=== PATIENT | female | born 1935 | race Caucasian/White ===

== ENCOUNTER → 2016-09-06 | Outpatient (CLI) | payer MEDICARE, BC ==
[2016-09-06 07:17] LABS: INR 1.2 (<1.1); Partial Thromboplastin Time 25.9 sec (22.0-30.0); Prothrombin Time 11.5 sec (9.0-12.0)
== END | disposition home or self-care (01) ==
LOC: LABWHC1 06:39
PROVIDERS: ATTEND Physical Medicine & Rehabilitation
DX: M54.5 Low back pain (principal); M54.17 Radiculopathy, lumbosacral region; M47.817 Spondylosis without myelopathy or radiculopathy, lumbosacral region; M25.551 Pain in right hip; M43.16 Spondylolisthesis, lumbar region; M41.26 Other idiopathic scoliosis, lumbar region; R20.2 Paresthesia of skin
CPT/HCPCS: 36415; 85610; 85730

== ENCOUNTER → 2016-10-04 | Outpatient (CLI) | payer MEDICARE, BC ==
[2016-10-04 07:53] LABS: INR 1.2 (<1.1); Partial Thromboplastin Time 25.3 sec (22.0-30.0); Prothrombin Time 11.7 sec (9.0-12.0)
== END | disposition home or self-care (01) ==
LOC: LABWHC1 06:38
PROVIDERS: ATTEND Family Medicine
DX: M54.17 Radiculopathy, lumbosacral region (principal); M47.817 Spondylosis without myelopathy or radiculopathy, lumbosacral region; M54.5 Low back pain; M25.551 Pain in right hip; M25.552 Pain in left hip; M43.16 Spondylolisthesis, lumbar region; M41.26 Other idiopathic scoliosis, lumbar region; Z79.01 Long term (current) use of anticoagulants
CPT/HCPCS: 36415; 85610; 85730

== ENCOUNTER → 2016-11-01 | Outpatient (CLI) | payer MEDICARE, BC ==
[2016-11-01 08:54] LABS: INR 1.1 (<1.1); Partial Thromboplastin Time 25.4 sec (22.0-30.0); Prothrombin Time 10.8 sec (9.0-12.0)
== END | disposition home or self-care (01) ==
LOC: LABWHC1 06:39
PROVIDERS: ATTEND Physical Medicine & Rehabilitation
DX: M54.5 Low back pain (principal); M47.817 Spondylosis without myelopathy or radiculopathy, lumbosacral region; M25.551 Pain in right hip; M25.552 Pain in left hip; M43.16 Spondylolisthesis, lumbar region; M41.26 Other idiopathic scoliosis, lumbar region; M51.17 Intervertebral disc disorders with radiculopathy, lumbosacral region; Z79.01 Long term (current) use of anticoagulants
CPT/HCPCS: 36415; 85610; 85730

== ENCOUNTER → 2016-11-20 | Outpatient (CLI) | payer MEDICARE, BC ==
[2016-11-20 07:27] LABS: INR 1.1 (<1.1); Partial Thromboplastin Time 24.8 sec (22.0-30.0); Prothrombin Time 10.6 sec (9.0-12.0)
== END | disposition home or self-care (01) ==
LOC: LABWHC1 06:36
PROVIDERS: ATTEND Physical Medicine & Rehabilitation
DX: M54.17 Radiculopathy, lumbosacral region (principal); M47.817 Spondylosis without myelopathy or radiculopathy, lumbosacral region; M25.551 Pain in right hip; M25.552 Pain in left hip; M54.5 Low back pain; M41.26 Other idiopathic scoliosis, lumbar region; Z79.01 Long term (current) use of anticoagulants
CPT/HCPCS: 36415; 85610; 85730

== ENCOUNTER → 2016-12-31 | Outpatient (CLI) | payer MEDICARE, BC ==
[2016-12-31 08:26] LABS: INR 1.1 (<1.1); Partial Thromboplastin Time 24.7 sec (22.0-30.0); Prothrombin Time 10.7 sec (9.0-12.0)
== END | disposition home or self-care (01) ==
LOC: LABMAIN 06:31
PROVIDERS: ATTEND Physical Medicine & Rehabilitation
DX: Z79.01 Long term (current) use of anticoagulants (principal)
CPT/HCPCS: 36415; 85610; 85730

== ENCOUNTER → 2017-07-13 | Outpatient (CLI) | payer MEDICARE, BC | END | disposition home or self-care (01) | LOC: LABWHC1 14:08 | PROVIDERS: ATTEND Family Medicine | DX: R19.7 Diarrhea, unspecified (principal) | CPT/HCPCS: 87045; 87046; 87324; 87328; 87329 ==

== ENCOUNTER 2021-11-08 07:44 | Inpatient (IN) | payer MEDICARE ==
[2021-11-08] MEDS ORDERED: ONDANSETRON 4 MG/2 ML VIAL IVP STA (08:17)
[2021-11-08] MEDS ORDERED: KETOROLAC 15 MG/ML 1 ML VIAL IVP STA (08:17)
--- NOTE | 2021-11-08 08:43 | ED ---
Fall HPI - General Chief Complaint: Fall Stated Complaint: fall Time Seen by Provider: 11/08/21 07:52 Source: patient, EMS, RN notes reviewed Mode of arrival: EMS Limitations: physical limitation - History of Present Illness Initial Comments: This an 86-year-old female presents emergency Department via EMS chief complaint of fall. Patient states she is trip and fall complains of left hip left knee pain. Patient states she's had prior knee issues. Patient denies any head injury no loss conscious. Patient is refusing pain meds seen it's going to make her sick. Patient denies any chest discomfort, shortness breath, fevers or chills no abdominal complaints no other associated symptoms. - Related Data Home Medications Medication Instructions Recorded Confirmed Budesonide-Formot 160-4.5 Mcg 2 puff INHALATION RT-BID 03/06/14 06/19/16 [Symbicort 160-4.5 Mcg Inhaler] Levothyroxine Sodium [Synthroid] 50 mcg PO DAILY 03/06/14 06/19/16 Montelukast [Singulair] 10 mg PO HS 06/20/15 06/19/16 Metoprolol Tartrate [Lopressor] 50 mg PO BID 06/17/16 06/19/16 Losartan/Hydrochlorothiazide 1 tab PO DAILY 06/19/16 06/19/16 [Losartan-Hctz 100-25 mg Tab] Multivitamins, Thera [Multivitamin 1 tab PO DAILY 06/19/16 06/19/16 (formulary)] Warfarin [Coumadin] 7.5 mg PO SUTHFRSA 06/19/16 06/19/16 Previous Rx's Medication Instructions Recorded Docusate [Colace] 100 mg PO BID cap 06/27/16 Famotidine [Pepcid] 20 mg PO DAILY tab 06/27/16 Gabapentin [Neurontin] 300 mg PO TID cap 06/27/16 Lidocaine 5% Patch [Lidoderm 5% 1 patch TOPICAL Q24H patch 06/27/16 Patch] Mag Hydrox/Al Hydrox/Simeth 30 ml PO QID PRN #0 cup 06/27/16 [Maalox] Meloxicam [Mobic] 7.5 mg PO DAILY tab 06/27/16 Metoprolol Tartrate [Lopressor] 25 mg PO DAILY@1200 tab 06/27/16 Warfarin [Coumadin] 2.5 mg PO ONCE@1800 tab 06/27/16 amLODIPine [Norvasc] 5 mg PO DAILY tab 06/27/16 cloNIDine HCL [Catapres] 0.1 mg PO Q4HR PRN #0 tab 06/27/16 oxyCODONE-APAP 10-325MG [Percocet 1 each PO Q6H PRN #120 tab 06/27/16 10-325 mg] Allergies Allergy/AdvReac Type Severity Reaction Status Date / Time No Known Allergies Allergy Verified 11/08/21 08:07 Review of Systems ROS Statement: Those systems with pertinent positive or pertinent negative responses have been documented in the HPI. ROS Other: All systems not noted in ROS Statement are negative. Past Medical History Past Medical History: Atrial Fibrillation, Asthma, Hypertension, Osteoarthritis (OA), Thyroid Disorder Additional Past Medical History / Comment(s): Aortic regurgitation, hypothyroid, DJD History of Any Multi-Drug Resistant Organisms: C-DIFF Date of last positivie culture/infection: 11/16/2014 MDRO Source:: stool Past Surgical History: Hysterectomy, Joint Replacement, Orthopedic Surgery Additional Past Surgical History / Comment(s): BILATERAL CATARACTS (2013) TOTAL LEFT KNEE REPLACEMENT, R hip IT nailing, colonoscopy, bronchoscopy Past Anesthesia/Blood Transfusion Reactions: No Reported Reaction Past Psychological History: No Psychological Hx Reported Smoking Status: Never smoker Past Alcohol Use History: Rare Past Drug Use History: None Reported - Past Family History Father Family Medical History: Cancer Additional Family Medical History / Comment(s): unsure. "Possibly bone cancer," per patient. Sister(s) Family Medical History: Cancer Additional Family Medical History / Comment(s): Lymphoma Brother(s) Family Medical History: Cancer Additional Family Medical History / Comment(s): Melanoma General Exam Limitations: no limitations General appearance: alert, in no apparent distress Head exam: Present: atraumatic, normocephalic, normal inspection Eye exam: Present: normal appearance, PERRL, EOMI. Absent: scleral icterus, conjunctival injection, periorbital swelling ENT exam: Present: normal exam, normal oropharynx, mucous membranes moist Neck exam: Present: normal inspection, full ROM. Absent: tenderness, meningismus, lymphadenopathy Respiratory exam: Present: normal lung sounds bilaterally. Absent: respiratory distress, wheezes, rales, rhonchi, stridor Cardiovascular Exam: Present: regular rate, normal rhythm, normal heart sounds. Absent: systolic murmur, diastolic murmur, rubs, gallop, clicks Extremities exam: Present: other (Left hip, left knee moderate tenderness, patient is flexed position, leg is neurovascularly intact there is no other obvious deformity, no ecchymosis noted) Back exam: Present: full ROM. Absent: tenderness Neurological exam: Present: alert Skin exam: Present: warm, dry, intact, normal color. Absent: rash Course Vital Signs 11/08/21 07:50 Temperature 98.0 F Pulse Rate 70 Respiratory 20 Rate Blood Pressure 142/79 O2 Sat by Pulse 93 L Oximetry Medical Decision Making - Medical Decision Making I discuss case with orthopedics associate who accepts admission for surgery recommends patient be admitted to medicine given multiple morbidities and patient need to be cleared for surgery. Disposition Clinical Impression: Fall, Hip fracture, left Disposition: ADMITTED IP TO THIS [facility] Condition: Fair Referrals: Ander Wolff MD [Primary Care Provider] - 1-2 days
--- NOTE | 2021-11-08 09:17 | XR ---
EXAMINATION TYPE: XR chest 1V DATE OF EXAM: 11/08/2021 COMPARISON: Chest x-ray June 20, 2015. Chest CT June 09, 2016. HISTORY: Presurgical study. Recent hip fracture. TECHNIQUE: Single frontal supine view of the chest is obtained. FINDINGS: There is chronic parenchymal change without suspicious focal air space opacity, pleural ef fusion, or pneumothorax seen. Suggestion of new nodularity along the left superior heart border towar ds further workup. Cardiomegaly remains present with atherosclerotic thoracic aorta. The osseous st ructures are intact. IMPRESSION: Chronic parenchymal changes and cardiomegaly without acute pulmonary process. New nodula rity along the left superior heart border, advise CT to further evaluate.
[2021-11-08] MEDS ORDERED: NALOXONE 0.4 MG/ML 1 ML VIAL IV PRN ×2 (09:48→09:49)
[2021-11-08] MEDS ORDERED: HYDROmorphone 0.5 MG/0.5 ML SYRINGE IVP PRN (09:48)
--- NOTE | 2021-11-08 09:49 | XR ---
EXAMINATION TYPE: AP view pelvis and 2 views left hip DATE OF EXAM: 11/08/2021 Comparison: 06/19/2016 Clinical History: 86-year-old female with fall pain Findings: There is previous antegrade intramedullary nail and screw fixation of the right hip. Chronic healed f racture deformities right superior and inferior pubic rami. There is a annual transcervical femoral n rigoberto fracture at the left with angulation and proximal migration as well as external rotation. Osteope michael. Impression: Displaced, angulated, and proximally migrated transcervical left femoral neck fracture. Chronic heale d fracture deformities right superior and inferior pubic rami.
--- NOTE | 2021-11-08 09:51 | XR ---
EXAMINATION TYPE: XR knee limited LT DATE OF EXAM: 11/08/2021 COMPARISON: 03/16/2014 HISTORY: 86-year-old female with fall and pain TECHNIQUE: 2 views FINDINGS: 2 views demonstrating left knee total arthroplasty. Both distal femoral and proximal tibial component s of the prosthesis appear well seated without periprosthetic fracture. There is a small knee joint e ffusion noted without richard lipohemarthrosis. Mild anterior soft tissue swelling. Vascular calcificat ion. IMPRESSION: Mild anterior soft tissue swelling and small knee joint effusion, probably reactive. Otherwise, uncom plicated appearance to the left total knee arthroplasty on these 2 views.
[2021-11-08] MEDS ORDERED: ACETAMINOPHEN TAB 325 MG TAB PO PRN (10:31)
[2021-11-08] MEDS ORDERED: METOPROLOL TARTRATE 50 MG TAB PO SCH (10:45)
[2021-11-08 10:48] LABS: Appearance,Urine Clear (Clear); Bilirubin,Urine Negative (Negative); Blood,Urine Negative (Negative); Color,Urine Light Yellow; Glucose,Urine (UA) Negative (Negative); Hyaline Casts,Urine 1 /lpf (0-2); Ketones,Urine Negative (Negative); Leukocyte Esterase,Urine Negative (Negative); Mucus,Urine Rare /hpf; Nitrite,Urine Negative (Negative); PH, Urine 7.5 (5.0-8.0); Protein,Urine 1+ (Negative); RBC,Urine 1 /hpf (0-5); Specific Gravity,Urine 1.009 (1.001-1.035); Urobilinogen,Urine <2.0 mg/dL (<2.0); WBC,Urine <1 /hpf (0-5)
[2021-11-08 10:53] LABS: Basophils % (A) 0 %; Eosinophils % (A) 0 %; HGB 12.4 gm/dL (11.4-16.0); Lymphocytes # (A) 0.5 k/uL (1.0-4.8); Lymphocytes % (A) 5 %; MCH 33.9 pg (25.0-35.0); MCHC 33.6 g/dL (31.0-37.0); Macrocytosis Slight; Mean Platelet Volume 7.7; Monocytes # (A) 0.6 k/uL (0-1.0); Monocytes % (A) 6 %; Neutrophils % (A) 88 %; Platelet Count 149 k/uL (150-450); RBC 3.66 m/uL (3.80-5.40); RDW 13.8 % (11.5-15.5); WBC 10.2 k/uL (3.8-10.6)
[2021-11-08 11:08] LABS: ALT 22 U/L (4-34); AST 49 U/L (14-36); African American GFR (CKD) >90 (>60 ml/min/1.73 sqM); Albumin 4.3 g/dL (3.5-5.0); Alkaline Phosphatase 79 U/L (38-126); Anion Gap 9 mmol/L; Blood Urea Nitrogen 22 mg/dL (7-17); Calcium 9.3 mg/dL (8.4-10.2); Carbon Dioxide 23 mmol/L (22-30); Chloride 97 mmol/L (98-107); Glucose 116 mg/dL (74-99); Magnesium 1.6 mg/dL (1.6-2.3); Non-African American GFR(CKD) 79 (>60 ml/min/1.73 sqM); Potassium 3.8 mmol/L (3.5-5.1); Sodium 129 mmol/L (137-145); Total Bilirubin 0.9 mg/dL (0.2-1.3); Total Protein 8.2 g/dL (6.3-8.2)
[2021-11-08 11:11] LABS: INR 2.5 (<1.2); Partial Thromboplastin Time 28.6 sec (22.0-30.0); Prothrombin Time 24.9 sec (9.0-12.0)
[2021-11-08] MEDS: LOSARTAN-HCTZ 50-12.5 MG 1 EACH TAB PO SCH (11:40)
[2021-11-08] MEDS: CALCIUM CARBONATE 500 MG CHEWABLE PO SCH (11:40)
[2021-11-08] MEDS: LEVOTHYROXINE 50 MCG TAB PO SCH (11:40)
[2021-11-08] MEDS: LIDOCAINE 5% PATCH TOPICAL SCH (11:41)
[2021-11-08] MEDS: KETOROLAC 15 MG/ML 1 ML VIAL IVP SCH ×3 (11:42→23:35)
--- NOTE | 2021-11-08 12:39 | P.HPIM ---
History of Present Illness H&P Date: 11/08/21 Chief Complaint: Fall Patient is a pleasant 86-year-old female, who presented to the emergency room after a fall. Patient states she is tripped and fell onto left knee and left hip while getting out of bed in the morning. Patient denies syncope, loss of consciousness, or head injury. Patient has a pertinent medical history of A. fib on Coumadin, asthma, hypertension, osteoarthritis, hypothyroidism, and aortic regurgitation. Patient has a surgical history of total left knee replacement and right hip IT nailing. Hip x-ray found displaced, angulated and proximally migrated transcervical left femoral neck fracture. Left knee x-ray found mild anterior soft tissue swelling and small knee joint effusion. Chest x-ray found chronic parenchymal changes and cardiomegaly without acute pulmonary process. EKG showed A. fib with a rate of 100. INR was 2.5. Patient will be admitted for pain control and to obtain clearance for surgical intervention. Cardiology was consulted for cardio clearance and management of anticoagulant. Review of Systems Constitutional: Denies chills, Denies fever Ears, nose, mouth and throat: Denies dysphagia, Denies sore throat Cardiovascular: Reports irregular heart beat, Denies edema, Denies shortness of breath Respiratory: Denies cough, Denies wheezing Gastrointestinal: Denies abdominal pain, Denies nausea, Denies vomiting Genitourinary: Denies dysuria Musculoskeletal: Reports fractures, Reports low back pain, Reports myalgias Musculoskeletal: left: hip pain, knee pain Integumentary: Denies rash, Denies wounds Neurological: Reports hearing difficulties, Denies change in speech, Denies double vision, Denies syncope, Denies vertigo, Denies visual changes Psychiatric: Denies anxiety, Denies confusion Endocrine: Denies fatigue, Denies high blood sugars Hematologic/Lymphatic: Reports easy bruising Allergic/Immunologic: Denies wheezing Past Medical History Past Medical History: Atrial Fibrillation, Asthma, Hypertension, Osteoarthritis (OA), Thyroid Disorder Additional Past Medical History / Comment(s): Aortic regurgitation, hypothyroid, DJD History of Any Multi-Drug Resistant Organisms: C-DIFF Date of last positivie culture/infection: 11/16/2014 MDRO Source:: stool Past Surgical History: Hysterectomy, Joint Replacement, Orthopedic Surgery Additional Past Surgical History / Comment(s): BILATERAL CATARACTS (2013) TOTAL LEFT KNEE REPLACEMENT, R hip IT nailing, colonoscopy, bronchoscopy Past Anesthesia/Blood Transfusion Reactions: No Reported Reaction Past Psychological History: No Psychological Hx Reported Smoking Status: Never smoker Past Alcohol Use History: Rare Past Drug Use History: None Reported - Past Family History Father Family Medical History: Cancer Additional Family Medical History / Comment(s): unsure. "Possibly bone cancer," per patient. Sister(s) Family Medical History: Cancer Additional Family Medical History / Comment(s): Lymphoma Brother(s) Family Medical History: Cancer Additional Family Medical History / Comment(s): Melanoma Medications and Allergies Home Medications Medication Instructions Recorded Confirmed Type Levothyroxine Sodium [Synthroid] 50 mcg PO DAILY 03/06/14 11/08/21 History Metoprolol Tartrate [Lopressor] 50 mg PO BID 06/17/16 11/08/21 History Losartan/Hydrochlorothiazide 1 tab PO DAILY 06/19/16 11/08/21 History [Losartan-Hctz 100-25 mg Tab] Multivitamins, Thera [Multivitamin 1 tab PO DAILY 06/19/16 11/08/21 History (formulary)] Warfarin [Coumadin] 5 mg PO HS 06/19/16 11/08/21 History Lidocaine 5% Patch [Lidoderm 5% 1 patch TOPICAL Q24H patch 06/27/16 11/08/21 Rx Patch] Calcium Carbonate [Calcium] 600 mg PO DAILY 11/08/21 11/08/21 History Metoprolol Tartrate 25 mg PO DAILY@1200 11/08/21 11/08/21 History Allergies Allergy/AdvReac Type Severity Reaction Status Date / Time No Known Allergies Allergy Verified 11/08/21 10:11 Physical Exam Vitals: Vital Signs Temp Pulse Resp BP Pulse Ox 11/08/21 11:56 102 H 18 138/76 94 L 11/08/21 07:50 98.0 F 70 20 142/79 93 L Intake and Output 11/07/21 11/08/21 11/08/21 22:59 06:59 14:59 Output Total 250 Balance -250 Output: Urine 250 Uretheral (Garza) 250 Other: Weight 50.802 kg - Constitutional General appearance: average body habitus, cooperative, no acute distress - EENT Eyes: EOMI, PERRLA ENT: hard of hearing, normal oropharynx Ears: bilateral: normal - Neck Neck: normal ROM - Respiratory Respiratory: bilateral: diminished - Cardiovascular Heart rate: 100 Rhythm: irregularly irregular radial pulse Peripheral Pulses: bilateral: Normal dorsalis pedis Peripheral Pulses: bilateral: Normal - Gastrointestinal General gastrointestinal: normal bowel sounds, soft - Integumentary Integumentary: normal turgor - Neurologic Neurologic: focal deficits - Musculoskeletal non weightbearing at this time, upper extrem normal strength decreased range of motion in left lower extrem - Psychiatric confused at times Psychiatric: A&O x's 3, appropriate affect Results CBC & Chem 7: 11/08/21 10:23 11/08/21 10:23 Labs: Abnormal Lab Results - Last 24 Hours (Table) 11/08/21 11/08/21 11/08/21 Range/Units 10:23 10:23 10:23 RBC 3.66 L (3.80-5.40) m/uL MCV 101.0 H (80.0-100.0) fL Plt Count 149 L (150-450) k/uL Neutrophils # 9.0 H (1.3-7.7) k/uL Lymphocytes # 0.5 L (1.0-4.8) k/uL PT 24.9 H (9.0-12.0) sec INR 2.5 H (<1.2) Sodium 129 L (137-145) mmol/L Chloride 97 L (98-107) mmol/L BUN 22 H (7-17) mg/dL Glucose 116 H (74-99) mg/dL AST 49 H (14-36) U/L Urine Protein (Negative) Urine Mucus (None) /hpf 11/08/21 Range/Units 10:33 RBC (3.80-5.40) m/uL MCV (80.0-100.0) fL Plt Count (150-450) k/uL Neutrophils # (1.3-7.7) k/uL Lymphocytes # (1.0-4.8) k/uL PT (9.0-12.0) sec INR (<1.2) Sodium (137-145) mmol/L Chloride (98-107) mmol/L BUN (7-17) mg/dL Glucose (74-99) mg/dL AST (14-36) U/L Urine Protein 1+ H (Negative) Urine Mucus Rare H (None) /hpf Chest x-ray: report reviewed Thrombosis Risk Factor Assmnt - DVT/VTE Prophylaxis DVT/VTE Prophylaxis: Mechanical Prophylaxis ordered, Contraindicated - See note (on coumadin, held for hip surgery) - Choose All That Apply Any of the Below Risk Factors Present?: Yes Each Risk Factor Represents 2 Points: Major surgery, Patient confined to bed Each Risk Factor Represents 3 Points: Age 75 years or older Thrombosis Risk Factor Assessment Total Risk Factor Score: 7 Thrombosis Risk Factor Assessment Level: High Risk Assessment and Plan Assessment: Left femoral neck fracture Left knee soft tissue swelling and pain Atrial fib with controlled ventricular response, on Coumadin Hypertension Osteoarthritis Hypothyroidism History of aortic regurgitation Plan: Orthopedic consult for left hip fracture Cardio consult for surgical clearance, echo ordered continue toradol and tylenol for pain Coumadin on hold for possible surgery ekg monitor tech to assess afib rate PT and OT consult for rehab further recommendations to come based on patients clinical course Time with Patient: Greater than 30
[2021-11-08] MEDS: SODIUM CHLORIDE 0.9% 1,000 ML IV SCH (13:11)
--- NOTE | 2021-11-08 13:12 | P.CRDCN ---
History of Present Illness Consult date: 11/08/21 History of present illness: HISTORY OF PRESENT ILLNESS: This is a 86-year-old female with a past medical history significant for persistent atrial fibrillation on warfarin, hypertension, hyperlipidemia, valvular heart disease. Patient follows in the office with Dr. Preciado. We have been asked to see the patient in consultation for cardiac clearance. Patient examined at the bedside. Patient presented to the hospital secondary to fall. Hip x-ray revealed displaced, angulated, and proximally migrated trans-cervical left femoral neck fracture. Patient currently denies chest pain or pressure. She denies shortness of breath. Vital signs are stable. * EKG reveals atrial fibrillation with a heart rate of 102. * Chest xray chronic parenchymal changes and cardiomegaly without acute pulmonary process. New nodularity along the left superior heart border. * Laboratory data: WBC 10.2. Hemoglobin 12.4. Platelet count 149. INR 2.5. Sodium 129. BUN 22. Creatinine 0.67. Magnesium 1.6. * Current home cardiac medications include metoprolol tartrate 50 mg twice a day, losartanhydrochlorothiazide 23956 milligrams daily, metoprolol titrate 25 mg daily, warfarin 5 mg at night * Most recent echocardiogram obtained in October 2020 revealed ejection fraction 55%, moderate aortic regurgitation, moderate mitral regurgitation, moderate tricuspid regurgitation, and moderate pulmonary artery hypertension * Patient underwent Lexiscan stress test in December 2015 which was negative for ischemia REVIEW OF SYSTEMS: At the time of my exam: CONSTITUTIONAL: Denies fever or chills. HEENT: Denies blurred vision, vision changes, or eye pain. Denies hemoptysis CARDIOVASCULAR: Denies chest pain. Denies orthopnea. Denies PND. Denies palpitations RESPIRATORY: Denies shortness of breath. GASTROINTESTINAL: Denies abdominal pain. Denies nausea or vomiting. HEMATOLOGIC: Denies bleeding disorders. GENITOURINARY: Denies any blood in urine. SKIN: Denies pruitis. Denies rash. PHYSICAL EXAM: VITAL SIGNS: Reviewed. GENERAL: Well-developed in no acute distress. HEENT: Head is normocephalic. Pupils are equal, round. Sclerae anicteric. Mucous membranes of the mouth are moist. Neck supple. No JVD or thyromegaly LUNGS: Respirations even and unlabored. Lungs essentially clear to auscultation bilaterally. HEART: Irregular rate and rhythm. S1 and S2 heard. Systolic murmur noted ABDOMEN: Soft. Nondistended. Nontender. EXTREMITIES: Normal range of motion. No clubbing or cyanosis. Peripheral pulses intact. No lower extremity edema NEUROLOGIC: Awake and alert. Oriented x 3. ASSESSMENT: Left hip fracture, status post fall Persistent atrial fibrillation Hypertension Hyperlipidemia Valvular heart disease PLAN: Obtain 2-D echo to assess cardiac structure and function Hold Coumadin Increase metoprolol to 50mg TID Patient has no complaints of angina and is clinically not in heart failure Recommend cautious fluid administration Recommend optimal blood pressure control There are no absolute contraindications from a cardiac standpoint to undergo surgical intervention with orthopedics Further recommendations for inpatient course Nurse practitioner note has been reviewed by physician. Signing provider agrees with the documented findings, assessment, and plan of care. Past Medical History Past Medical History: Atrial Fibrillation, Asthma, Hypertension, Osteoarthritis (OA), Thyroid Disorder Additional Past Medical History / Comment(s): Aortic regurgitation, hypothyroid, DJD History of Any Multi-Drug Resistant Organisms: C-DIFF Date of last positivie culture/infection: 11/16/2014 MDRO Source:: stool Past Surgical History: Hysterectomy, Joint Replacement, Orthopedic Surgery Additional Past Surgical History / Comment(s): BILATERAL CATARACTS (2013) TOTAL LEFT KNEE REPLACEMENT, R hip IT nailing, colonoscopy, bronchoscopy Past Anesthesia/Blood Transfusion Reactions: No Reported Reaction Past Psychological History: No Psychological Hx Reported Smoking Status: Never smoker Past Alcohol Use History: Rare Past Drug Use History: None Reported - Past Family History Father Family Medical History: Cancer Additional Family Medical History / Comment(s): unsure. "Possibly bone cancer," per patient. Sister(s) Family Medical History: Cancer Additional Family Medical History / Comment(s): Lymphoma Brother(s) Family Medical History: Cancer Additional Family Medical History / Comment(s): Melanoma Medications and Allergies Home Medications Medication Instructions Recorded Confirmed Type Levothyroxine Sodium [Synthroid] 50 mcg PO DAILY 03/06/14 11/08/21 History Metoprolol Tartrate [Lopressor] 50 mg PO BID 06/17/16 11/08/21 History Losartan/Hydrochlorothiazide 1 tab PO DAILY 06/19/16 11/08/21 History [Losartan-Hctz 100-25 mg Tab] Multivitamins, Thera [Multivitamin 1 tab PO DAILY 06/19/16 11/08/21 History (formulary)] Warfarin [Coumadin] 5 mg PO HS 06/19/16 11/08/21 History Lidocaine 5% Patch [Lidoderm 5% 1 patch TOPICAL Q24H patch 06/27/16 11/08/21 Rx Patch] Calcium Carbonate [Calcium] 600 mg PO DAILY 11/08/21 11/08/21 History Metoprolol Tartrate 25 mg PO DAILY@1200 11/08/21 11/08/21 History Allergies Allergy/AdvReac Type Severity Reaction Status Date / Time No Known Allergies Allergy Verified 11/08/21 10:11 Physical Exam Vitals: Vital Signs Temp Pulse Resp BP Pulse Ox 11/08/21 07:50 98.0 F 70 20 142/79 93 L Intake and Output 11/07/21 11/08/21 11/08/21 22:59 06:59 14:59 Output Total 250 Balance -250 Output: Urine 250 Uretheral (Garza) 250 Other: Weight 50.802 kg Results 11/08/21 10:23 11/08/21 10:23 Cardiac Enzymes 11/08/21 Range/Units 10:23 AST 49 H (14-36) U/L Coagulation 11/08/21 Range/Units 10:23 PT 24.9 H (9.0-12.0) sec APTT 28.6 (22.0-30.0) sec CBC 11/08/21 Range/Units 10:23 WBC 10.2 (3.8-10.6) k/uL RBC 3.66 L (3.80-5.40) m/uL Hgb 12.4 (11.4-16.0) gm/dL Hct 37.0 (34.0-46.0) % Plt Count 149 L (150-450) k/uL Comprehensive Metabolic Panel 11/08/21 Range/Units 10:23 Sodium 129 L (137-145) mmol/L Potassium 3.8 (3.5-5.1) mmol/L Chloride 97 L (98-107) mmol/L Carbon Dioxide 23 (22-30) mmol/L BUN 22 H (7-17) mg/dL Creatinine 0.67 (0.52-1.04) mg/dL Glucose 116 H (74-99) mg/dL Calcium 9.3 (8.4-10.2) mg/dL AST 49 H (14-36) U/L ALT 22 (4-34) U/L Alkaline Phosphatase 79 (38-126) U/L Total Protein 8.2 (6.3-8.2) g/dL Albumin 4.3 (3.5-5.0) g/dL Current Medications Generic Name Dose Route Start Last Admin Trade Name Freq PRN Reason Stop Dose Admin Acetaminophen 650 mg 11/08/21 10:31 Acetaminophen Tab 325 Mg Tab PO Q4HR PRN Fever and/ or Pain Hydrocodone Bitart/Acetaminophen 1 each 11/08/21 09:48 Hydrocodone/Apap 5-325mg 1 Each Tab PO Q4HR PRN Moderate Pain Calcium Carbonate/Glycine 500 mg 11/08/21 10:30 11/08/21 11:40 Calcium Carbonate 500 Mg Chewable PO 500 mg DAILY REED Administration HCTZ/Losartan Potassium 2 each 11/08/21 10:45 11/08/21 11:40 Losartan-Hctz 50-12.5 Mg 1 Each Tab PO 2 each DAILY REED Administration Ketorolac Tromethamine 15 mg 11/08/21 12:00 11/08/21 11:42 Ketorolac 15 Mg/Ml 1 Ml Vial IVP 11/11/21 10:42 15 mg Q6HR REED Administration Levothyroxine Sodium 50 mcg 11/08/21 10:45 11/08/21 11:40 Levothyroxine 50 Mcg Tab PO 50 mcg 0630 REED Administration Lidocaine 1 patch 11/08/21 10:45 11/08/21 11:41 Lidocaine 5% Patch TOPICAL 1 patch Q24HR REED Administration Protocol Metoprolol Tartrate 50 mg 11/08/21 10:45 11/08/21 11:41 Metoprolol Tartrate 50 Mg Tab PO 50 mg BID REED Administration Metoprolol Tartrate 25 mg 11/09/21 12:00 Metoprolol Tartrate 25 Mg Tab PO DAILY@1200 [facility] Multivitamins 1 each 11/09/21 09:00 Multivitamins, Thera 1 Each Tab PO DAILY [facility] Naloxone HCl 0.2 mg 11/08/21 09:49 Naloxone 0.4 Mg/Ml 1 Ml Vial IV Q2M PRN Opioid Reversal Ondansetron HCl 4 mg 11/08/21 09:48 Ondansetron 4 Mg/2 Ml Vial IVP Q8HR PRN Nausea And Vomiting Intake and Output 11/07/21 11/08/21 11/08/21 22:59 06:59 14:59 Output Total 250 Balance -250 Output: Urine 250 Uretheral (Garza) 250 Other: Weight 50.802 kg Patient Weight 11/09/21 06:59 Weight 50.802 kg 11/08/21 10:23 11/08/21 10:23
[2021-11-08] MEDS ORDERED: RX INFO: IV CONTRAST WAS GIVEN 1 EACH MISC MISCELLANE PRN (14:53)
--- NOTE | 2021-11-08 15:56 | CT ---
EXAMINATION TYPE: CT chest w con DATE OF EXAM: 11/08/2021 COMPARISON: Chest CT June 09, 2016. Chest x-ray earlier today HISTORY: Xray follow up. CT DLP: 295.5 mGycm. Automated Exposure Control for Dose Reduction was Utilized. TECHNIQUE: CT scan of the thorax is performed following with IV Contrast, patient injected with 100 mL of Isovue 300. FINDINGS: LUNGS: Increasing peripheral reticulation and intralobular septal thickening in the right lung. No hodge spicious greater than 5 mm pulmonary nodules or masses with particular attention to the left superior heart border at area of concern on x-ray. There is no pleural effusion or pneumothorax seen. The tr acheobronchial tree is patent. MEDIASTINUM: There are no greater than 1 cm hilar or mediastinal lymph nodes. No pericardial effusi on is seen. Cardiomegaly with severe right atrial dilatation. Enlarged pulmonary arteries suggesting underlying pulmonary artery hypertension. Moderate calcified plaque of the aorta. OTHER: No additional significant abnormality is seen. IMPRESSION: No suspicious new pulmonary nodules or masses. Cardiomegaly with mild right-sided interst itial edema.
[2021-11-08] MEDS: METOPROLOL TARTRATE 50 MG TAB PO SCH ×2 (17:15→21:42)
[2021-11-08] MEDS: MORPHINE SULFATE 2 MG/ML SYRINGE IVP PRN (17:16)
[2021-11-08] MEDS: HYDROcodone/APAP 5-325MG 1 EACH TAB PO PRN (21:41)
[2021-11-09] MEDS: HYDROcodone/APAP 5-325MG 1 EACH TAB PO PRN (03:20)
[2021-11-09] MEDS: KETOROLAC 15 MG/ML 1 ML VIAL IVP SCH ×4 (05:41→23:43)
[2021-11-09] MEDS: LEVOTHYROXINE 50 MCG TAB PO SCH (05:42)
[2021-11-09] MEDS: MORPHINE SULFATE 2 MG/ML SYRINGE IVP PRN (05:45)
[2021-11-09] MEDS ORDERED: ONDANSETRON 4 MG/2 ML VIAL IVP ONE ×2 (06:42→15:51)
[2021-11-09] MEDS ORDERED: DEXAMETHASONE SOD PHOSPHATE 4 MG/ML 1 ML VIAL IV ONE (06:42)
[2021-11-09] MEDS ORDERED: LIDOCAINE 1% (10MG/ML) FOR IV START INTRADERMA PRN (06:42)
[2021-11-09] MEDS ORDERED: HYDROmorphone 0.5 MG/0.5 ML SYRINGE IVP PRN ×3 (07:00→08:09)
[2021-11-09] MEDS: LOSARTAN-HCTZ 50-12.5 MG 1 EACH TAB PO SCH (08:20)
[2021-11-09] MEDS: LACTATED RINGERS 1,000 ML IV SCH ×3 (08:20→16:11)
[2021-11-09] MEDS: CALCIUM CARBONATE 500 MG CHEWABLE PO SCH (08:20)
[2021-11-09] MEDS: HYDROmorphone 0.5 MG/0.5 ML SYRINGE IVP PRN ×3 (08:21→21:41)
[2021-11-09] MEDS: METOPROLOL TARTRATE 50 MG TAB PO SCH ×3 (08:21→22:36)
[2021-11-09] MEDS: LIDOCAINE 5% PATCH TOPICAL SCH (08:25)
[2021-11-09] MEDS: MULTIVITAMINS, THERA 1 EACH TAB PO SCH (08:25)
--- NOTE | 2021-11-09 08:43 | P.CNOR ---
History of Present Illness - [facility] Consult date: 11/09/21 Consult reason: fracture History of present illness: Patient is an 86-year-old female seen at bedside this morning in consultation for left hip fracture. She presented to the emergency Department yesterday via EMS chief complaint of fall. Patient states she tripped and fell at home. Patient states she's had prior knee issues. Patient denies any head injury no loss conscious. She had prior surgery on right hip and knee per Dr. Brand. Patient denies any chest discomfort, shortness breath, fevers or chills no abdominal complaints no other associated symptoms. Review of Systems All systems: negative Constitutional: Denies chills, Denies fever Eyes: denies blurred vision, denies pain Ears, nose, mouth and throat: Denies headache, Denies sore throat Cardiovascular: Denies chest pain, Denies shortness of breath Respiratory: Denies cough Gastrointestinal: Denies abdominal pain, Denies diarrhea, Denies nausea, Denies vomiting Genitourinary: Denies dysuria, Denies hematuria Musculoskeletal: Denies myalgias Integumentary: Denies pruritus, Denies rash Neurological: Denies numbness, Denies weakness Psychiatric: Denies anxiety, Denies depression Endocrine: Denies fatigue, Denies weight change Past Medical History Past Medical History: Atrial Fibrillation, Asthma, Hypertension, Osteoarthritis (OA), Thyroid Disorder Additional Past Medical History / Comment(s): Aortic regurgitation, hypothyroid, DJD History of Any Multi-Drug Resistant Organisms: C-DIFF Year Discovered:: 11/16/2014 MDRO Source:: stool Past Surgical History: Hysterectomy, Joint Replacement, Orthopedic Surgery Additional Past Surgical History / Comment(s): BILATERAL CATARACTS (2013) TOTAL LEFT KNEE REPLACEMENT, R hip IT nailing, colonoscopy, bronchoscopy Past Anesthesia/Blood Transfusion Reactions: No Reported Reaction Past Psychological History: No Psychological Hx Reported Additional Psychological History / Comment(s): Pt resides alone. She has cane and rolling push walker. She is independent. She drives. Smoking Status: Never smoker Past Alcohol Use History: Rare Past Drug Use History: None Reported - Past Family History Father Family Medical History: Cancer Additional Family Medical History / Comment(s): unsure. "Possibly bone cancer," per patient. Sister(s) Family Medical History: Cancer Additional Family Medical History / Comment(s): Lymphoma Brother(s) Family Medical History: Cancer Additional Family Medical History / Comment(s): Melanoma Medications and Allergies Home Medications Medication Instructions Recorded Confirmed Type Levothyroxine Sodium [Synthroid] 50 mcg PO DAILY 03/06/14 11/08/21 History Metoprolol Tartrate [Lopressor] 50 mg PO BID 06/17/16 11/08/21 History Losartan/Hydrochlorothiazide 1 tab PO DAILY 06/19/16 11/08/21 History [Losartan-Hctz 100-25 mg Tab] Multivitamins, Thera [Multivitamin 1 tab PO DAILY 06/19/16 11/08/21 History (formulary)] Warfarin [Coumadin] 5 mg PO HS 06/19/16 11/08/21 History Lidocaine 5% Patch [Lidoderm 5% 1 patch TOPICAL Q24H patch 06/27/16 11/08/21 Rx Patch] Calcium Carbonate [Calcium] 600 mg PO DAILY 11/08/21 11/08/21 History Metoprolol Tartrate 25 mg PO DAILY@1200 11/08/21 11/08/21 History Allergies Allergy/AdvReac Type Severity Reaction Status Date / Time No Known Allergies Allergy Verified 11/08/21 10:11 Physical Examination Inspection of left lower extremity shows a shortened externally rotated left leg. There are no wounds. ROM of hip is not tested due to fracture. Neurovascular status is grossly intact with motor and sensation throughout left lower extremity. Calf is SNT. 2+ DP pulse and less than 2 sec cap refill is pres ent. Results Xrays of left hip shows a displaced femoral neck fracture - Labs Labs: Abnormal Lab Results - Last 24 Hours (Table) 11/08/21 11/08/21 11/08/21 Range/Units 10:23 10:23 10:23 RBC 3.66 L (3.80-5.40) m/uL MCV 101.0 H (80.0-100.0) fL Plt Count 149 L (150-450) k/uL Neutrophils # 9.0 H (1.3-7.7) k/uL Lymphocytes # 0.5 L (1.0-4.8) k/uL PT 24.9 H (9.0-12.0) sec INR 2.5 H (<1.2) Sodium 129 L (137-145) mmol/L Chloride 97 L (98-107) mmol/L BUN 22 H (7-17) mg/dL Glucose 116 H (74-99) mg/dL AST 49 H (14-36) U/L Urine Protein (Negative) Urine Mucus (None) /hpf 11/08/21 Range/Units 10:33 RBC (3.80-5.40) m/uL MCV (80.0-100.0) fL Plt Count (150-450) k/uL Neutrophils # (1.3-7.7) k/uL Lymphocytes # (1.0-4.8) k/uL PT (9.0-12.0) sec INR (<1.2) Sodium (137-145) mmol/L Chloride (98-107) mmol/L BUN (7-17) mg/dL Glucose (74-99) mg/dL AST (14-36) U/L Urine Protein 1+ H (Negative) Urine Mucus Rare H (None) /hpf H & H 11/08/21 Range/Units 10:23 Hgb 12.4 (11.4-16.0) gm/dL Hct 37.0 (34.0-46.0) % Coagulation 11/08/21 Range/Units 10:23 INR 2.5 H (<1.2) Result Diagrams: 11/08/21 10:23 11/08/21 10:23 - Diagnostic results Hip x-ray: report reviewed, image reviewed Assessment and Plan (1) Hip fracture, left Narrative/Plan: Patient has been reviewed with Dr. Celestin. Plan will be to proceed with surgical intervention including a left hip hemiarthroplasty. She has been NPO. Procedure and consent have been ordered. IM and cardiology also on board. She will likely need placement post op. Continue pain management, DVT prophylaxis and medical management. Current Visit: Yes Status: Acute Priority: Medium Code(s): S72.002A - FRACTURE OF UNSP PART OF NECK OF LEFT FEMUR, INIT SNOMED Code(s): 706401932 Time with Patient: Less than 30
--- NOTE | 2021-11-09 08:44 | ECHOF ---
Referral Reason:cardiomegaly MEASUREMENTS -------- HEIGHT: 154.9 cm WEIGHT: 50.8 kg BP: 142/79 IVSd: 1.1 cm (0.6 - 1.1) LVIDd: 3.4 cm (3.9 - 5.3) LVPWd: 1.0 cm (0.6 - 1.1) EDV(Teich): 48 ml IVSs: 1.5 cm LVIDs: 2.3 cm LVPWs: 1.5 cm %IVS Thck: 38 % ESV(Teich): 18 ml EF(Teich): 63 % %FS: 33 % SV(Teich): 31 ml LA Diam: 2.9 cm (2.7 - 3.8) RVIDd: 2.0 cm (< 3.3) Ao Diam: 3.0 cm (2.0 - 3.7) AV Cusp: 1.6 cm (1.5 - 2.6) EPSS: 0.4 cm MV DecT: 185 ms MV PHT: 43 ms MVA By PHT: 5.1 cm AV Vmax: 0.91 m/s AV maxP.34 mmHg TR Vmax: 4.10 m/s TR maxP.30 mmHg RAP: 5.00 mmHg RVSP: 72.30 mmHg MV EF SLOPE: 138.42 mm/s (70 - 150) MV EXCURSION: 21.71 mm (> 18.000) FINDINGS -------- Atrial fibrillation. This was a technically adequate study. The left ventricular size is normal. There is borderline concentric left ventricular hypertrophy. Overall left ventricular systolic function is low-normal with, an EF between 50 - 55 %. The right ventricle is normal in size and function. The left atrium is normal in size. The right atrium is normal in size. Interatrial and interventricular septum intact. There is mild aortic valve sclerosis. There is mild aortic regurgitation. Mild mitral annular calcification present. Mild mitral regurgitation is present. Moderate tricuspid regurgitation present. There is severe pulmonary hypertension. The right ventr icular systolic pressure, as measured by Doppler, is 72.30mmHg. Trace/mild (physiologic) pulmonic regurgitation. The aortic root size is normal. Normal inferior vena cava with normal inspiratory collapse consistent with estimated right atrial pre ssure of 5 mmHg. There is no pericardial effusion. CONCLUSIONS -------- 1. The left ventricular size is normal. 2. There is borderline concentric left ventricular hypertrophy. 3. Overall left ventricular systolic function is low-normal with, an EF between 50 - 55 %. 4. There is mild aortic valve sclerosis. 5. There is mild aortic regurgitation. 6. Mild mitral annular calcification present. 7. Mild mitral regurgitation is present. 8. Moderate tricuspid regurgitation present. 9. There is severe pulmonary hypertension. 10. The right ventricular systolic pressure, as measured by Doppler, is 72.30mmHg. 11. Trace/mild (physiologic) pulmonic regurgitation. 12. There is no pericardial effusion. [employer]: Nini Bhandari RDCS
[2021-11-09 10:56] LABS: INR 1.66 (0.90-1.11); Prothrombin Time 18.3 sec (9.9-11.9)
--- NOTE | 2021-11-09 11:37 | P.PN ---
Subjective Progress Note Date: 11/09/21 Principal diagnosis: left hip fracture Patient is a pleasant 86-year-old female, who presented to the emergency room after a fall. Patient states she is tripped and fell onto left knee and left hip while getting out of bed in the morning. Patient denies syncope, loss of consciousness, or head injury. Patient has a pertinent medical history of A. fib on Coumadin, asthma, hypertension, osteoarthritis, hypothyroidism, and aortic regurgitation. Patient has a surgical history of total left knee replacement and right hip IT nailing. Hip x-ray found displaced, angulated and proximally migrated transcervical left femoral neck fracture. Left knee x-ray found mild anterior soft tissue swelling and small knee joint effusion. Chest x-ray found chronic parenchymal changes and cardiomegaly without acute pulmonary process. EKG showed A. fib with a rate of 100. INR was 2.5. Patient will be admitted for pain control and to obtain clearance for surgical intervention. Cardiology was consulted for cardio clearance and management of anticoagulant. 11/09/2021 Patient was seen and evaluated at bedside. Patient reports feeling well, had just received pain medication. Patient denies chest pain, shortness of breath, dizziness, chills. Patient had bandage on left elbow from EMS, was removed. Patient has 2 skin tears to the left elbow, dressing and wound care was ordered. Patient is scheduled for left hip surgery today with Dr. Celestin. Patient is medically cleared from our standpoint for surgery. Objective - Vital Signs Vital signs: Vital Signs Temp 98.0 F 11/09/21 02:10 Pulse 78 11/09/21 02:10 Resp 17 11/09/21 02:10 BP 117/69 11/09/21 02:10 Pulse Ox 94 L 11/09/21 02:10 Intake & Output 11/08/21 11/09/21 11/09/21 18:59 06:59 18:59 Intake Total 100 Output Total 250 500 Balance -250 -400 Weight 50.802 kg 50.802 kg Intake: Oral 100 Output: Urine 250 500 Uretheral (Garza) 250 300 Other: Voiding Method Indwelling Catheter Indwelling Catheter # Bowel Movements 0 - Constitutional General appearance: Present: average body habitus, cooperative, no acute distress - EENT Eyes: Present: EOMI, PERRLA ENT: Present: hard of hearing, normal oropharynx - Neck Neck: Present: normal ROM - Respiratory Respiratory: bilateral: CTA - Cardiovascular Heart rate: 70 Rhythm: irregularly irregular Heart sounds: normal: S1, S2 - Peripheral pulses radial pulse Peripheral Pulses: bilateral: Normal dorsalis pedis Peripheral Pulses: bilateral: Normal - Gastrointestinal General gastrointestinal: Present: normal bowel sounds, soft - Integumentary Integumentary: Present: normal - Musculoskeletal Musculoskeletal Comment(s): on bed rest, upper extrem wnl Musculoskeletal: Present: generalized weakness - Psychiatric Psychiatric: Present: A&O x's 3, appropriate affect - Allied health notes Allied health notes reviewed: nursing - Labs CBC & Chem 7: 11/08/21 10:23 11/08/21 10:23 Labs: Abnormal Lab Results - Last 24 Hours (Table) 11/09/21 Range/Units 05:04 PT 18.3 H (9.9-11.9) sec INR 1.66 H (0.90-1.11) - Imaging and Cardiology CT scan - chest: report reviewed Assessment and Plan Assessment: Left femoral neck fracture Left knee soft tissue swelling and pain Atrial fib with controlled ventricular response, anticoagulant on hold for surgery Hypertension Osteoarthritis Hypothyroidism History of aortic regurgitation Plan: Orthopedic consult for left hip fracture, planned surgery today with Dr. Celestin Cardio consult for surgical clearance continue to control pain with ordered medications Coumadin on hold for surgery underwriting technician to assess afib rate PT and OT consult for rehab further recommendations to come based on patients clinical course Time with Patient: Greater than 30
[2021-11-09] MEDS ORDERED: METOPROLOL TARTRATE 25 MG TAB PO SCH (12:00)
[2021-11-09 15:34] LABS: African American GFR (CKD) 51 (>60 ml/min/1.73 sqM); Anion Gap 10 mmol/L; Blood Urea Nitrogen 38 mg/dL (7-17); Calcium 8.8 mg/dL (8.4-10.2); Carbon Dioxide 23 mmol/L (22-30); Chloride 98 mmol/L (98-107); Glucose 98 mg/dL (74-99); Non-African American GFR(CKD) 45 (>60 ml/min/1.73 sqM); Sodium 131 mmol/L (137-145)
[2021-11-09] MEDS ORDERED: HYDROcodone/APAP 10-325MG 1 EACH TAB PO PRN (15:39)
[2021-11-09] MEDS ORDERED: HYDROcodone/APAP 5-325MG 1 EACH TAB PO PRN (15:39)
[2021-11-09] MEDS ORDERED: MAGNESIUM HYDROXIDE 2,400 MG/10 ML CUP PO PRN (15:39)
[2021-11-09] MEDS ORDERED: DEXAMETHASONE SOD PHOSPHATE 4 MG/ML 1 ML VIAL IVP ONE (15:52)
[2021-11-09] MEDS ORDERED: TRANEXAMIC ACID IN NACL,ISO-OS 1,000 MG in SALINE 1 100ML.BAG IVPB PRN (15:56)
[2021-11-09] MEDS ORDERED: PROPOFOL 10 MG/ML 20 ML VIAL IV ONE (16:06)
[2021-11-09] MEDS ORDERED: NEOSTIGMINE 1 MG/ML 10 ML VIAL ONE (16:06)
[2021-11-09] MEDS ORDERED: PHENYLEPHRINE-0.9% NACL SYG 1,000 MCG/10 ML SYRINGE ONE (16:06)
[2021-11-09] MEDS ORDERED: GLYCOPYRROLATE 0.2 MG/ML 2 ML VIAL ONE (16:06)
[2021-11-09] MEDS ORDERED: ROCURONIUM 10 MG/ML (5 ML VIAL) IV ONE (16:06)
[2021-11-09] MEDS ORDERED: TRANEXAMIC ACID IN NACL,ISO-OS 1,000 MG/100 ML BAG ONE (16:06)
[2021-11-09] MEDS ORDERED: ESMOLOL 100 MG/10 ML VIAL ONE (16:06)
[2021-11-09] MEDS ORDERED: fentaNYL (PF) 50 MCG/ML 2 ML AMP ONE (16:06)
[2021-11-09] MEDS ORDERED: ceFAZolin 3,000 MG in SODIUM CHLORIDE 0.9% IRRIGATIO 3,000 ML IRRIGATION ONE (16:48)
[2021-11-09] MEDS: LABETALOL SYRINGE 5 MG/ML IVP ONE ×2 (18:06→18:22)
[2021-11-09] MEDS: ONDANSETRON 4 MG/2 ML VIAL IVP PRN (18:11)
--- NOTE | 2021-11-09 18:17 | OP ---
OPERATIVE REPORT DATE OF SURGERY: 11/09/2021 SURGEON: Caden Celestin MD. PUMPER BREWERY: Hema Cordon PA-C PREOPERATIVE DIAGNOSIS: Left hip displaced femoral neck fracture. POSTOPERATIVE DIAGNOSIS: Left hip displaced femoral neck fracture. PROCEDURE PERFORMED: Left hip hemiarthroplasty. ANESTHESIA: General endotracheal. ESTIMATED BLOOD LOSS: 100 mL. TOURNIQUET: None. DRAINS: None. COMPLICATIONS: None apparent. DISPOSITION: Post-Anesthesia Care Unit. INDICATIONS: Fadumo is a very pleasant 86-year-old female who fell onto her left hip yesterday. She presented to the [facility] Emergency Department. Workup including x-rays revealed a displaced femoral neck fracture. Due to her multiple medical comorbidities, she was admitted to the medical service and we were consulted for management of her displaced femoral neck fracture. Given that she is an independent ambulator, recommendation was for left hip hemiarthroplasty. I discussed with Fadumo and her daughter with regard to this. The risks of the procedure were discussed with them in detail. These risks include but are not limited to risk of infection, nerve damage, bleeding, pain, and a small risk of deep vein thrombosis which could lead to fatal pulmonary embolism. Further risks include periprosthetic fracture and instability in the hip. All of their questions were answered to their satisfaction. Appropriate informed consent was obtained. DESCRIPTION OF THE PROCEDURE: The patient was identified in the preoperative holding area. The surgical site was marked by both the patient and myself. She was given 2 grams of Ancef IV prophylactic purposes. She was then transported to the operative suite. She was placed supine on the operating room table. A general anesthetic was then administered and dosed per the anesthesia department without apparent complication. The patient was then placed into the right lateral decubitus position, well padded in preparation for surgery. Great care was taken to ensure that her legs were appropriately padded. A well-padded axillary roll was placed as well. The patient's left lower extremity was then prepped and draped in the usual sterile fashion. A standard surgical pause was undertaken to ensure that we were operating on the correct site and that appropriate preoperative antibiotics had been given. All staff in room were in agreement and we proceeded. The tip of the greater trochanter was identified. An approximate 10 to 12 cm incision centered over the tip of the greater trochanter and extending in line with the shaft of the femur was then marked with a surgical pen. The incision was then made with a 10 blade scalpel. Dissection was carried down sharply to the tensor fascia. Hemostasis was achieved with electrocautery. The tensor fascia was then incised in line with the incision. This gave me good exposure to the underlying trochanteric bursa. The trochanteric bursa was excised. I then found the raphae between the anterior one third and posterior two thirds of the gluteus medius. I then performed an anterolateral Hardinge type approach. The anterior one third of the gluteus medius, minimus and anterior capsule were then taken off in a sleeve and retracted anteriorly. I then proceeded to freshen up the femoral neck cut. The guide was then utilized and the femoral neck cut was then made with a reciprocating saw. I then removed the sioux femoral head utilizing a corkscrew extractor. The sioux femoral head was then extracted. It was then measured. It measured 45 mm. A 45 mm trial head was then placed onto the lollipop. It had a good suction type fit in the acetabulum. The acetabulum was also inspected. There were no loose bodies. The cartilage was in good condition. The leg was then flexed and externally rotated. This delivered the proximal femur out of the wound. The box sealing machine operator was then utilized to gain access to the proximal femur. The starting reamer was then utilized. I then reamed the proximal femur, starting with a size 7 reamer and incrementally increasing up to a size 9 reamer. Good chatter was encountered at this size. I then proceeded to broach. I started with a size 7 broach. I then broached the proximal femur approximately 15 degrees of anteversion incrementally up to a size 9 broach. The size 9 broach had a very good press-fit. I then placed a minus 3 neck and a 45 trial head. The hip was then reduced very carefully. The leg lengths were approximately equal. The hip was stable throughout a full range of motion. There was very minimal shuck. Utilizing the bone hook, the hip was then redislocated very carefully. I decided to go forward with a size 9 stem and a minus 3 neck with a 45 monopolar head. The wound was then thoroughly irrigated with sterile saline solution with antibiotic added. The field marketing representative open a collared size 9 Isis fracture stem. This was then impacted into the canal in approximately 15 degrees of anteversion. I had a very good press-fit. The orthopedic technician then assembled the minus 3 neck and the 45 monopolar head on the back table. The trunnion was then dried and the head and neck was then impacted onto a dry Antonio taper of the stem. The hip was then reduced. Again it was taken through a full range of motion. It was very stable throughout a full range of motion. The leg lengths were approximately equal. It was very stable and had very minimal shuck. At this point we proceeded with closure. The gluteus medius, minimus and anterior capsule were then repaired back to the greater trochanter utilizing a transosseous #5 Ethibond suture. The raphae between the anterior one third and posterior two thirds of the gluteus medius were then closed with #1 Vicryl interrupted suture. Again the wound was thoroughly irrigated with sterile saline with antibiotic added. The tensor fascia was then closed with a running #3 Quill suture. The subcutaneous tissue was closed with 2-0 Vicryl interrupted suture. The skin was closed with a running 3-0 Monocryl suture. Dermabond was then applied to the incision. A padded hip abduction pillow was then placed between her legs. General anesthetic was then reversed without complication. All sponge and needle counts were deemed correct prior to closure. The patient tolerated the procedure without apparent complication. She was transferred to the recovery room in stable condition. MMODL / IJN: [id number] /
[2021-11-09] MEDS: SODIUM CHLORIDE 0.9% 1,000 ML IV SCH (18:26)
--- NOTE | 2021-11-09 18:41 | XR ---
EXAMINATION TYPE: XR Hip Limited LT DATE OF EXAM: 11/09/2021 COMPARISON: Yesterday HISTORY: Hip pain TECHNIQUE: Single view FINDINGS: There is left hip prosthesis. Components are in anatomic position. IMPRESSION: No complicating process seen.
[2021-11-09] MEDS: SENNOSIDES-DOCUSATE SODIUM 1 EACH TAB PO SCH (22:36)
--- NOTE | 2021-11-09 22:51 | XR ---
EXAMINATION TYPE: XR ribs bilateral DATE OF EXAM: 11/09/2021 COMPARISON: 06/20/2015 HISTORY: Chest pain TECHNIQUE: 8 views FINDINGS: Heart is enlarged. There are multiple old right-sided healed rib fractures. No pleural effu danish or pneumothorax. No evidence of left-sided rib fracture. No acute fracture seen. IMPRESSION: Multiple old right-sided rib fractures. No acute fracture seen. No change compared to the old exam.
[2021-11-10] MEDS ORDERED: CALCIUM CARBONATE 500 MG CHEWABLE PO PRN (01:09)
[2021-11-10] MEDS: hydrALAZINE HCL 20 MG/ML 1 ML VIAL IVP PRN ×2 (01:31→18:20)
[2021-11-10] MEDS: HYDROmorphone 0.5 MG/0.5 ML SYRINGE IVP PRN ×2 (02:38→23:01)
[2021-11-10] MEDS: LEVOTHYROXINE 50 MCG TAB PO SCH (05:14)
[2021-11-10] MEDS: KETOROLAC 15 MG/ML 1 ML VIAL IVP SCH ×4 (05:14→21:35)
[2021-11-10] MEDS: HYDROcodone/APAP 5-325MG 1 EACH TAB PO PRN (05:18)
--- NOTE | 2021-11-10 08:46 | P.PN ---
Subjective Progress Note Date: 11/10/21 Principal diagnosis: Left hip fracture Patient is seen at bedside this morning. She is postop day #1 from left hip ramona-arthroplasty for hip fracture. She has pain at the surgical site as expected but denies any new complaints. She denies numbness, tingling or calf pain. Review of systems is negative for fever, chills, chest pain, shortness of breath or other Objective - Vital Signs Vital signs: Vital Signs Temp 97.9 F 11/10/21 07:28 Pulse 91 11/10/21 07:28 Resp 16 11/10/21 07:28 BP 156/86 11/10/21 07:28 Pulse Ox 92 L 11/10/21 07:28 Intake & Output 11/09/21 11/10/21 11/10/21 18:59 06:59 18:59 Intake Total 1201 Output Total 350 500 Balance 851 -500 Intake: IV 1201 Output: Urine 250 500 Estimated Blood Loss 100 Other: Voiding Method Indwelling Catheter Indwelling Catheter # Voids 1 - Exam Inspection reveals a benign surgical wound. There is no active bleeding or drainage. Neurovascular status is intact throughout the lower extremity with motor and sensation fully intact. Calf is soft and nontender. 2+ dorsalis pedis pulse and less than 2 second cap refill is present. - Constitutional General appearance: Present: no acute distress - Labs CBC & Chem 7: 11/08/21 10:23 11/09/21 14:52 Labs: Abnormal Lab Results - Last 24 Hours (Table) 11/09/21 11/09/21 Range/Units 05:04 14:52 PT 18.3 H (9.9-11.9) sec INR 1.66 H (0.90-1.11) Sodium 131 L (137-145) mmol/L BUN 38 H (7-17) mg/dL Creatinine 1.11 H (0.52-1.04) mg/dL Assessment and Plan (1) Hip fracture, left Narrative/Plan: She will continue with routine postop orthopedic protocol including pain management, wound care, PT, DVT prophylaxis and medical management. Expect that she will transfer to [facility] in next few days. Current Visit: Yes Status: Acute Priority: Medium Code(s): S72.002A - FRACTURE OF UNSP PART OF NECK OF LEFT FEMUR, INIT SNOMED Code(s): 866263686 Time with Patient: Less than 30
[2021-11-10 08:53] LABS: HCT 34.9 % (37.2-46.3); MCH 33.1 pg (27.0-32.0); MCHC 31.5 g/dL (32.0-37.0); MCV 105.1 fL (80.0-97.0); Mean Platelet Volume 10.8 fL (9.5-12.2); NRBC Per 100 WBC 0 /100 WBCS (0.0-0.0); Platelet Count 137 X 10*3/uL (140-440); RBC 3.32 X 10*6/uL (4.10-5.20); RDW 14.6 % (11.5-14.5); WBC 7.78 X 10*3/uL (4.50-10.00)
[2021-11-10] MEDS: CALCIUM CARBONATE 500 MG CHEWABLE PO SCH ×2 (09:25→09:53)
[2021-11-10] MEDS: MULTIVITAMINS, THERA 1 EACH TAB PO SCH (09:26)
[2021-11-10] MEDS: LOSARTAN-HCTZ 50-12.5 MG 1 EACH TAB PO SCH (09:26)
[2021-11-10] MEDS: LIDOCAINE 5% PATCH TOPICAL SCH (09:26)
[2021-11-10] MEDS: METOPROLOL TARTRATE 50 MG TAB PO SCH ×4 (09:26→21:35)
[2021-11-10] MEDS: SODIUM CHLORIDE 0.9% 1,000 ML IV SCH (09:27)
[2021-11-10] MEDS: ONDANSETRON 4 MG/2 ML VIAL IVP PRN ×2 (10:34→17:11)
--- NOTE | 2021-11-10 11:37 | P.PN ---
Subjective Progress Note Date: 11/10/21 Principal diagnosis: left hip fracture Patient is a pleasant 86-year-old female, who presented to the emergency room after a fall. Patient states she is tripped and fell onto left knee and left hip while getting out of bed in the morning. Patient denies syncope, loss of consciousness, or head injury. Patient has a pertinent medical history of A. fib on Coumadin, asthma, hypertension, osteoarthritis, hypothyroidism, and aortic regurgitation. Patient has a surgical history of total left knee replacement and right hip IT nailing. Hip x-ray found displaced, angulated and proximally migrated transcervical left femoral neck fracture. Left knee x-ray found mild anterior soft tissue swelling and small knee joint effusion. Chest x-ray found chronic parenchymal changes and cardiomegaly without acute pulmonary process. EKG showed A. fib with a rate of 100. INR was 2.5. Patient will be admitted for pain control and to obtain clearance for surgical intervention. Cardiology was consulted for cardio clearance and management of anticoagulant. 11/09/2021 Patient was seen and evaluated at bedside. Patient reports feeling well, had just received pain medication. Patient denies chest pain, shortness of breath, dizziness, chills. Patient had bandage on left elbow from EMS, was removed. Patient has 2 skin tears to the left elbow, dressing and wound care was ordered. Patient is scheduled for left hip surgery today with Dr. Celestin. Patient is medically cleared from our standpoint for surgery. 11/10/2021 Patient was seen and evaluated at bedside. Patient was sitting up in the chair in no acute distress. Patient reports moderate pain in her left hip, requesting pain medication, nurse was notified. Patient is postop day 1 from left hip ramona-arthroplasty with Dr. Celestin. Patient denies shortness of breath, chest pain, fever. Patient will go to ECF at discharge, will need to be restarted on anticoagulant for A. fib, will await cardio and surgical recommendations for that. Objective - Vital Signs Vital signs: Vital Signs Temp 97.9 F 11/10/21 07:28 Pulse 91 11/10/21 07:28 Resp 16 11/10/21 07:28 BP 156/86 11/10/21 07:28 Pulse Ox 92 L 11/10/21 07:28 Intake & Output 11/09/21 11/10/21 11/10/21 18:59 06:59 18:59 Intake Total 1201 Output Total 350 500 Balance 851 -500 Intake: IV 1201 Output: Urine 250 500 Estimated Blood Loss 100 Other: Voiding Method Indwelling Catheter Indwelling Catheter Indwelling Catheter # Voids 1 - Constitutional General appearance: Present: cooperative, mild distress - EENT Eyes: Present: EOMI, PERRLA ENT: Present: hard of hearing, normal oropharynx Ears: bilateral: normal - Neck Neck: Present: normal ROM - Respiratory Respiratory: bilateral: CTA - Cardiovascular Heart rate: 90 Rhythm: irregularly irregular Heart sounds: normal: S1, S2 - Gastrointestinal General gastrointestinal: Present: normal bowel sounds, soft - Integumentary Integumentary: Present: normal - Musculoskeletal Musculoskeletal: Present: generalized weakness - Psychiatric Psychiatric Comment(s): A&Ox2 Psychiatric: Present: appropriate affect - Allied health notes Allied health notes reviewed: nursing - Labs CBC & Chem 7: 11/10/21 06:03 11/09/21 14:52 Labs: Abnormal Lab Results - Last 24 Hours (Table) 11/09/21 11/10/21 Range/Units 14:52 06:03 RBC 3.32 L (4.10-5.20) X 10*6/uL Hgb 11.0 L (12.0-15.0) g/dL Hct 34.9 L (37.2-46.3) % MCV 105.1 H (80.0-97.0) fL MCH 33.1 H (27.0-32.0) pg MCHC 31.5 L (32.0-37.0) g/dL RDW 14.6 H (11.5-14.5) % Plt Count 137 L (140-440) X 10*3/uL Sodium 131 L (137-145) mmol/L BUN 38 H (7-17) mg/dL Creatinine 1.11 H (0.52-1.04) mg/dL Assessment and Plan Assessment: Left femoral neck fracture, status post left hemiarthroplasty Left knee soft tissue swelling and pain Atrial fib with controlled ventricular response, anticoagulant on hold for surgery Hypertension Osteoarthritis Hypothyroidism History of aortic regurgitation Plan: Postop day 1 from left hip ramona-arthroplasty for hip fracture Anticoagulant on hold, awaiting recommendations continue to control pain with ordered medications Coumadin on hold for surgery monitor tech to assess afib rate PT and OT consult for rehab Plan for inpatient rehab on discharge further recommendations to come based on patients clinical course Time with Patient: Greater than 30
[2021-11-10] MEDS ORDERED: bisacodyL 10 MG SUPP RECTAL STA (13:03)
[2021-11-10 13:08] LABS: Basophils # (A) 0.01 X 10*3/uL (0.00-0.10); Basophils % (A) 0.1 %; Eosinophils # (A) 0 X 10*3/uL (0.04-0.35); Eosinophils % (A) 0 %; Immature Grans, Automated 0.6 %; Lymphocytes # (A) 0.57 X 10*3/uL (0.90-5.00); Lymphocytes % (A) 7.3 %; Monocytes # (A) 0.61 X 10*3/uL (0.20-1.00); Monocytes % (A) 7.8 %; Neutrophils # (A) 6.54 X 10*3/uL (1.80-7.70); Neutrophils % (A) 84.2 %
[2021-11-10 13:09] LABS: Acanthocytes 2+
[2021-11-10 16:37] LABS: ALT 20 U/L (4-34); AST 65 U/L (14-36); African American GFR (CKD) 65 (>60 ml/min/1.73 sqM); Albumin 4.1 g/dL (3.5-5.0); Albumin/Globulin Ratio 1.2; Alkaline Phosphatase 69 U/L (38-126); Anion Gap 13 mmol/L; Blood Urea Nitrogen 37 mg/dL (7-17); Carbon Dioxide 20 mmol/L (22-30); Chloride 97 mmol/L (98-107); Globulin 3.5 g/dL; Glucose 150 mg/dL (74-99); Non-African American GFR(CKD) 56 (>60 ml/min/1.73 sqM); Potassium 3.4 mmol/L (3.5-5.1); Sodium 130 mmol/L (137-145); Total Bilirubin 0.7 mg/dL (0.2-1.3); Total Protein 7.6 g/dL (6.3-8.2)
[2021-11-10] MEDS ORDERED: Potassium Replacement Protocol 1 EACH MISC MISCELLANE PRN ×2 (16:47→17:32)
[2021-11-10] MEDS ORDERED: POTASSIUM CHLORIDE ER 20 MEQ TAB.ER PO SCH (18:00)
[2021-11-10] MEDS: METOCLOPRAMIDE 5 MG/ML 2 ML VIAL IVP PRN (18:01)
[2021-11-10] MEDS: POTASSIUM CHLORIDE 10 MEQ in WATER FOR INJECTION 1 100ML.BAG IVPB SCH ×4 (18:20→23:50)
[2021-11-10] MEDS: SENNOSIDES-DOCUSATE SODIUM 1 EACH TAB PO SCH (21:35)
[2021-11-11] MEDS: hydrALAZINE HCL 20 MG/ML 1 ML VIAL IVP PRN (01:23)
[2021-11-11] MEDS: SODIUM CHLORIDE 0.9% 1,000 ML IV SCH ×2 (01:26→23:16)
[2021-11-11] MEDS: LEVOTHYROXINE 50 MCG TAB PO SCH (05:28)
[2021-11-11] MEDS: KETOROLAC 15 MG/ML 1 ML VIAL IVP SCH (05:28)
[2021-11-11] MEDS: ONDANSETRON 4 MG/2 ML VIAL IVP PRN ×2 (05:34→15:25)
[2021-11-11] MEDS: LIDOCAINE 5% PATCH TOPICAL SCH (07:57)
[2021-11-11] MEDS: LOSARTAN-HCTZ 50-12.5 MG 1 EACH TAB PO SCH (07:58)
[2021-11-11] MEDS: MULTIVITAMINS, THERA 1 EACH TAB PO SCH (07:58)
[2021-11-11] MEDS: METOPROLOL TARTRATE 50 MG TAB PO SCH ×3 (07:58→19:58)
[2021-11-11] MEDS: CALCIUM CARBONATE 500 MG CHEWABLE PO SCH (07:58)
--- NOTE | 2021-11-11 08:59 | P.PN ---
Subjective Progress Note Date: 11/11/21 Principal diagnosis: Left hip fracture Patient is seen at bedside this morning. She is postop day #2 from left hip raomna-arthroplasty for hip fracture. She has pain at the surgical site as expected but denies any new complaints. She denies numbness, tingling or calf pain. Review of systems is negative for fever, chills, chest pain, shortness of breath or other Objective - Vital Signs Vital signs: Vital Signs Temp 98.5 F 11/11/21 08:00 Pulse 51 L 11/11/21 08:00 Resp 16 11/11/21 08:00 BP 151/92 11/11/21 08:00 Pulse Ox 91 L 11/11/21 08:00 Intake & Output 11/10/21 11/11/21 11/11/21 18:59 06:59 18:59 Output Total 750 Balance -750 Output: Urine 750 Other: Voiding Method Indwelling Catheter - Exam Inspection reveals a benign surgical wound. There is no active bleeding or drainage. Neurovascular status is intact throughout the lower extremity with motor and sensation fully intact. Calf is soft and nontender. 2+ dorsalis pedis pulse and less than 2 second cap refill is present. - Constitutional General appearance: Present: no acute distress - Labs CBC & Chem 7: 11/10/21 06:03 11/10/21 15:40 Labs: Abnormal Lab Results - Last 24 Hours (Table) 11/10/21 11/10/21 Range/Units 06:03 15:40 Plt Count Comment DECREASED A Immature Gran # 0.05 H (0.00-0.04) X 10*3/uL Lymphocytes # 0.57 L (0.90-5.00) X 10*3/uL Eosinophils # 0 L (0.04-0.35) X 10*3/uL Sodium 130 L (137-145) mmol/L Potassium 3.4 L (3.5-5.1) mmol/L Chloride 97 L (98-107) mmol/L Carbon Dioxide 20 L (22-30) mmol/L BUN 37 H (7-17) mg/dL Glucose 150 H (74-99) mg/dL AST 65 H (14-36) U/L Assessment and Plan (1) Hip fracture, left Narrative/Plan: She will continue with routine postop orthopedic protocol including pain management, wound care, PT, DVT prophylaxis and medical management. She may transfer to [facility] from orthopedic standpoint when okay with IM Current Visit: Yes Status: Acute Priority: Medium Code(s): S72.002A - FRACTURE OF UNSP PART OF NECK OF LEFT FEMUR, INIT SNOMED Code(s): 518853739 Time with Patient: Less than 30
[2021-11-11 09:25] LABS: African American GFR (CKD) 66.2 (60.0-200.0); Albumin 4.1 g/dL (3.8-4.9); Albumin/Globulin Ratio 1.37 (1.60-3.17); BUN/Creat Ratio 36.33 Ratio (12.00-20.00); Blood Urea Nitrogen 32.7 mg/dL (9.0-27.0); Calcium 9.4 mg/dL (8.7-10.3); Magnesium 2.2 mg/dL (1.5-2.4); Non-African American GFR(CKD) 57.1 (60.0-200.0); Potassium 4.3 mmol/L (3.5-5.5); Total Bilirubin 0.5 mg/dL (0.30-1.20); Total Protein 7.1 g/dL (6.2-8.2)
[2021-11-11 10:06] LABS: INR 1.85 (0.90-1.11); Prothrombin Time 20.3 sec (9.9-11.9)
--- NOTE | 2021-11-11 11:00 | P.DS ---
Providers Date of admission: 11/08/21 09:49 Expected date of discharge: 11/11/21 Attending physician: Ander Wolff Consults: 11/08/21 09:49 Consult Physician Urgent Consulting Provider: Wale Brand Consult Reason/Comments: hip fracture Do you want consulting provider notified?: Yes 11/08/21 10:43 Consult Physician Routine Consulting Provider: Evaristo Hsieh Consult Reason/Comments: cardio clearance for sugery Do you want consulting provider notified?: Yes Primary care physician: Ander Wolff [facility] Hospital Course: Patient is a pleasant 86-year-old female, who presented to the emergency room after a fall. Patient states she is tripped and fell onto left knee and left hip while getting out of bed in the morning. Patient denies syncope, loss of consciousness, or head injury. Patient has a pertinent medical history of A. fib on Coumadin, asthma, hypertension, osteoarthritis, hypothyroidism, and aortic regurgitation. Patient has a surgical history of total left knee replacement and right hip IT nailing. Hip x-ray found displaced, angulated and proximally migrated transcervical left femoral neck fracture. Left knee x-ray found mild anterior soft tissue swelling and small knee joint effusion. Chest x-ray found chronic parenchymal changes and cardiomegaly without acute pulmonary process. EKG showed A. fib with a rate of 100. INR was 2.5. Patient will be admitted for pain control and to obtain clearance for surgical intervention. Cardiology was consulted for cardio clearance and management of anticoagulant. 11/09/2021 Patient was seen and evaluated at bedside. Patient reports feeling well, had just received pain medication. Patient denies chest pain, shortness of breath, dizziness, chills. Patient had bandage on left elbow from EMS, was removed. Patient has 2 skin tears to the left elbow, dressing and wound care was ordered. Patient is scheduled for left hip surgery today with Dr. Celestin. Patient is medically cleared from our standpoint for surgery. 11/10/2021 Patient was seen and evaluated at bedside. Patient was sitting up in the chair in no acute distress. Patient reports moderate pain in her left hip, requesting pain medication, nurse was notified. Patient is postop day 1 from left hip ramona-arthroplasty with Dr. Celestin. Patient denies shortness of breath, chest pain, fever. Patient will go to ECF at discharge, will need to be restarted on anticoagulant for A. fib, will await cardio and surgical recommendations for that. 11/11/2021 Patient was seen and assessed at bedside. Patient sitting up in the chair in no acute distress. Patient reports improvement of pain in left hip and improvement of nausea. Patient was able to eat today. Patient is postop day 2, will restart Coumadin per surgical team. Patient denies shortness of breath, chest pain, fever. Patient is stable for discharge to [facility] today for rehab. Assessment: Left femoral neck fracture, status post left hemiarthroplasty Left knee soft tissue swelling and pain Atrial fib with controlled ventricular response, anticoagulant on hold for surgery Hypertension Osteoarthritis Hypothyroidism History of aortic regurgitation Health Concerns: Multiple comorbidities Pertinent Studies: Hip x-rayDisplaced, angulated and proximally migrated transcervical left femoral neck fracture Knee x-raymild anterior soft tissue swelling and small knee joint effusion Chest x-raychronic parenchymal changes and cardiomegaly without pulmonary process Echocardiogram - borderline concentric left ventricular hypertrophy, EF between 50-55% Chest CTno suspicious new pulmonary nodules or masses, cardiomegaly with mild right-sided interstitial edema Rib x-raymultiple old right-sided rib fractures, no acute fracture Procedures: 11/09/2021 hemiarthroplasty left hip Patient Condition at Discharge: Fair Plan - Discharge Summary Discharge Rx Participant: No New Discharge Prescriptions: New Docusate [Colace] 100 mg PO BID #60 capsule traMADol HCL [Ultram] 50 mg PO Q4HR PRN #42 tab PRN Reason: Pain Acetaminophen Tab [Tylenol] 650 mg PO Q4HR PRN tab PRN Reason: Fever and/ or mild Pain Continue Levothyroxine Sodium [Synthroid] 50 mcg PO DAILY Metoprolol Tartrate [Lopressor] 50 mg PO BID Warfarin [Coumadin] 5 mg PO HS Multivitamins, Thera [Multivitamin (formulary)] 1 tab PO DAILY Losartan/Hydrochlorothiazide [Losartan-Hctz 100-25 mg Tab] 1 tab PO DAILY Lidocaine 5% Patch [Lidoderm 5% Patch] 1 patch TOPICAL Q24H patch Metoprolol Tartrate 25 mg PO DAILY@1200 Calcium Carbonate [Calcium] 600 mg PO DAILY Discharge Medication List Levothyroxine Sodium [Synthroid] 50 mcg PO DAILY 03/06/14 [History] Metoprolol Tartrate [Lopressor] 50 mg PO BID 06/17/16 [History] Losartan/Hydrochlorothiazide [Losartan-Hctz 100-25 mg Tab] 1 tab PO DAILY 06/19/16 [History] Multivitamins, Thera [Multivitamin (formulary)] 1 tab PO DAILY 06/19/16 [History] Warfarin [Coumadin] 5 mg PO HS 06/19/16 [History] Lidocaine 5% Patch [Lidoderm 5% Patch] 1 patch TOPICAL Q24H patch 06/27/16 [Rx] Calcium Carbonate [Calcium] 600 mg PO DAILY 11/08/21 [History] Metoprolol Tartrate 25 mg PO DAILY@1200 11/08/21 [History] Acetaminophen Tab [Tylenol] 650 mg PO Q4HR PRN tab 11/11/21 [Rx] Docusate [Colace] 100 mg PO BID #60 capsule 11/11/21 [Rx] traMADol HCL [Ultram] 50 mg PO Q4HR PRN #42 tab 11/11/21 [Rx] Follow up Appointment(s)/Referral(s): Ander Wolff MD [Primary Care Provider] - 1-2 days Caden Celestin MD [STAFF PHYSICIAN] - 10 Days Activity/Diet/Wound Care/Special Instructions: Weight bear as tolerated with walker at all times May shower after 3 days if no bleeding Keep wound clean and dry Take meds as directed F/U with Dr. Celestin in office Discharge Disposition: TRANSFER TO SNF/ECF
[2021-11-11] MEDS: METOCLOPRAMIDE 5 MG/ML 2 ML VIAL IVP PRN (11:09)
--- NOTE | 2021-11-11 12:45 | P.PN ---
Subjective Patient was seen preoperatively prior to orthopedic surgery She underwent left hip hemiarthroplasty successfully She is resting comfortably in a chair No chest discomfort no undue shortness of breath Her lungs are clear no rhonchi no crackles Heart sounds are systems to normal Blood pressure 138/81 mmHg 140 30 102 mmHg Afebrile Pulse rate in the 50s From a car extent and the patient may go home today Home blood pressure monitoring and as an outpatient consideration for switching to valsartan hydrochlorothiazide if her blood pressure remains elevated Objective - Vital Signs Vital signs: Vital Signs Temp 98.5 F 11/11/21 08:00 Pulse 51 L 11/11/21 08:00 Resp 16 11/11/21 08:00 BP 151/92 11/11/21 08:00 Pulse Ox 91 L 11/11/21 08:00 Intake & Output 11/10/21 11/11/21 11/11/21 18:59 06:59 18:59 Output Total 750 Balance -750 Output: Urine 750 Other: Voiding Method Indwelling Catheter - Labs CBC & Chem 7: 11/10/21 06:03 11/11/21 05:27 Labs: Abnormal Lab Results - Last 24 Hours (Table) 11/10/21 11/10/21 11/11/21 Range/Units 06:03 15:40 05:27 Plt Count Comment DECREASED A Immature Gran # 0.05 H (0.00-0.04) X 10*3/uL Lymphocytes # 0.57 L (0.90-5.00) X 10*3/uL Eosinophils # 0 L (0.04-0.35) X 10*3/uL PT 20.3 H (9.9-11.9) sec INR 1.85 H (0.90-1.11) Sodium 130 L (137-145) mmol/L Potassium 3.4 L (3.5-5.1) mmol/L Chloride 97 L (98-107) mmol/L Carbon Dioxide 20 L (22-30) mmol/L BUN 37 H (7-17) mg/dL Est GFR (CKD-EPI)NonAf (60.0-200.0) BUN/Creatinine Ratio (12.00-20.00) Ratio Glucose 150 H (74-99) mg/dL AST 65 H (14-36) U/L Albumin/Globulin Ratio (1.60-3.17) g/dL 11/11/21 Range/Units 05:27 Plt Count Comment Immature Gran # (0.00-0.04) X 10*3/uL Lymphocytes # (0.90-5.00) X 10*3/uL Eosinophils # (0.04-0.35) X 10*3/uL PT (9.9-11.9) sec INR (0.90-1.11) Sodium 131 L (137-145) mmol/L Potassium (3.5-5.1) mmol/L Chloride (98-107) mmol/L Carbon Dioxide (22-30) mmol/L BUN 32.7 H (7-17) mg/dL Est GFR (CKD-EPI)NonAf 57.1 L (60.0-200.0) BUN/Creatinine Ratio 36.33 H (12.00-20.00) Ratio Glucose (74-99) mg/dL AST 52 H (14-36) U/L Albumin/Globulin Ratio 1.37 L (1.60-3.17) g/dL
[2021-11-11] MEDS: traMADol 50 MG TAB PO PRN (15:32)
[2021-11-11] MEDS ORDERED: WARFARIN 5 MG TAB PO ONE (18:00)
[2021-11-11] MEDS: SENNOSIDES-DOCUSATE SODIUM 1 EACH TAB PO SCH (19:57)
[2021-11-12] MEDS: hydrALAZINE HCL 20 MG/ML 1 ML VIAL IVP PRN (04:28)
[2021-11-12] MEDS: traMADol 50 MG TAB PO PRN ×2 (04:29→12:38)
[2021-11-12] MEDS: LEVOTHYROXINE 50 MCG TAB PO SCH (04:29)
[2021-11-12] MEDS: ONDANSETRON 4 MG/2 ML VIAL IVP PRN (04:29)
[2021-11-12] MEDS: LOSARTAN-HCTZ 50-12.5 MG 1 EACH TAB PO SCH (08:30)
[2021-11-12] MEDS: METOPROLOL TARTRATE 50 MG TAB PO SCH (08:31)
[2021-11-12] MEDS: LIDOCAINE 5% PATCH TOPICAL SCH (08:32)
[2021-11-12] MEDS: MULTIVITAMINS, THERA 1 EACH TAB PO SCH (08:32)
[2021-11-12] MEDS: CALCIUM CARBONATE 500 MG CHEWABLE PO SCH (08:32)
--- NOTE | 2021-11-12 10:18 | P.PN ---
Subjective Progress Note Date: 11/12/21 This is a 86-year-old female who is status post left hip hemiarthroplasty. Patient is seen and evaluated at bedside today. Patient states that she is able to walk to the bathroom and back and her pain is under control. Patient denies any new complaints today. Objective - Vital Signs Vital signs: Vital Signs Temp 98.3 F 11/12/21 08:00 Pulse 101 H 11/12/21 08:00 Resp 18 11/12/21 08:00 BP 93/57 11/12/21 08:00 Pulse Ox 96 11/12/21 08:00 Intake & Output 11/11/21 11/12/21 11/12/21 18:59 06:59 18:59 Intake Total 720 360 360 Output Total 800 Balance 720 -440 360 Intake: Oral 720 360 360 Output: Urine 800 Other: Voiding Method Diaper Incontinent # Voids 2 - Exam Vital signs are stable. Patient is in no acute distress and is alert and oriented 3. Calf is soft and nontender to palpation. Dressing is clean, dry, and intact. Patient has full foot and ankle motion without pain or difficulty. Sensation intact. Neurovascular status and circulatory status are intact. - Labs CBC & Chem 7: 11/10/21 06:03 11/11/21 05:27 Assessment and Plan Assessment: Status post left hip hemiarthroplasty. (1) Fall Current Visit: Yes Status: Acute Code(s): W19.XXXA - UNSPECIFIED FALL, INITIAL ENCOUNTER SNOMED Code(s): 7735601 (2) Hip fracture, left Current Visit: Yes Status: Acute Priority: Medium Code(s): S72.002A - FRACTURE OF UNSP PART OF NECK OF LEFT FEMUR, INIT SNOMED Code(s): 704893125 Plan: Continue routine postop care and pain control. Continue anticoagulation. Weightbearing as tolerated with a walker. Anticipate discharge to rehab when cleared medically.
[2021-11-12 12:46] LABS: INR 1.7 (<1.2)
[2021-11-12 15:10] VITALS: BP 91/58; PULSE 97; RESP 16; TEMP 97.4
[2021-11-12] MEDS ORDERED: WARFARIN 5 MG TAB PO ONE (18:00)
--- NOTE | 2021-11-13 14:44 | P.DS ---
Providers Date of admission: 11/08/21 09:49 Expected date of discharge: 11/12/21 Attending physician: Ander Wolff Consults: 11/08/21 09:49 Consult Physician Urgent Consulting Provider: Wale Brand Consult Reason/Comments: hip fracture Do you want consulting provider notified?: Yes 11/08/21 10:43 Consult Physician Routine Consulting Provider: Evaristo Hsieh Consult Reason/Comments: cardio clearance for sugery Do you want consulting provider notified?: Yes Primary care physician: Ander Wolff Hospital Course: 86-year-old female, who presented to the emergency room after a fall. Patient states she is tripped and fell onto left knee and left hip while getting out of bed in the morning. Patient denies syncope, loss of consciousness, or head injury. Patient has a pertinent medical history of A. fib on Coumadin, asthma, hypertension, osteoarthritis, hypothyroidism, and aortic regurgitation. Patient has a surgical history of total left knee replacement and right hip IT nailing. Hip x-ray found displaced, angulated and proximally migrated transcervical left femoral neck fracture. Left knee x-ray found mild anterior soft tissue swelling and small knee joint effusion. Chest x-ray found chronic parenchymal changes and cardiomegaly without acute pulmonary process. EKG showed A. fib with a rate of 100. INR was 2.5. Patient will be admitted for pain control and to obtain clearance for surgical intervention. Cardiology was consulted for cardio clearance and management of anticoagulant. 11/09/2021 Patient was seen and evaluated at bedside. Patient reports feeling well, had just received pain medication. Patient denies chest pain, shortness of breath, dizziness, chills. Patient had bandage on left elbow from EMS, was removed. Patient has 2 skin tears to the left elbow, dressing and wound care was ordered. Patient is scheduled for left hip surgery today with Dr. Celestin. Patient is medically cleared from our standpoint for surgery. 11/10/2021 Patient was seen and evaluated at bedside. Patient was sitting up in the chair in no acute distress. Patient reports moderate pain in her left hip, requesting pain medication, nurse was notified. Patient is postop day 1 from left hip ramona-arthroplasty with Dr. Celestin. Patient denies shortness of breath, chest pain, fever. Patient will go to ECF at discharge, will need to be restarted on anticoagulant for A. fib, will await cardio and surgical recommendations for that. 11/11/2021 Patient was seen and assessed at bedside. Patient sitting up in the chair in no acute distress. Patient reports improvement of pain in left hip and improvement of nausea. Patient was able to eat today. Patient is postop day 2, will restart Coumadin per surgical team. Patient denies shortness of breath, chest pain, fever. Patient is stable for discharge to [facility] today for rehab. 11/12/2021; authorization for skilled rehab received from patient's insurance; case management on board; patient will be transferred to skilled rehab Assessment: Left femoral neck fracture, status post left hemiarthroplasty Left knee soft tissue swelling and pain Atrial fib with controlled ventricular response, anticoagulant on hold for surgery Hypertension Osteoarthritis Hypothyroidism History of aortic regurgitation Health Concerns: Multiple comorbidities Patient Condition at Discharge: Fair Plan - Discharge Summary Discharge Rx Participant: No New Discharge Prescriptions: New Docusate [Colace] 100 mg PO BID #60 capsule traMADol HCL [Ultram] 50 mg PO Q4HR PRN #42 tab PRN Reason: Pain Acetaminophen Tab [Tylenol] 650 mg PO Q4HR PRN tab PRN Reason: Fever and/ or mild Pain Continue Levothyroxine Sodium [Synthroid] 50 mcg PO DAILY Metoprolol Tartrate [Lopressor] 50 mg PO BID Warfarin [Coumadin] 5 mg PO HS Multivitamins, Thera [Multivitamin (formulary)] 1 tab PO DAILY Losartan/Hydrochlorothiazide [Losartan-Hctz 100-25 mg Tab] 1 tab PO DAILY Lidocaine 5% Patch [Lidoderm 5% Patch] 1 patch TOPICAL Q24H patch Metoprolol Tartrate 25 mg PO DAILY@1200 Calcium Carbonate [Calcium] 600 mg PO DAILY Discharge Medication List Levothyroxine Sodium [Synthroid] 50 mcg PO DAILY 03/06/14 [History] Metoprolol Tartrate [Lopressor] 50 mg PO BID 06/17/16 [History] Losartan/Hydrochlorothiazide [Losartan-Hctz 100-25 mg Tab] 1 tab PO DAILY 06/19/16 [History] Multivitamins, Thera [Multivitamin (formulary)] 1 tab PO DAILY 06/19/16 [History] Warfarin [Coumadin] 5 mg PO HS 06/19/16 [History] Lidocaine 5% Patch [Lidoderm 5% Patch] 1 patch TOPICAL Q24H patch 06/27/16 [Rx] Calcium Carbonate [Calcium] 600 mg PO DAILY 11/08/21 [History] Metoprolol Tartrate 25 mg PO DAILY@1200 11/08/21 [History] Acetaminophen Tab [Tylenol] 650 mg PO Q4HR PRN tab 11/11/21 [Rx] Docusate [Colace] 100 mg PO BID #60 capsule 11/11/21 [Rx] traMADol HCL [Ultram] 50 mg PO Q4HR PRN #42 tab 11/11/21 [Rx] Follow up Appointment(s)/Referral(s): Ander Wolff MD [Primary Care Provider] - 11/15/21 12:40 pm Caden Celestin MD [STAFF PHYSICIAN] - 11/21/21 2:45 pm (Patient MUST bring Photo ID and Insurance Arrive at 2:45pm to fill paperwork out ) Activity/Diet/Wound Care/Special Instructions: Weight bear as tolerated with walker at all times May shower after 3 days if no bleeding Keep wound clean and dry Take meds as directed F/U with Dr. Celestin in office Discharge Disposition: TRANSFER TO SNF/ECF
== END 2021-11-12 16:16 | DRG 522 ==
LOC: EC 07:44 → 4SSUR 09:49 → UNDODISIN 11-11 15:22
PROVIDERS: ADMIT Family Medicine; ATTEND Family Medicine
PROC: 0SRS0JZ Replacement of Left Hip Joint, Femoral Surface with Synthetic Substitute, Open Approach (ICD-10-PCS; principal; 2021-11-09 08:30)
DX: S72.032A Displaced midcervical fracture of left femur, initial encounter for closed fracture (principal); I48.19 Other persistent atrial fibrillation; W01.0XXA Fall on same level from slipping, tripping and stumbling without subsequent striking against object, initial encounter; Y92.009 Unspecified place in unspecified non-institutional (private) residence as the place of occurrence of the external cause; E03.9 Hypothyroidism, unspecified; E78.5 Hyperlipidemia, unspecified; I10 Essential (primary) hypertension; I35.1 Nonrheumatic aortic (valve) insufficiency; J45.909 Unspecified asthma, uncomplicated; M19.90 Unspecified osteoarthritis, unspecified site; Z79.01 Long term (current) use of anticoagulants; Z79.1 Long term (current) use of non-steroidal anti-inflammatories (NSAID); Z79.51 Long term (current) use of inhaled steroids; Z79.890 Hormone replacement therapy; Z79.899 Other long term (current) drug therapy; Z80.7 Family history of other malignant neoplasms of lymphoid, hematopoietic and related tissues; Z80.8 Family history of malignant neoplasm of other organs or systems; Z90.710 Acquired absence of both cervix and uterus; Z96.652 Presence of left artificial knee joint
CPT/HCPCS: 71045; 71110; 71260; 73501; 73502; 80048; 80053; 81001; 83735; 84484; 85025; 85610; 85730; 86850; 86900; 86901; 88305; 88311; 93005; 93306; 96361; 96374; 96375; 96376; 99285

== ENCOUNTER 2022-06-03 09:52 | Emergency (ER) | payer MEDICARE ==
[2022-06-03] MEDS ORDERED: DIPHENOX-ATROP 2.5-0.025 MG 1 EACH TAB PO STA (11:03)
[2022-06-03 11:15] LABS: Basophils % (A) 0 %; Eosinophils % (A) 0 %; HCT 36.5 % (34.0-46.0); HGB 12.1 gm/dL (11.4-16.0); Lymphocytes # (A) 0.8 k/uL (1.0-4.8); Lymphocytes % (A) 7 %; MCH 32.1 pg (25.0-35.0); MCHC 33.1 g/dL (31.0-37.0); MCV 96.8 fL (80.0-100.0); Mean Platelet Volume 7.9; Monocytes # (A) 0.7 k/uL (0-1.0); Monocytes % (A) 6 %; Neutrophils # (A) 9.5 k/uL (1.3-7.7); Neutrophils % (A) 85 %; Platelet Count 217 k/uL (150-450); RBC 3.77 m/uL (3.80-5.40); RDW 15.2 % (11.5-15.5); WBC 11.1 k/uL (3.8-10.6)
--- NOTE | 2022-06-03 11:25 | ED ---
General Adult HPI - General Chief complaint: Weakness Stated complaint: weakness, abd pain Time Seen by Provider: 06/03/22 10:05 Source: patient, RN notes reviewed, old records reviewed Mode of arrival: wheelchair Limitations: no limitations - History of Present Illness Initial comments: This is a 87-year-old female presents emergency Department complaining that she's had diarrhea a little bit for one week since she started her antibiotics. Patient states as of this morning she states that her diarrhea is been constant and she can't seem to get it to stop. Patient states she has a history of C. diff twice before. Patient denies any fever chills. Patient states she has some abdominal cramping but no abdominal pain. Patient denies any back pain. Patient denies any dysuria hematuria urinary frequency. - Related Data Home Medications Medication Instructions Recorded Confirmed Levothyroxine Sodium [Synthroid] 50 mcg PO DAILY 03/06/14 11/08/21 Metoprolol Tartrate [Lopressor] 50 mg PO BID 06/17/16 11/08/21 Losartan/Hydrochlorothiazide 1 tab PO DAILY 06/19/16 11/08/21 [Losartan-Hctz 100-25 mg Tab] Multivitamins, Thera [Multivitamin 1 tab PO DAILY 06/19/16 11/08/21 (formulary)] Warfarin [Coumadin] 5 mg PO HS 06/19/16 11/08/21 Calcium Carbonate [Calcium] 600 mg PO DAILY 11/08/21 11/08/21 Metoprolol Tartrate 25 mg PO DAILY@1200 11/08/21 11/08/21 Previous Rx's Medication Instructions Recorded Lidocaine 5% Patch [Lidoderm 5% 1 patch TOPICAL Q24H patch 06/27/16 Patch] Acetaminophen Tab [Tylenol] 650 mg PO Q4HR PRN tab 11/11/21 Docusate [Colace] 100 mg PO BID #60 capsule 11/11/21 traMADol HCL [Ultram] 50 mg PO Q4HR PRN #42 tab 11/11/21 Allergies Allergy/AdvReac Type Severity Reaction Status Date / Time No Known Allergies Allergy Verified 06/03/22 10:03 Review of Systems ROS Statement: Those systems with pertinent positive or pertinent negative responses have been documented in the HPI. ROS Other: All systems not noted in ROS Statement are negative. Past Medical History Past Medical History: Atrial Fibrillation, Asthma, Hypertension, Osteoarthritis (OA), Thyroid Disorder Additional Past Medical History / Comment(s): Aortic regurgitation, hypothyroid, DJD History of Any Multi-Drug Resistant Organisms: C-DIFF Date of last positivie culture/infection: 11/16/2014 MDRO Source:: stool Past Surgical History: Hysterectomy, Joint Replacement, Orthopedic Surgery Additional Past Surgical History / Comment(s): BILATERAL CATARACTS (2013) TOTAL LEFT KNEE REPLACEMENT, R hip IT nailing, colonoscopy, bronchoscopy Past Anesthesia/Blood Transfusion Reactions: No Reported Reaction Past Psychological History: No Psychological Hx Reported Smoking Status: Never smoker Past Alcohol Use History: Rare Past Drug Use History: None Reported - Past Family History Father Family Medical History: Cancer Additional Family Medical History / Comment(s): unsure. "Possibly bone cancer," per patient. Sister(s) Family Medical History: Cancer Additional Family Medical History / Comment(s): Lymphoma Brother(s) Family Medical History: Cancer Additional Family Medical History / Comment(s): Melanoma General Exam - General Exam Comments Initial Comments: GENERAL: Patient is well-developed and well-nourished. Patient is nontoxic and well- hydrated and is in mild distress. ENT: Neck is soft and supple. No significant lymphadenopathy is noted. Oropharynx is clear. Moist mucous membranes. Neck has full range of motion without eliciting any pain. EYES: The sclera were anicteric and conjunctiva were pink and moist. Extraocular movements were intact and pupils were equal round and reactive to light. Eyelids were unremarkable. PULMONARY: Unlabored respirations. Good breath sounds bilaterally. No audible rales rhonchi or wheezing was noted. CARDIOVASCULAR: There is a regular rate and rhythm without any murmurs gallops or rubs. ABDOMEN: Soft and nontender with normal bowel sounds. SKIN: Skin is clear with no lesions or rashes and otherwise unremarkable. NEUROLOGIC: Patient is alert and oriented x3. Cranial nerves II through XII are grossly intact. Motor and sensory are also intact. Normal speech, volume and content. Symmetrical smile. MUSCULOSKELETAL: Normal extremities with adequate strength and full range of motion. No lower extremity swelling or edema. No calf tenderness. LYMPHATICS: No significant lymphadenopathy is noted PSYCHIATRIC: Normal psychiatric evaluation. Limitations: no limitations Course Vital Signs 06/03/22 10:03 Temperature 97.7 F Pulse Rate 102 H Respiratory 16 Rate Blood Pressure 138/87 O2 Sat by Pulse 96 Oximetry Medical Decision Making - Medical Decision Making C. diff was negative. Patient had no further diarrhea in the emergency department. - Lab Data Result diagrams: 06/03/22 11:05 06/03/22 11:05 Lab Results 06/03/22 06/03/22 06/03/22 Range/Units 10:38 11:05 11:05 WBC 11.1 H (3.8-10.6) k/uL RBC 3.77 L (3.80-5.40) m/uL Hgb 12.1 (11.4-16.0) gm/dL Hct 36.5 (34.0-46.0) % MCV 96.8 (80.0-100.0) fL MCH 32.1 (25.0-35.0) pg MCHC 33.1 (31.0-37.0) g/dL RDW 15.2 (11.5-15.5) % Plt Count 217 (150-450) k/uL MPV 7.9 Neutrophils % 85 % Lymphocytes % 7 % Monocytes % 6 % Eosinophils % 0 % Basophils % 0 % Neutrophils # 9.5 H (1.3-7.7) k/uL Lymphocytes # 0.8 L (1.0-4.8) k/uL Monocytes # 0.7 (0-1.0) k/uL Eosinophils # 0.0 (0-0.7) k/uL Basophils # 0.0 (0-0.2) k/uL Sodium 133 L (137-145) mmol/L Potassium 4.0 (3.5-5.1) mmol/L Chloride 95 L (98-107) mmol/L Carbon Dioxide 25 (22-30) mmol/L Anion Gap 13 mmol/L BUN 27 H (7-17) mg/dL Creatinine 0.93 (0.52-1.04) mg/dL Est GFR (CKD-EPI)AfAm 64 (>60 ml/min/1.73 sqM) Est GFR (CKD-EPI)NonAf 55 (>60 ml/min/1.73 sqM) Glucose 105 H (74-99) mg/dL Calcium 9.7 (8.4-10.2) mg/dL Magnesium 1.9 (1.6-2.3) mg/dL Total Bilirubin 0.7 (0.2-1.3) mg/dL AST 41 H (14-36) U/L ALT 19 (4-34) U/L Alkaline Phosphatase 81 (38-126) U/L Total Protein 8.1 (6.3-8.2) g/dL Albumin 4.5 (3.5-5.0) g/dL Urine Color Urine Appearance (Clear) Urine pH (5.0-8.0) Ur Specific Harris (1.001-1.035) Urine Protein (Negative) Urine Glucose (UA) (Negative) Urine Ketones (Negative) Urine Blood (Negative) Urine Nitrite (Negative) Urine Bilirubin (Negative) Urine Urobilinogen (<2.0) mg/dL Ur Leukocyte Esterase (Negative) C. difficile (EIA) Intrp Negative (Negative) 06/03/22 Range/Units 12:00 WBC (3.8-10.6) k/uL RBC (3.80-5.40) m/uL Hgb (11.4-16.0) gm/dL Hct (34.0-46.0) % MCV (80.0-100.0) fL MCH (25.0-35.0) pg MCHC (31.0-37.0) g/dL RDW (11.5-15.5) % Plt Count (150-450) k/uL MPV Neutrophils % % Lymphocytes % % Monocytes % % Eosinophils % % Basophils % % Neutrophils # (1.3-7.7) k/uL Lymphocytes # (1.0-4.8) k/uL Monocytes # (0-1.0) k/uL Eosinophils # (0-0.7) k/uL Basophils # (0-0.2) k/uL Sodium (137-145) mmol/L Potassium (3.5-5.1) mmol/L Chloride (98-107) mmol/L Carbon Dioxide (22-30) mmol/L Anion Gap mmol/L BUN (7-17) mg/dL Creatinine (0.52-1.04) mg/dL Est GFR (CKD-EPI)AfAm (>60 ml/min/1.73 sqM) Est GFR (CKD-EPI)NonAf (>60 ml/min/1.73 sqM) Glucose (74-99) mg/dL Calcium (8.4-10.2) mg/dL Magnesium (1.6-2.3) mg/dL Total Bilirubin (0.2-1.3) mg/dL AST (14-36) U/L ALT (4-34) U/L Alkaline Phosphatase (38-126) U/L Total Protein (6.3-8.2) g/dL Albumin (3.5-5.0) g/dL Urine Color Light Yellow Urine Appearance Clear (Clear) Urine pH 7.0 (5.0-8.0) Ur Specific Harris 1.012 (1.001-1.035) Urine Protein Trace H (Negative) Urine Glucose (UA) Negative (Negative) Urine Ketones Negative (Negative) Urine Blood Negative (Negative) Urine Nitrite Negative (Negative) Urine Bilirubin Negative (Negative) Urine Urobilinogen <2.0 (<2.0) mg/dL Ur Leukocyte Esterase Negative (Negative) C. difficile (EIA) Intrp (Negative) Disposition Clinical Impression: Acute diarrhea Disposition: HOME SELF-CARE Condition: Good Instructions (If sedation given, give patient instructions): Acute Diarrhea (ED) Is patient prescribed a controlled substance at d/c from ED?: No Referrals: Ander Wolff MD [Primary Care Provider] - 1-2 days Time of Disposition: 12:56
[2022-06-03 11:27] LABS: Albumin 4.5 g/dL (3.5-5.0); Calcium 9.7 mg/dL (8.4-10.2); Magnesium 1.9 mg/dL (1.6-2.3); Total Bilirubin 0.7 mg/dL (0.2-1.3); Total Protein 8.1 g/dL (6.3-8.2)
[2022-06-03 12:24] LABS: Appearance,Urine Clear (Clear); Bilirubin,Urine Negative (Negative); Blood,Urine Negative (Negative); Color,Urine Light Yellow; Glucose,Urine (UA) Negative (Negative); Ketones,Urine Negative (Negative); Leukocyte Esterase,Urine Negative (Negative); Nitrite,Urine Negative (Negative); Protein,Urine Trace (Negative); Specific Gravity,Urine 1.012 (1.001-1.035); Urobilinogen,Urine <2.0 mg/dL (<2.0)
[2022-06-03] MEDS ORDERED: SODIUM CHLORIDE 0.9% 500 ML 500 ML IV ONE (12:31)
[2022-06-03] MEDS ORDERED: DIPHENOX-ATROP STARTER PACK 8 TAB BTL PO STA (12:57)
[2022-06-03 13:36] VITALS: BP 136/77; PULSE 98; RESP 18; TEMP 97.8
== END 2022-06-03 13:35 | disposition home or self-care (01) ==
LOC: EC 09:52
DX: R19.7 Diarrhea, unspecified (principal); J45.909 Unspecified asthma, uncomplicated; E07.89 Other specified disorders of thyroid; Z79.899 Other long term (current) drug therapy
CPT/HCPCS: 36415; 80053; 81003; 83735; 85025; 87045; 87046; 87324; 99284

== ENCOUNTER 2022-06-03 17:13 | Inpatient (IN) | payer MEDICARE ==
[2022-06-03] MEDS ORDERED: SODIUM CHLORIDE 0.9% 500 ML 500 ML IV STA (17:36)
--- NOTE | 2022-06-03 17:48 | ED ---
Weakness HPI - General Chief complaint: Weakness Stated complaint: Weakness Time Seen by Provider: 06/03/22 17:19 Source: EMS Mode of arrival: EMS - History of Present Illness Initial comments: This patient is an 87-year-old woman who presents to be evaluated for continuing diarrhea and generalized weakness. Patient states that she has been having a few days of diarrhea and was in fact seen earlier today in the emergency department. Patient had lab tests and IV and then went home. She states that she had eaten some toast and took Gatorade, then she had watery bowel movements. Patient denies richard abdominal pain though she has had some intermittent cramping. No chest pain or dyspnea. Patient was concerned because she had finished a course of antibiotics a week ago and she has previously had clostridium. Patient not having known fever. Not passing bloody or tarry bowel movements. -: days(s) Location: generalized Severity scale (1-10): 0 Consistency: constant Improves with: none Worsens with: none Associated Symptoms: denies other symptoms - Related Data Home Medications Medication Instructions Recorded Confirmed Levothyroxine Sodium [Synthroid] 50 mcg PO DAILY 03/06/14 06/03/22 Metoprolol Tartrate [Lopressor] 50 mg PO BID 06/17/16 06/03/22 Losartan/Hydrochlorothiazide 1 tab PO DAILY 06/19/16 06/03/22 [Losartan-Hctz 100-25 mg Tab] Warfarin [Coumadin] 5 mg PO SUMOTUTHFRSA@2100 06/19/16 06/03/22 Metoprolol Tartrate 25 mg PO DAILY@1200 11/08/21 06/03/22 Warfarin [Coumadin] 7.5 mg PO WE@2100 06/03/22 06/03/22 Allergies Allergy/AdvReac Type Severity Reaction Status Date / Time No Known Allergies Allergy Verified 06/03/22 20:04 Review of Systems ROS Statement: Those systems with pertinent positive or pertinent negative responses have been documented in the HPI. ROS Other: All systems not noted in ROS Statement are negative. Constitutional: Reports: weakness. Denies: fever, chills Respiratory: Denies: cough, dyspnea Cardiovascular: Denies: chest pain, palpitations Gastrointestinal: Reports: diarrhea. Denies: abdominal pain, nausea, vomiting, melena, hematochezia Genitourinary: Denies: dysuria, hematuria Musculoskeletal: Denies: back pain Skin: Denies: rash Neurological: Denies: headache, weakness Past Medical History Past Medical History: Atrial Fibrillation, Asthma, Hypertension, Osteoarthritis (OA), Thyroid Disorder Additional Past Medical History / Comment(s): Aortic regurgitation, hypothyroid, DJD History of Any Multi-Drug Resistant Organisms: C-DIFF Date of last positivie culture/infection: 11/16/2014 MDRO Source:: stool Past Surgical History: Hysterectomy, Joint Replacement, Orthopedic Surgery Additional Past Surgical History / Comment(s): BILATERAL CATARACTS (2013) TOTAL LEFT KNEE REPLACEMENT, R hip IT nailing, colonoscopy, bronchoscopy Past Anesthesia/Blood Transfusion Reactions: No Reported Reaction Past Psychological History: No Psychological Hx Reported Smoking Status: Never smoker Past Alcohol Use History: Rare Past Drug Use History: None Reported - Past Family History Father Family Medical History: Cancer Additional Family Medical History / Comment(s): unsure. "Possibly bone cancer," per patient. Sister(s) Family Medical History: Cancer Additional Family Medical History / Comment(s): Lymphoma Brother(s) Family Medical History: Cancer Additional Family Medical History / Comment(s): Melanoma General Exam General appearance: alert, in no apparent distress Head exam: Present: atraumatic Eye exam: Present: normal appearance ENT exam: Present: normal oropharynx, mucous membranes moist Neck exam: Present: normal inspection Respiratory exam: Present: normal lung sounds bilaterally. Absent: respiratory distress, wheezes, rales, rhonchi, stridor Cardiovascular Exam: Present: regular rate, normal rhythm, normal heart sounds. Absent: systolic murmur, diastolic murmur, rubs, gallop GI/Abdominal exam: Present: soft. Absent: distended, tenderness, guarding, rebound, rigid, mass Extremities exam: Present: normal inspection, normal capillary refill. Absent: pedal edema, calf tenderness Back exam: Present: normal inspection. Absent: CVA tenderness (R), CVA tenderness (L) Neurological exam: Present: alert Skin exam: Present: warm, dry, intact, normal color. Absent: rash Course Vital Signs 06/03/22 06/03/22 06/03/22 17:15 17:21 18:29 Temperature 98.2 F 98.6 F Pulse Rate 93 84 78 Respiratory 16 16 16 Rate Blood Pressure 128/81 128/81 105/70 O2 Sat by Pulse 96 100 100 Oximetry 06/03/22 20:18 Temperature Pulse Rate 114 H Respiratory 18 Rate Blood Pressure 136/89 O2 Sat by Pulse 95 Oximetry Medical Decision Making - Lab Data Result diagrams: 06/03/22 17:58 06/03/22 23:00 Lab Results 06/03/22 06/03/22 Range/Units 17:58 17:58 WBC 9.6 (3.8-10.6) k/uL RBC 3.07 L (3.80-5.40) m/uL Hgb 10.1 L (11.4-16.0) gm/dL Hct 29.9 L (34.0-46.0) % MCV 97.5 (80.0-100.0) fL MCH 32.9 (25.0-35.0) pg MCHC 33.8 (31.0-37.0) g/dL RDW 15.2 (11.5-15.5) % Plt Count 179 (150-450) k/uL MPV 8.3 Neutrophils % 81 % Lymphocytes % 9 % Monocytes % 7 % Eosinophils % 1 % Basophils % 0 % Neutrophils # 7.8 H (1.3-7.7) k/uL Lymphocytes # 0.9 L (1.0-4.8) k/uL Monocytes # 0.7 (0-1.0) k/uL Eosinophils # 0.1 (0-0.7) k/uL Basophils # 0.0 (0-0.2) k/uL Sodium 136 L (137-145) mmol/L Potassium 2.1 L* (3.5-5.1) mmol/L Chloride 108 H (98-107) mmol/L Carbon Dioxide 18 L (22-30) mmol/L Anion Gap 10 mmol/L BUN 20 H (7-17) mg/dL Creatinine 0.70 (0.52-1.04) mg/dL Est GFR (CKD-EPI)AfAm 89 (>60 ml/min/1.73 sqM) Est GFR (CKD-EPI)NonAf 77 (>60 ml/min/1.73 sqM) Glucose 115 H (74-99) mg/dL Calcium 6.7 L (8.4-10.2) mg/dL - EKG Data EKG shows normal: axis (Right axis deviation), intervals (Normal), QRS complexes (Incomplete right bundle branch block.) Rate: tachycardia Interpretation: other (Underlying rhythm appears to be atrial fibrillation) Disposition Clinical Impression: Hypokalemia, Dehydration Disposition: ADMITTED IP TO THIS HOSP Condition: Fair
[2022-06-03 18:07] LABS: Basophils % (A) 0 %; Eosinophils # (A) 0.1 k/uL (0-0.7); Eosinophils % (A) 1 %; HCT 29.9 % (34.0-46.0); HGB 10.1 gm/dL (11.4-16.0); Lymphocytes # (A) 0.9 k/uL (1.0-4.8); Lymphocytes % (A) 9 %; MCH 32.9 pg (25.0-35.0); MCHC 33.8 g/dL (31.0-37.0); MCV 97.5 fL (80.0-100.0); Mean Platelet Volume 8.3; Monocytes # (A) 0.7 k/uL (0-1.0); Monocytes % (A) 7 %; Neutrophils # (A) 7.8 k/uL (1.3-7.7); Neutrophils % (A) 81 %; Platelet Count 179 k/uL (150-450); RBC 3.07 m/uL (3.80-5.40); RDW 15.2 % (11.5-15.5); WBC 9.6 k/uL (3.8-10.6)
[2022-06-03 18:17] LABS: Calcium 6.7 mg/dL (8.4-10.2)
[2022-06-03 18:35] LABS: Potassium 2.1 mmol/L (3.5-5.1)
[2022-06-03] MEDS ORDERED: NALOXONE 0.4 MG/ML 1 ML VIAL IV PRN (19:24)
[2022-06-03] MEDS ORDERED: ACETAMINOPHEN TAB 325 MG TAB PO PRN (19:24)
[2022-06-03] MEDS ORDERED: MAG HYDROX/AL HYDROX/SIMETH 30 ML CUP PO PRN (19:24)
[2022-06-03] MEDS ORDERED: POTASSIUM CHLORIDE ER 20 MEQ TAB.ER PO STA (19:27)
[2022-06-03] MEDS: SODIUM CHLORIDE 0.9% 1,000 ML IV SCH (20:14)
[2022-06-03] MEDS ORDERED: METOPROLOL TARTRATE 50 MG TAB PO STA (20:39)
[2022-06-03] MEDS ORDERED: Magnesium Replacement Protocol 1 EACH MISC MISCELLANE PRN (22:06)
[2022-06-03] MEDS ORDERED: Potassium Replacement Protocol 1 EACH MISC MISCELLANE PRN (22:06)
[2022-06-03 23:27] LABS: Magnesium 1.8 mg/dL (1.6-2.3); Potassium 3.5 mmol/L (3.5-5.1)
[2022-06-04] MEDS: LEVOTHYROXINE 50 MCG TAB PO SCH (06:46)
--- NOTE | 2022-06-04 07:32 | XR ---
EXAMINATION TYPE: XR chest 1V portable DATE OF EXAM: 06/04/2022 COMPARISON: NONE HISTORY: Shortness of breath TECHNIQUE: Single frontal view of the chest is obtained. FINDINGS: The heart is moderately enlarged but the pulmonary vasculature is not congested. The lungs are clear consolidative, interstitial or masslike opacity. There is no pleural effusion or pneumothorax. The osseous structures and soft tissues are unremarkable. IMPRESSION: Moderate cardiomegaly without evidence for acute cardiopulmonary disease.
--- NOTE | 2022-06-04 08:14 | P.HPIM ---
History of Present Illness This is a pleasant 87 years old female with past medical history of atrial fibrillation on warfarin and hypertension, hypothyroidism, asthma and osteoarthritis Patient presents because of diarrhea for about one week, getting progressive gradually. Was once a week currently every 2-3 hours. She is complaining of from also abdominal cramps, mild to moderate, and the left side of the abdomen, going across the abdomen. With no nausea vomiting. No chest pain or dyspnea or headache or weakness or numbness. No urgency or dysuria or fever. She feels generally weak No smoking or alcohol. Vitas looks stable and patient is afebrile. CBC is unremarkable with no leukocytosis. Hemoglobin 10.1. 136, potassium 2.1 Creatinine 0.7. Coronavirus not detected EKG showing atrial fibrillation with RVR at 107 In the emergency room received metoprolol, potassium replacement and normal saline Review of Systems Review of systems CONSTITUTIONAL: No fever, no malaise, no fatigue. HEENT: No recent visual problems or hearing problems. Denied any sore throat. CARDIOVASCULAR: No orthopnea, PND, no palpitations, no syncope. PULMONARY: No shortness of breath, no cough, no hemoptysis. GASTROINTESTINAL: no nausea, no vomiting, Normoactive bowel sounds. NEUROLOGICAL: No headaches, no weakness, no numbness. HEMATOLOGICAL: Denies any bleeding or petechiae. GENITOURINARY: Denies any burning micturition, frequency, or urgency. MUSCULOSKELETAL/RHEUMATOLOGICAL: Denies any joint pain, swelling, or any muscle pain. ENDOCRINE: Denies any polyuria or polydipsia. Past Medical History Past Medical History: Atrial Fibrillation, Asthma, Hypertension, Osteoarthritis (OA), Thyroid Disorder Additional Past Medical History / Comment(s): Aortic regurgitation, hypothyroid, DJD History of Any Multi-Drug Resistant Organisms: C-DIFF Date of last positivie culture/infection: 11/16/2014 MDRO Source:: stool Past Surgical History: Hysterectomy, Joint Replacement, Orthopedic Surgery Additional Past Surgical History / Comment(s): BILATERAL CATARACTS (2013) TOTAL LEFT KNEE REPLACEMENT, R hip IT nailing, colonoscopy, bronchoscopy Past Anesthesia/Blood Transfusion Reactions: No Reported Reaction Past Psychological History: No Psychological Hx Reported Smoking Status: Never smoker Past Alcohol Use History: Rare Past Drug Use History: None Reported - Past Family History Father Family Medical History: Cancer Additional Family Medical History / Comment(s): unsure. "Possibly bone cancer," per patient. Sister(s) Family Medical History: Cancer Additional Family Medical History / Comment(s): Lymphoma Brother(s) Family Medical History: Cancer Additional Family Medical History / Comment(s): Melanoma Medications and Allergies Home Medications Medication Instructions Recorded Confirmed Type Levothyroxine Sodium [Synthroid] 50 mcg PO DAILY 03/06/14 06/03/22 History Metoprolol Tartrate [Lopressor] 50 mg PO BID 06/17/16 06/03/22 History Losartan/Hydrochlorothiazide 1 tab PO DAILY 06/19/16 06/03/22 History [Losartan-Hctz 100-25 mg Tab] Warfarin [Coumadin] 5 mg PO SUMOTUTHFRSA@209906/19/16 06/03/22 History Metoprolol Tartrate 25 mg PO DAILY@1200 11/08/21 06/03/22 History Warfarin [Coumadin] 7.5 mg PO WE@2100 06/03/22 06/03/22 History Allergies Allergy/AdvReac Type Severity Reaction Status Date / Time No Known Allergies Allergy Verified 06/03/22 20:04 Physical Exam Vitals: Vital Signs Temp Pulse Pulse Resp BP BP Pulse Ox 06/04/22 04:00 98 F 88 18 120/58 94 L 06/04/22 00:00 80 17 106/64 94 L 06/03/22 21:24 98.2 F 100 18 138/78 98 06/03/22 20:18 114 H 18 136/89 95 06/03/22 18:29 78 16 105/70 100 06/03/22 17:21 98.6 F 84 16 128/81 100 06/03/22 17:15 98.2 F 93 16 128/81 96 Intake and Output 06/03/22 06/04/22 06/04/22 22:59 06:59 14:59 Output Total 1 3 Balance -1 -3 Output: Urine/Stool Mix 1 3 Other: Weight 52.163 kg GENERAL: The patient is alert and oriented x3, not in any acute distress. Well developed, well nourished. HEENT: Pupils are round and equally reacting to light. EOMI. No scleral icterus. No conjunctival pallor. Normocephalic, atraumatic. No pharyngeal erythema. No thyromegaly. CARDIOVASCULAR: S1 and S2 present. No murmurs, rubs, or gallops. PULMONARY: Chest is clear to auscultation, no wheezing or crackles. ABDOMEN: Soft, nontender, nondistended, normoactive bowel sounds. No palpable organomegaly. MUSCULOSKELETAL: No joint swelling or deformity. EXTREMITIES: No cyanosis, clubbing, or pedal edema. NEUROLOGICAL: Gross neurological examination did not reveal any focal deficits. SKIN: No rashes. no petechiae. Results CBC & Chem 7: 06/03/22 17:58 06/03/22 23:00 Labs: Abnormal Lab Results - Last 24 Hours (Table) 06/03/22 06/03/22 Range/Units 17:58 17:58 RBC 3.07 L (3.80-5.40) m/uL Hgb 10.1 L (11.4-16.0) gm/dL Hct 29.9 L (34.0-46.0) % Neutrophils # 7.8 H (1.3-7.7) k/uL Lymphocytes # 0.9 L (1.0-4.8) k/uL Sodium 136 L (137-145) mmol/L Potassium 2.1 L* (3.5-5.1) mmol/L Chloride 108 H (98-107) mmol/L Carbon Dioxide 18 L (22-30) mmol/L BUN 20 H (7-17) mg/dL Glucose 115 H (74-99) mg/dL Calcium 6.7 L (8.4-10.2) mg/dL Thrombosis Risk Factor Assmnt - Choose All That Apply Any of the Below Risk Factors Present?: No Each Risk Factor Represents 3 Points: Age 75 years or older Other congenital or acquired thrombophilia - If yes, enter type in comment: No Thrombosis Risk Factor Assessment Total Risk Factor Score: 3 Thrombosis Risk Factor Assessment Level: Moderate Risk Assessment and Plan Assessment: Acute gastroenteritis Chronic atrial fibrillation on warfarin Hypertension Hypothyroidism History of asthma, not an active issue History of osteoarthritis Plan: This is a pleasant 87 years old female with acute gastroenteritis Continue with IV fluids Check C. diff Monitor electrolytes and replace per protocol especially potassium and magnesium Check a pro-calcitonin The stool studies Labs and medication were reviewed.. Continue same treatment. Continue with symptomatic treatment. Resume home medication. Monitor lytes and vitals. DVT and GI prophylaxis. Further recommendations as per clinical course of the patient DVT prophylaxis: Subcutaneous heparin GI Prophylaxis: Pepcid PT/OT: Pending Prognosis is guarded
[2022-06-04] MEDS: SODIUM CHLORIDE 0.9% 1,000 ML IV SCH ×2 (08:32→23:47)
[2022-06-04] MEDS: METOPROLOL TARTRATE 50 MG TAB PO SCH ×2 (08:32→18:10)
[2022-06-04] MEDS ORDERED: HEPARIN SODIUM,PORCINE/PF 5,000 UNIT/0.5 ML SYRINGE SQ SCH (09:00)
[2022-06-04] MEDS ORDERED: FAMOTIDINE 20 MG/2 ML VIAL IV SCH (09:00)
[2022-06-04 09:28] LABS: Basophils % (A) 0 %; Eosinophils # (A) 0.1 k/uL (0-0.7); Eosinophils % (A) 1 %; HCT 36.1 % (34.0-46.0); Lymphocytes # (A) 0.7 k/uL (1.0-4.8); Lymphocytes % (A) 9 %; MCH 32.3 pg (25.0-35.0); MCHC 33.2 g/dL (31.0-37.0); MCV 97.3 fL (80.0-100.0); Mean Platelet Volume 8.2; Monocytes # (A) 0.6 k/uL (0-1.0); Monocytes % (A) 8 %; Neutrophils # (A) 6.3 k/uL (1.3-7.7); Neutrophils % (A) 80 %; Platelet Count 213 k/uL (150-450); RBC 3.71 m/uL (3.80-5.40); RDW 15.5 % (11.5-15.5); WBC 7.9 k/uL (3.8-10.6)
[2022-06-04 09:32] LABS: INR 2.8 (<1.2); Prothrombin Time 27.4 sec (9.0-12.0)
[2022-06-04 09:53] LABS: Albumin 4.2 g/dL (3.5-5.0); Bilirubin, Delta 0.1 mg/dL (0.0-0.2); Bilirubin,Unconjugated 0.4 mg/dL (0.0-1.1); Magnesium 1.8 mg/dL (1.6-2.3); Potassium 3.1 mmol/L (3.5-5.1); Total Bilirubin 0.5 mg/dL (0.2-1.3); Total Protein 7.6 g/dL (6.3-8.2)
[2022-06-04] MEDS: VANCOMYCIN 125 MG CAPSULE PO SCH ×4 (09:53→20:14)
[2022-06-04] MEDS: POTASSIUM CHLORIDE ER 20 MEQ TAB.ER PO SCH ×2 (10:05→11:11)
--- NOTE | 2022-06-04 12:41 | P.GSCN ---
History of Present Illness Consult date: 06/04/22 Reason for Consult: Diarrhea, C. diff colitis History of present illness: This is an 87-year-old female who had acute issue diarrhea. Patient's stool was tested for C. diff.. She is positive. Patient denies a significant abdominal pain. There is no leukocytosis. Past Medical History Past Medical History: Atrial Fibrillation, Asthma, Hypertension, Osteoarthritis (OA), Thyroid Disorder Additional Past Medical History / Comment(s): Aortic regurgitation, hypothyroid, DJD History of Any Multi-Drug Resistant Organisms: C-DIFF Year Discovered:: 11/16/2014 MDRO Source:: stool Past Surgical History: Hysterectomy, Joint Replacement, Orthopedic Surgery Additional Past Surgical History / Comment(s): BILATERAL CATARACTS (2013) TOTAL LEFT KNEE REPLACEMENT, R hip IT nailing, colonoscopy, bronchoscopy Past Anesthesia/Blood Transfusion Reactions: No Reported Reaction Past Psychological History: No Psychological Hx Reported Smoking Status: Never smoker Past Alcohol Use History: Rare Past Drug Use History: None Reported - Past Family History Father Family Medical History: Cancer Additional Family Medical History / Comment(s): unsure. "Possibly bone cancer," per patient. Sister(s) Family Medical History: Cancer Additional Family Medical History / Comment(s): Lymphoma Brother(s) Family Medical History: Cancer Additional Family Medical History / Comment(s): Melanoma Medications and Allergies Home Medications Medication Instructions Recorded Confirmed Type Levothyroxine Sodium [Synthroid] 50 mcg PO DAILY 03/06/14 06/03/22 History Metoprolol Tartrate [Lopressor] 50 mg PO BID 06/17/16 06/03/22 History Losartan/Hydrochlorothiazide 1 tab PO DAILY 06/19/16 06/03/22 History [Losartan-Hctz 100-25 mg Tab] Warfarin [Coumadin] 5 mg PO [id number]@209906/19/16 06/03/22 History Metoprolol Tartrate 25 mg PO DAILY@1200 11/08/21 06/03/22 History Warfarin [Coumadin] 7.5 mg PO WE@209906/03/22 06/03/22 History Allergies Allergy/AdvReac Type Severity Reaction Status Date / Time No Known Allergies Allergy Verified 06/03/22 20:04 Surgical - Exam Vital Signs Temp Pulse Resp BP Pulse Ox 98.2 F 93 16 128/81 96 06/03/22 17:15 06/03/22 17:15 06/03/22 17:15 06/03/22 17:15 06/03/22 17:15 - General well developed, well nourished, no distress - Eyes PERRL - ENT normal pinna - Neck no masses - Respiratory normal expansion - Cardiovascular Rhythm: regular - Abdomen Abdomen: soft, non tender Results - Labs 06/04/22 09:15 06/04/22 09:15 Abnormal Lab Results - Last 24 Hours (Table) 06/03/22 06/03/22 06/04/22 Range/Units 17:58 17:58 01:15 RBC 3.07 L (3.80-5.40) m/uL Hgb 10.1 L (11.4-16.0) gm/dL Hct 29.9 L (34.0-46.0) % Neutrophils # 7.8 H (1.3-7.7) k/uL Lymphocytes # 0.9 L (1.0-4.8) k/uL PT (9.0-12.0) sec INR (<1.2) Sodium 136 L (137-145) mmol/L Potassium 2.1 L* (3.5-5.1) mmol/L Chloride 108 H (98-107) mmol/L Carbon Dioxide 18 L (22-30) mmol/L BUN 20 H (7-17) mg/dL Glucose 115 H (74-99) mg/dL Calcium 6.7 L (8.4-10.2) mg/dL C. difficile (EIA) Intrp Positive A (Negative) 06/04/22 06/04/22 06/04/22 Range/Units 09:15 09:15 09:15 RBC 3.71 L (3.80-5.40) m/uL Hgb (11.4-16.0) gm/dL Hct (34.0-46.0) % Neutrophils # (1.3-7.7) k/uL Lymphocytes # 0.7 L (1.0-4.8) k/uL PT 27.4 H (9.0-12.0) sec INR 2.8 H (<1.2) Sodium (137-145) mmol/L Potassium 3.1 L (3.5-5.1) mmol/L Chloride (98-107) mmol/L Carbon Dioxide 21 L (22-30) mmol/L BUN 20 H (7-17) mg/dL Glucose 136 H (74-99) mg/dL Calcium (8.4-10.2) mg/dL C. difficile (EIA) Intrp (Negative) Diabetes panel 06/03/22 06/03/22 06/04/22 Range/Units 17:58 23:00 09:15 Sodium 136 L 137 (137-145) mmol/L Potassium 2.1 L* 3.5 3.1 L (3.5-5.1) mmol/L Chloride 108 H 100 (98-107) mmol/L Carbon Dioxide 18 L 21 L (22-30) mmol/L BUN 20 H 20 H (7-17) mg/dL Creatinine 0.70 0.82 (0.52-1.04) mg/dL Glucose 115 H 136 H (74-99) mg/dL Calcium 6.7 L 9.0 (8.4-10.2) mg/dL AST 35 (14-36) U/L ALT 18 (4-34) U/L Alkaline Phosphatase 71 (38-126) U/L Total Protein 7.6 (6.3-8.2) g/dL Albumin 4.2 (3.5-5.0) g/dL Calcium panel 06/03/22 06/04/22 Range/Units 17:58 09:15 Calcium 6.7 L 9.0 (8.4-10.2) mg/dL Albumin 4.2 (3.5-5.0) g/dL Pituitary panel 06/03/22 06/03/22 06/04/22 Range/Units 17:58 23:00 09:15 Sodium 136 L 137 (137-145) mmol/L Potassium 2.1 L* 3.5 3.1 L (3.5-5.1) mmol/L Chloride 108 H 100 (98-107) mmol/L Carbon Dioxide 18 L 21 L (22-30) mmol/L BUN 20 H 20 H (7-17) mg/dL Creatinine 0.70 0.82 (0.52-1.04) mg/dL Glucose 115 H 136 H (74-99) mg/dL Calcium 6.7 L 9.0 (8.4-10.2) mg/dL Adrenal panel 06/03/22 06/03/22 06/04/22 Range/Units 17:58 23:00 09:15 Sodium 136 L 137 (137-145) mmol/L Potassium 2.1 L* 3.5 3.1 L (3.5-5.1) mmol/L Chloride 108 H 100 (98-107) mmol/L Carbon Dioxide 18 L 21 L (22-30) mmol/L BUN 20 H 20 H (7-17) mg/dL Creatinine 0.70 0.82 (0.52-1.04) mg/dL Glucose 115 H 136 H (74-99) mg/dL Calcium 6.7 L 9.0 (8.4-10.2) mg/dL Total Bilirubin 0.5 (0.2-1.3) mg/dL AST 35 (14-36) U/L ALT 18 (4-34) U/L Alkaline Phosphatase 71 (38-126) U/L Total Protein 7.6 (6.3-8.2) g/dL Albumin 4.2 (3.5-5.0) g/dL Assessment and Plan Assessment: C. diff colitis. Patient will K receive IV antibiotic therapy. Her abdomen soft nontender. No surgicalis planned.
[2022-06-04 13:55] LABS: Appearance,Urine Cloudy (Clear); Bacteria,Urine Occasional /hpf; Bilirubin,Urine Negative (Negative); Blood,Urine Moderate (Negative); Color,Urine Yellow; Glucose,Urine (UA) Negative (Negative); Ketones,Urine Negative (Negative); Leukocyte Esterase,Urine Large (Negative); Mucus,Urine Rare /hpf; Nitrite,Urine Negative (Negative); PH, Urine 5.5 (5.0-8.0); Protein,Urine 1+ (Negative); RBC,Urine 23 /hpf (0-5); Specific Gravity,Urine 1.017 (1.001-1.035); Squamous Epithelial Cell,Urine 8 /hpf (0-4); Urobilinogen,Urine <2.0 mg/dL (<2.0); WBC,Urine >182 /hpf (0-5)
[2022-06-04] MEDS ORDERED: WARFARIN 5 MG TAB PO ONE (21:00)
[2022-06-05] MEDS: LEVOTHYROXINE 50 MCG TAB PO SCH (06:20)
[2022-06-05 09:08] LABS: INR 2.8 (<1.2); Prothrombin Time 27.5 sec (9.0-12.0)
[2022-06-05] MEDS: METOPROLOL TARTRATE 50 MG TAB PO SCH ×2 (10:12→20:11)
[2022-06-05] MEDS: VANCOMYCIN 125 MG CAPSULE PO SCH ×4 (10:12→20:11)
[2022-06-05] MEDS: FAMOTIDINE 20 MG/2 ML VIAL IV SCH (10:12)
[2022-06-05] MEDS ORDERED: POTASSIUM CHLORIDE ER 20 MEQ TAB.ER PO STA ×2 (11:54→14:11)
[2022-06-05] MEDS: SODIUM CHLORIDE 0.9% 1,000 ML IV SCH ×2 (12:06→20:12)
[2022-06-05] MEDS ORDERED: POTASSIUM CHLORIDE 20 MEQ in WATER FOR INJECTION 1 100ML.BAG IVPB ONE (13:00)
[2022-06-05] MEDS: POTASSIUM CHLORIDE 10 MEQ in WATER FOR INJECTION 1 100ML.BAG IVPB SCH ×2 (13:26→14:25)
--- NOTE | 2022-06-05 14:20 | P.PN ---
Subjective Progress Note Date: 06/05/22 CHIEF COMPLAINT: C. diff colitis HISTORY OF PRESENT ILLNESS: Patient reports that her diarrhea showing im provement. It is less frequent. She had only one episode of diarrhea last night and it is becoming more thicker. No stool this morning. Denies any nausea or vomiting. She is on oral vancomycin. She denies any abdominal pain. Tolerating regular diet. Afebrile. WBC from yesterday 7.9 potassium 2.6 and being replaced. Magnesium 1.8 PHYSICAL EXAM: VITAL SIGNS: Reviewed. GENERAL: Well-developed in no acute distress. HEENT: No sclera icterus. Extraocular movements grossly intact. Moist buccal mucosa. Head is atraumatic, normocephalic. ABDOMEN: Soft. Nondistended. Nontender. NEUROLOGIC: Alert and oriented. Cranial nerves II through XII grossly intact. ASSESSMENT: 1. C. diff colitis 2. Hypokalemia PLAN: -Continue oral vancomycin for C. diff colitis -Continue to replace potassium -Follow up on CBC and BMP tomorrow -Continue to replace potassium -Continue supportive care -No surgical intervention planned Physician Band Instrument Maker note has been reviewed by physician. Signing provider agrees with the documented findings, assessment, and plan of care. Objective - Vital Signs Vital signs: Vital Signs Temp 97.8 F 06/05/22 10:10 Pulse 74 06/05/22 14:05 Resp 18 06/05/22 14:05 BP 116/74 06/05/22 14:05 Pulse Ox 97 06/05/22 14:05 FiO2 Intake & Output 06/04/22 06/05/22 06/05/22 18:59 06:59 18:59 Intake Total 340 240 Output Total 1000 Balance -660 240 Intake: Oral 340 240 Output: Urine 300 Urine/Stool Mix 700 Other: Voiding Method Toilet # Voids 3 1 # Bowel Movements 3 2 1 - Labs CBC & Chem 7: 06/04/22 09:15 06/05/22 08:18 Labs: Abnormal Lab Results - Last 24 Hours (Table) 06/03/22 06/05/22 06/05/22 Range/Units 01:15 08:18 08:18 PT 27.5 H (9.0-12.0) sec INR 2.8 H (<1.2) Potassium 2.6 L* (3.5-5.1) mmol/L Stool Lactoferrin POSITIVE A (NEGATIVE) Microbiology - Last 24 Hours (Table) 06/04/22 13:00 Urine Culture - Preliminary Urine,Voided Gram Neg Bacilli 06/03/22 01:15 Stool Culture - Preliminary Stool
[2022-06-05] MEDS ORDERED: WARFARIN 5 MG TAB PO ONE (18:00)
[2022-06-06] MEDS: LEVOTHYROXINE 50 MCG TAB PO SCH (06:16)
[2022-06-06 08:40] LABS: HCT 33.6 % (34.0-46.0); HGB 11.1 gm/dL (11.4-16.0); Hypochromasia Slight; MCH 32.8 pg (25.0-35.0); MCV 99.4 fL (80.0-100.0); Macrocytosis Slight; Mean Platelet Volume 8.5; Platelet Count 189 k/uL (150-450); RBC 3.38 m/uL (3.80-5.40); RDW 15.1 % (11.5-15.5); WBC 6.8 k/uL (3.8-10.6)
[2022-06-06 08:58] LABS: INR 3.1 (<1.2)
[2022-06-06 09:11] LABS: Calcium 8.2 mg/dL (8.4-10.2); Potassium 3.1 mmol/L (3.5-5.1)
[2022-06-06] MEDS: FAMOTIDINE 20 MG/2 ML VIAL IV SCH (09:38)
[2022-06-06] MEDS: POTASSIUM CHLORIDE ER 20 MEQ TAB.ER PO SCH (09:38)
[2022-06-06] MEDS: METOPROLOL TARTRATE 50 MG TAB PO SCH ×2 (09:38→20:45)
[2022-06-06] MEDS: VANCOMYCIN 125 MG CAPSULE PO SCH ×4 (09:39→20:45)
[2022-06-06] MEDS ORDERED: POTASSIUM CHLORIDE ER 20 MEQ TAB.ER PO STA (10:28)
--- NOTE | 2022-06-06 10:29 | P.PN ---
Subjective Progress Note Date: 06/05/22 This is a pleasant 87 years old female with past medical history of atrial fibrillation on warfarin and hypertension, hypothyroidism, asthma and osteoarthritis Patient presents because of diarrhea for about one week, getting progressive gradually. Was once a week currently every 2-3 hours. She is complaining of from also abdominal cramps, mild to moderate, and the left side of the abdomen, going across the abdomen. With no nausea vomiting. No chest pain or dyspnea or headache or weakness or numbness. No urgency or dysuria or fever. She feels generally weak No smoking or alcohol. Vitas looks stable and patient is afebrile. CBC is unremarkable with no leukocytosis. Hemoglobin 10.1. 136, potassium 2.1 Creatinine 0.7. Coronavirus not detected EKG showing atrial fibrillation with RVR at 107 In the emergency room received metoprolol, potassium replacement and normal saline 06/05/2022 Patient is lying in the bed. Awake alert and oriented 3 feels weak. No compressive chest pain or shortness breath. No complaints of Abdominal pain. Patient is still having loose watery diarrhea. Tolerating minimal oral intake. Potassium is being very low. 2.6 as is being replaced. Otherwise patient is on vancomycin by mouth for C. diff colitis. Patient has been afebrile. No cough or sputum production. Current medications reviewed. Objective - Vital Signs Vital signs: Vital Signs Temp 97.8 F 06/05/22 10:10 Pulse 103 H 06/05/22 10:10 Resp 15 06/05/22 10:10 BP 148/85 06/05/22 10:10 Pulse Ox 96 06/05/22 10:10 FiO2 Intake & Output 06/04/22 06/05/22 06/05/22 18:59 06:59 18:59 Intake Total 340 240 Output Total 1000 Balance -660 240 Intake: Oral 340 240 Output: Urine 300 Urine/Stool Mix 700 Other: Voiding Method Toilet # Voids 3 # Bowel Movements 3 2 - Exam GENERAL: The patient is alert and oriented x3, not in any acute distress. Well developed, well nourished. HEENT: Pupils are round and equally reacting to light. EOMI. No scleral icterus. No conjunctival pallor. Normocephalic, atraumatic. No pharyngeal erythema. No thyromegaly. CARDIOVASCULAR: S1 and S2 present. No murmurs, rubs, or gallops. PULMONARY: Chest is clear to auscultation, no wheezing or crackles. ABDOMEN: Soft, nontender, nondistended, normoactive bowel sounds. No palpable organomegaly. MUSCULOSKELETAL: No joint swelling or deformity. EXTREMITIES: No cyanosis, clubbing, or pedal edema. NEUROLOGICAL: Gross neurological examination did not reveal any focal deficits. SKIN: No rashes. no petechiae. - Labs CBC & Chem 7: 06/07/22 08:31 06/07/22 08:31 Labs: Abnormal Lab Results - Last 24 Hours (Table) 06/04/22 06/05/22 Range/Units 13:00 08:18 PT 27.5 H (9.0-12.0) sec INR 2.8 H (<1.2) Urine Appearance Cloudy H (Clear) Urine Protein 1+ H (Negative) Urine Blood Moderate H (Negative) Ur Leukocyte Esterase Large H (Negative) Urine RBC 23 H (0-5) /hpf Urine WBC >182 H (0-5) /hpf Urine WBC Clumps Few H (None) /hpf Ur Squamous Epith Cells 8 H (0-4) /hpf Urine Bacteria Occasional H (None) /hpf Urine Mucus Rare H (None) /hpf Microbiology - Last 24 Hours (Table) 06/04/22 13:00 Urine Culture - Preliminary Urine,Voided 06/03/22 01:15 Stool Culture - Preliminary Stool Assessment and Plan Assessment: Diarrhea due to Acute Cdiff colitis Severe hypokalemia Chronic atrial fibrillation on warfarin Hypertension Hypothyroidism History of asthma, not an active issue History of osteoarthritis Plan: This is a pleasant 87 years old female with acute gastroenteritis Continue with IV fluids. Patient still having diarrhea. Monitor electrolytes and replace per protocol especially potassium and magnesium f/w stool studies Labs and medication were reviewed. DVT and GI prophylaxis. DVT prophylaxis: Subcutaneous heparin GI Prophylaxis: Pepcid PT/OT: Pending Prognosis is guarded Time with Patient: Greater than 30
--- NOTE | 2022-06-06 13:08 | P.PN ---
Subjective Progress Note Date: 06/06/22 CHIEF COMPLAINT: C. diff colitis HISTORY OF PRESENT ILLNESS: Patient reports that she had 3 episodes diarrhea last night and one episode this morning. She's had no further diarrhea since this morning. Denies any abdominal pain. Denies any nausea or vomiting. She is tolerant diet. Afebrile. WBC is 6.8 Hgb 11.1 platelets 189 INR is 3.1 sodium is 138 potassium 3.1 creatinine 0.69 Patient seen and examined with Dr. Fried PHYSICAL EXAM: VITAL SIGNS: Reviewed. GENERAL: Well-developed in no acute distress. HEENT: No sclera icterus. Extraocular movements grossly intact. Moist buccal mucosa. Head is atraumatic, normocephalic. ABDOMEN: Soft. Nondistended. Nontender. NEUROLOGIC: Alert and oriented. Cranial nerves II through XII grossly intact. ASSESSMENT: 1. C. diff colitis 2. Hypokalemia PLAN: -Continue oral vancomycin for C. diff colitis -Continue to replace potassium -Follow up on CBC and BMP tomorrow -Continue supportive care -No surgical intervention planned Physician Core Cutter note has been reviewed by physician. Signing provider agrees with the documented findings, assessment, and plan of care. Objective - Vital Signs Vital signs: Vital Signs Temp 97.5 F L 06/06/22 11:41 Pulse 102 H 06/06/22 11:41 Resp 16 06/06/22 11:41 BP 142/83 06/06/22 11:41 Pulse Ox 100 06/06/22 11:41 FiO2 Intake & Output 06/05/22 06/06/22 06/06/22 18:59 06:59 18:59 Intake Total 476 240 Balance 476 240 Intake: Oral 476 240 Other: Voiding Method Toilet Toilet # Voids 1 8 2 # Bowel Movements 1 8 2 - Labs CBC & Chem 7: 06/06/22 08:24 06/06/22 08:24 Labs: Abnormal Lab Results - Last 24 Hours (Table) 06/06/22 06/06/22 06/06/22 Range/Units 08:24 08:24 08:24 RBC 3.38 L (3.80-5.40) m/uL Hgb 11.1 L (11.4-16.0) gm/dL Hct 33.6 L (34.0-46.0) % PT 31.0 H (9.0-12.0) sec INR 3.1 H (<1.2) Potassium 3.1 L (3.5-5.1) mmol/L Glucose 114 H (74-99) mg/dL Calcium 8.2 L (8.4-10.2) mg/dL Microbiology - Last 24 Hours (Table) 06/04/22 13:00 Urine Culture - Final Urine,Voided Escherichia coli 06/03/22 01:15 Stool Culture - Preliminary Stool
[2022-06-06] MEDS: CHOLESTYRAMINE (WITH SUGAR) 4 GM PACKET PO SCH (17:52)
[2022-06-06] MEDS: SODIUM CHLORIDE 0.9% 1,000 ML IV SCH (17:54)
[2022-06-06] MEDS ORDERED: WARFARIN 0.5 MG TAB PO ONE (18:00)
[2022-06-07] MEDS: LEVOTHYROXINE 50 MCG TAB PO SCH (06:32)
[2022-06-07] MEDS: SODIUM CHLORIDE 0.9% 1,000 ML IV SCH ×2 (06:44→11:42)
[2022-06-07] MEDS: VANCOMYCIN 125 MG CAPSULE PO SCH ×4 (08:32→22:58)
[2022-06-07] MEDS: POTASSIUM CHLORIDE ER 20 MEQ TAB.ER PO SCH ×3 (08:32→12:36)
[2022-06-07] MEDS: METOPROLOL TARTRATE 50 MG TAB PO SCH ×2 (08:32→22:58)
[2022-06-07] MEDS: FAMOTIDINE 20 MG/2 ML VIAL IV SCH (08:32)
[2022-06-07] MEDS: CHOLESTYRAMINE (WITH SUGAR) 4 GM PACKET PO SCH ×2 (08:32→18:00)
[2022-06-07 09:55] LABS: INR 2.5 (<1.2); Prothrombin Time 24.9 sec (9.0-12.0)
[2022-06-07 10:06] LABS: HCT 35.4 % (34.0-46.0); HGB 11.5 gm/dL (11.4-16.0); Hypochromasia Slight; MCH 32.3 pg (25.0-35.0); MCHC 32.6 g/dL (31.0-37.0); MCV 99.1 fL (80.0-100.0); Macrocytosis Slight; Mean Platelet Volume 8.6; Platelet Count 208 k/uL (150-450); RBC 3.58 m/uL (3.80-5.40); RDW 15.4 % (11.5-15.5); WBC 7.5 k/uL (3.8-10.6)
[2022-06-07 10:30] LABS: Calcium 8.7 mg/dL (8.4-10.2); Potassium 3.3 mmol/L (3.5-5.1)
[2022-06-07] MEDS ORDERED: POTASSIUM CHLORIDE ER 20 MEQ TAB.ER PO STA (11:52)
--- NOTE | 2022-06-07 12:08 | P.PN ---
Subjective Progress Note Date: 06/07/22 CHIEF COMPLAINT: C. diff colitis HISTORY OF PRESENT ILLNESS: Patient reports having a formed stool this morning. She's had no further bowel movements since. Medicine service did add Questran yesterday. Denies any abdominal pain. She is tolerating diet. Afebrile. Mild tachycardia. WBC 7.5 hemoglobin 11.5 INR 2.5 sodium is 136 potassium 3.3 creatinine 0.71 Patient seen and examined with Dr. Fried PHYSICAL EXAM: VITAL SIGNS: Reviewed. GENERAL: Well-developed in no acute distress. HEENT: No sclera icterus. Extraocular movements grossly intact. Moist buccal mucosa. Head is atraumatic, normocephalic. ABDOMEN: Soft. Nondistended. Nontender. NEUROLOGIC: Alert and oriented. Cranial nerves II through XII grossly intact. ASSESSMENT: 1. C. diff colitis 2. Hypokalemia PLAN: -Continue oral vancomycin for C. diff colitis -Continue to replace potassium -Continue supportive care -No surgical intervention planned -Patient can be discharged from surgical standpoint when medically cleared Physician Copy Holder note has been reviewed by physician. Signing provider agrees with the documented findings, assessment, and plan of care. Objective - Vital Signs Vital signs: Vital Signs Temp 98.2 F 06/07/22 08:29 Pulse 103 H 06/07/22 11:15 Resp 16 06/07/22 11:15 BP 160/86 06/07/22 11:15 Pulse Ox 98 06/07/22 11:15 FiO2 Intake & Output 06/06/22 06/07/22 06/07/22 18:59 06:59 18:59 Intake Total 720 250 Balance 720 250 Intake: IV 10 Invasive Line 1 10 Oral 720 240 Other: Voiding Method Toilet Toilet Toilet # Voids 2 2 # Bowel Movements 2 1 - Labs CBC & Chem 7: 06/07/22 08:31 06/07/22 08:31 Labs: Abnormal Lab Results - Last 24 Hours (Table) 06/03/22 06/07/22 06/07/22 Range/Units 01:15 08:31 08:31 RBC 3.58 L (3.80-5.40) m/uL PT (9.0-12.0) sec INR (<1.2) Sodium 136 L (137-145) mmol/L Potassium 3.3 L (3.5-5.1) mmol/L Carbon Dioxide 18 L (22-30) mmol/L Glucose 166 H (74-99) mg/dL Stool Calprotectin 758.6 H (<50) mcg/g 06/07/22 Range/Units 08:31 RBC (3.80-5.40) m/uL PT 24.9 H (9.0-12.0) sec INR 2.5 H (<1.2) Sodium (137-145) mmol/L Potassium (3.5-5.1) mmol/L Carbon Dioxide (22-30) mmol/L Glucose (74-99) mg/dL Stool Calprotectin (<50) mcg/g Microbiology - Last 24 Hours (Table) 06/03/22 01:15 Stool Culture - Final Stool 06/04/22 13:00 Urine Culture - Final Urine,Voided Escherichia coli
[2022-06-07] MEDS ORDERED: WARFARIN 1.5 MG TAB PO ONE (18:00)
[2022-06-08] MEDS: LEVOTHYROXINE 50 MCG TAB PO SCH (06:32)
[2022-06-08] MEDS: CHOLESTYRAMINE (WITH SUGAR) 4 GM PACKET PO SCH ×2 (07:55→18:16)
[2022-06-08] MEDS: VANCOMYCIN 125 MG CAPSULE PO SCH ×4 (07:55→22:24)
[2022-06-08] MEDS: POTASSIUM CHLORIDE ER 20 MEQ TAB.ER PO SCH (07:56)
[2022-06-08] MEDS: METOPROLOL TARTRATE 50 MG TAB PO SCH ×2 (07:56→22:24)
[2022-06-08] MEDS: FAMOTIDINE 20 MG TAB PO SCH (07:56)
--- NOTE | 2022-06-08 10:05 | P.PN ---
Subjective Progress Note Date: 06/06/22 This is a pleasant 87 years old female with past medical history of atrial fibrillation on warfarin and hypertension, hypothyroidism, asthma and osteoarthritis Patient presents because of diarrhea for about one week, getting progressive gradually. Was once a week currently every 2-3 hours. She is complaining of from also abdominal cramps, mild to moderate, and the left side of the abdomen, going across the abdomen. With no nausea vomiting. No chest pain or dyspnea or headache or weakness or numbness. No urgency or dysuria or fever. She feels generally weak No smoking or alcohol. Vitas looks stable and patient is afebrile. CBC is unremarkable with no leukocytosis. Hemoglobin 10.1. 136, potassium 2.1 Creatinine 0.7. Coronavirus not detected EKG showing atrial fibrillation with RVR at 107 In the emergency room received metoprolol, potassium replacement and normal saline 06/05/2022 Patient is lying in the bed. Awake alert and oriented 3 feels weak. No compressive chest pain or shortness breath. No complaints of Abdominal pain. Patient is still having loose watery diarrhea. Tolerating minimal oral intake. Potassium is being very low. 2.6 as is being replaced. Otherwise patient is on vancomycin by mouth for C. diff colitis. Patient has been afebrile. No cough or sputum production. 06/06/2022 Patient is currently lying in bed. Awake alert oriented 3. Still having diarrhea. No nausea or vomiting. Tolerating oral diet. Potassium level improved to 3.1 today. Afebrile. No cough or sputum production. No headache or dizziness or lightheadedness. Laboratory data WBC 6.8 hemoglobin 11.1 and platelets 189 Sodium 138 potassium 3.1 chloride 104 BUN 17 creatinine 0.64 and calcium 8.2. General surgery is on board. Current medications reviewed. Objective - Vital Signs Vital signs: Vital Signs Temp 98.4 F 06/06/22 20:00 Pulse 98 06/06/22 20:00 Resp 12 06/06/22 20:00 BP 159/70 06/06/22 20:00 Pulse Ox 96 06/06/22 20:00 FiO2 Intake & Output 06/06/22 06/06/22 06/07/22 06:59 18:59 06:59 Intake Total 720 Balance 720 Intake: Oral 720 Other: Voiding Method Toilet Toilet # Voids 8 2 1 # Bowel Movements 8 2 - Exam GENERAL: The patient is alert and oriented x3, not in any acute distress. Well developed, well nourished. HEENT: Pupils are round and equally reacting to light. EOMI. No scleral icterus. No conjunctival pallor. Normocephalic, atraumatic. No pharyngeal erythema. No th yromegaly. CARDIOVASCULAR: S1 and S2 present. No murmurs, rubs, or gallops. PULMONARY: Chest is clear to auscultation, no wheezing or crackles. ABDOMEN: Soft, nontender, nondistended, normoactive bowel sounds. No palpable organomegaly. MUSCULOSKELETAL: No joint swelling or deformity. EXTREMITIES: No cyanosis, clubbing, or pedal edema. NEUROLOGICAL: Gross neurological examination did not reveal any focal deficits. SKIN: No rashes. no petechiae. - Labs CBC & Chem 7: 06/07/22 08:31 06/07/22 08:31 Labs: Abnormal Lab Results - Last 24 Hours (Table) 06/06/22 06/06/22 06/06/22 Range/Units 08:24 08:24 08:24 RBC 3.38 L (3.80-5.40) m/uL Hgb 11.1 L (11.4-16.0) gm/dL Hct 33.6 L (34.0-46.0) % PT 31.0 H (9.0-12.0) sec INR 3.1 H (<1.2) Potassium 3.1 L (3.5-5.1) mmol/L Glucose 114 H (74-99) mg/dL Calcium 8.2 L (8.4-10.2) mg/dL Microbiology - Last 24 Hours (Table) 06/04/22 13:00 Urine Culture - Final Urine,Voided Escherichia coli 06/03/22 01:15 Stool Culture - Preliminary Stool Assessment and Plan Assessment: Diarrhea due to Acute Cdiff colitis Severe hypokalemia Chronic atrial fibrillation on warfarin Hypertension Hypothyroidism History of asthma, not an active issue History of osteoarthritis Plan: This is a pleasant 87 years old female with acute gastroenteritis Continue with IV fluids. Patient still having diarrhea. Monitor electrolytes and replace per protocol especially potassium and magnesium f/w stool studies Labs and medication were reviewed. DVT and GI prophylaxis. DVT prophylaxis: Subcutaneous heparin GI Prophylaxis: Pepcid PT/OT: Pending Prognosis is guarded Time with Patient: Greater than 30
--- NOTE | 2022-06-08 10:08 | P.PN ---
Subjective Progress Note Date: 06/07/22 This is a pleasant 87 years old female with past medical history of atrial fibrillation on warfarin and hypertension, hypothyroidism, asthma and osteoarthritis Patient presents because of diarrhea for about one week, getting progressive gradually. Was once a week currently every 2-3 hours. She is complaining of from also abdominal cramps, mild to moderate, and the left side of the abdomen, going across the abdomen. With no nausea vomiting. No chest pain or dyspnea or headache or weakness or numbness. No urgency or dysuria or fever. She feels generally weak No smoking or alcohol. Vitas looks stable and patient is afebrile. CBC is unremarkable with no leukocytosis. Hemoglobin 10.1. 136, potassium 2.1 Creatinine 0.7. Coronavirus not detected EKG showing atrial fibrillation with RVR at 107 In the emergency room received metoprolol, potassium replacement and normal saline 06/05/2022 Patient is lying in the bed. Awake alert and oriented 3 feels weak. No compressive chest pain or shortness breath. No complaints of Abdominal pain. Patient is still having loose watery diarrhea. Tolerating minimal oral intake. Potassium is being very low. 2.6 as is being replaced. Otherwise patient is on vancomycin by mouth for C. diff colitis. Patient has been afebrile. No cough or sputum production. 06/06/2022 Patient is currently lying in bed. Awake alert oriented 3. Still having diarrhea. No nausea or vomiting. Tolerating oral diet. Potassium level improved to 3.1 today. Afebrile. No cough or sputum production. No headache or dizziness or lightheadedness. Laboratory data WBC 6.8 hemoglobin 11.1 and platelets 189 Sodium 138 potassium 3.1 chloride 104 BUN 17 creatinine 0.64 and calcium 8.2. General surgery is on board. 06/07/2022 Patient is a MedSurg unit. Awake alert oriented 3. No cough is from rectum. Still having diarrhea last night. No diarrhea since morning. No abdominal pain. No nausea vomiting. No cough or sputum production. Sodium level CXXXVI and potassium improved to 3.3. WBC 7.5 hemoglobin 11.5 and platelets 208 Urine culture showed E. coli and patient was started on ceftriaxone also. Anticipate discharge in the next 24-48 hours with improvement in diarrhea. Current medications reviewed. Objective - Vital Signs Vital signs: Vital Signs Temp 98.3 F 06/07/22 20:17 Pulse 101 H 06/07/22 20:17 Resp 18 06/07/22 20:17 BP 144/75 06/07/22 20:17 Pulse Ox 99 06/07/22 20:17 FiO2 Intake & Output 06/07/22 06/07/22 06/08/22 06:59 18:59 06:59 Intake Total 250 Balance 250 Intake: IV 10 Invasive Line 1 10 Oral 240 Other: Voiding Method Toilet Toilet # Voids 2 2 # Bowel Movements 1 - Exam GENERAL: The patient is alert and oriented x3, not in any acute distress. Well developed, well nourished. HEENT: Pupils are round and equally reacting to light. EOMI. No scleral icterus. No conjunctival pallor. Normocephalic, atraumatic. No pharyngeal erythema. No thyromegaly. CARDIOVASCULAR: S1 and S2 present. No murmurs, rubs, or gallops. PULMONARY: Chest is clear to auscultation, no wheezing or crackles. ABDOMEN: Soft, nontender, nondistended, normoactive bowel sounds. No palpable organomegaly. MUSCULOSKELETAL: No joint swelling or deformity. EXTREMITIES: No cyanosis, clubbing, or pedal edema. NEUROLOGICAL: Gross neurological examination did not reveal any focal deficits. SKIN: No rashes. no petechiae. - Labs CBC & Chem 7: 06/07/22 08:31 06/07/22 08:31 Labs: Abnormal Lab Results - Last 24 Hours (Table) 06/03/22 06/07/22 06/07/22 Range/Units 01:15 08:31 08:31 RBC 3.58 L (3.80-5.40) m/uL PT (9.0-12.0) sec INR (<1.2) Sodium 136 L (137-145) mmol/L Potassium 3.3 L (3.5-5.1) mmol/L Carbon Dioxide 18 L (22-30) mmol/L Glucose 166 H (74-99) mg/dL Stool Calprotectin 758.6 H (<50) mcg/g 06/07/22 Range/Units 08:31 RBC (3.80-5.40) m/uL PT 24.9 H (9.0-12.0) sec INR 2.5 H (<1.2) Sodium (137-145) mmol/L Potassium (3.5-5.1) mmol/L Carbon Dioxide (22-30) mmol/L Glucose (74-99) mg/dL Stool Calprotectin (<50) mcg/g Microbiology - Last 24 Hours (Table) 06/03/22 01:15 Stool Culture - Final Stool Assessment and Plan Assessment: Diarrhea due to Acute Cdiff colitis Severe hypokalemia Chronic atrial fibrillation on warfarin Hypertension Hypothyroidism History of asthma, not an active issue History of osteoarthritis Plan: This is a pleasant 87 years old female with acute gastroenteritis Continue with IV fluids. Patient still having diarrhea. Continue with Cholestyramine Monitor electrolytes and replace per protocol especially potassium and magnesium stool cx negative Current Coumadin dosing Labs and medication were reviewed. DVT and GI prophylaxis. DVT prophylaxis: Subcutaneous heparin GI Prophylaxis: Pepcid PT/OT: Pending Prognosis is guarded Time with Patient: Greater than 30
[2022-06-08 10:51] LABS: Basophils # (A) 0.04 X 10*3/uL (0.00-0.10); Basophils % (A) 0.6 %; Eosinophils # (A) 0.07 X 10*3/uL (0.04-0.35); HCT 31.9 % (37.2-46.3); HGB 10.5 g/dL (12.0-15.0); Immature Grans, Automated 2.2 %; Lymphocytes # (A) 1.26 X 10*3/uL (0.90-5.00); Lymphocytes % (A) 18.5 %; MCH 32.1 pg (27.0-32.0); MCHC 32.9 g/dL (32.0-37.0); MCV 97.6 fL (80.0-97.0); Mean Platelet Volume 9.9 fL (9.5-12.2); Monocytes # (A) 0.83 X 10*3/uL (0.20-1.00); Monocytes % (A) 12.2 %; NRBC Per 100 WBC 0 /100 WBCS (0.0-0.0); Neutrophils # (A) 4.47 X 10*3/uL (1.80-7.70); Neutrophils % (A) 65.5 %; Platelet Count 207 X 10*3/uL (140-440); RBC 3.27 X 10*6/uL (4.10-5.20); RDW 15.9 % (11.5-14.5); WBC 6.82 X 10*3/uL (4.50-10.00)
[2022-06-08 11:10] LABS: African American GFR (CKD) 83.8 (60.0-200.0); Anion Gap 13.5 mmol/L (10.00-18.00); BUN/Creat Ratio 14.67 Ratio (12.00-20.00); Blood Urea Nitrogen 10.8 mg/dL (9.0-27.0); Calcium 8.8 mg/dL (8.7-10.3); Carbon Dioxide 19.3 mmol/L (20.0-27.5); Non-African American GFR(CKD) 72.3 (60.0-200.0); Potassium 3.6 mmol/L (3.5-5.5)
--- NOTE | 2022-06-08 11:24 | P.PN ---
Subjective Progress Note Date: 06/08/22 CHIEF COMPLAINT: C. diff colitis HISTORY OF PRESENT ILLNESS: Patient reports starting to have loose stools again. He had she had 2 loose stools this morning. She denies abdominal pain. Denies any nausea or vomiting. Afebrile. WBC is 6.8 to hemoglobin 10 point 6:55 sodium is 136 potassium is 3.6 creatinine 0.7 stool culture negative Patient seen and examined with Dr. Fried PHYSICAL EXAM: VITAL SIGNS: Reviewed. GENERAL: Well-developed in no acute distress. HEENT: No sclera icterus. Extraocular movements grossly intact. Moist buccal mucosa. Head is atraumatic, normocephalic. ABDOMEN: Soft. Nondistended. Nontender. NEUROLOGIC: Alert and oriented. Cranial nerves II through XII grossly intact. ASSESSMENT: 1. C. diff colitis 2. Hypokalemia improved PLAN: -Continue oral vancomycin for C. diff colitis -Continue supportive care -No surgical intervention planned Physician Blue Line Hanger note has been reviewed by physician. Signing provider agrees with the documented findings, assessment, and plan of care. Objective - Vital Signs Vital signs: Vital Signs Temp 98.4 F 06/08/22 08:00 Pulse 72 06/08/22 08:00 Resp 18 06/08/22 08:00 BP 146/82 06/08/22 08:00 Pulse Ox 100 06/08/22 08:00 FiO2 Intake & Output 06/07/22 06/08/22 06/08/22 18:59 06:59 18:59 Intake Total 250 Balance 250 Intake: IV 10 Invasive Line 1 10 Oral 240 Other: Voiding Method Toilet Toilet Toilet # Voids 2 2 # Bowel Movements 1 - Labs CBC & Chem 7: 06/08/22 07:38 06/08/22 07:38 Labs: Abnormal Lab Results - Last 24 Hours (Table) 06/03/22 06/08/22 06/08/22 Range/Units 01:15 07:38 07:38 RBC 3.27 L (4.10-5.20) X 10*6/uL Hgb 10.5 L (12.0-15.0) g/dL Hct 31.9 L (37.2-46.3) % MCV 97.6 H (80.0-97.0) fL MCH 32.1 H (27.0-32.0) pg RDW 15.9 H (11.5-14.5) % Immature Gran # 0.15 H (0.00-0.04) X 10*3/uL Carbon Dioxide 19.3 L (20.0-27.5) mmol/L Glucose 127 H (70-110) mg/dL Stool Calprotectin 758.6 H (<50) mcg/g Microbiology - Last 24 Hours (Table) 06/03/22 01:15 Stool Culture - Final Stool
[2022-06-08 11:55] LABS: INR 1.89 (0.90-1.11); Prothrombin Time 20.2 sec (9.9-11.9)
--- NOTE | 2022-06-08 12:04 | CDI ---
Documentation Clarification Form Date: 06/08/2022 11:51:44 AM From: Krystal ColungaBERRY power, CCDS Admit Date: 06/03/2022 07:24:00 PM Patient Name: Fadumo Lindsey Visit Number: [id number] Discharge Date: ATTENTION: The Clinical Documentation Specialists (CDI) and [facility] Coding Staff appreciate your assistance in clarifying documentation. Please respond to the clarification below the line at the bottom and electronically sign. The CDI & [facility] Coding staff will review the response and follow-up if needed. Please note: Queries are made part of the Legal Health Record. If you have any questions, please contact the author of this message via ITS. Dr. Jeremi Hobson: The patient was admitted on 06/03 with C Diff Colitis. A urine culture was done 06/05, finalized w/E Coli on 06/06. Per the 06/07 Medical Management Progress Note: Urine culture showed E Coli, patient was started on Ceftriaxone also. Additional clarification regarding the positive urine culture is requested. History/Risk Factors per the 06/04 H/P: Atrial Fibrillation on Warfarin, Hypertension, Hypothyroidism, Asthma, Osteoarthritis, Aortic regurgitation, DJD, C Diff infection 10/2014. Clinical Indicators: Presented to the ED on 06/03 with Weakness and diarrhea. Completed a course of antibiotics a week ago and previously had Clostridium. Admitted with Hypokalemia, Dehydration. H/P Addendum: C Diff test came back positive, started oral Vancomycin, requested surgical consult to rule out fulminant colitis, less likely clinically. 06/03 VS: T 98.2, P 93, 114; R 16, BP 128/81, PO 96 RA, BMI: 21.7 06/03 Stool Culture: final: C Diff Positive. 06/04 UA: Cloudy, 1+ Protein, Moderate Blood, Large Esterase, RBC 23, WBC >182. 06/04 Urine Culture: final: E coli. Treatment 06/03: Bladder Scan, IV Na Chl 500 mls @ 1000 mls/hr q30M 06/04: po Vancomycin 250 mg QID. 06/05: IV Kcl 100 mls @ 50 mls/hr x1, po Questran 4 gm BID 06/07: IV Rocephin 50 mls @ 100 mls/hr q24H Please clarify if there is an additional diagnosis: [ x ] UTI, Present on Admission [ ] UTI, Not Present on Admission [ ] Positive Urine Culture related to other, please specify: [ ] Other, please specify [ ] Unable to determine (Template Last Revised: October 2020) MTDD
[2022-06-08] MEDS ORDERED: WARFARIN 3 MG TAB PO ONE (18:00)
[2022-06-09] MEDS: LEVOTHYROXINE 50 MCG TAB PO SCH (06:25)
[2022-06-09 08:32] VITALS: BP 156/90; TEMP 98.6
[2022-06-09 10:40] LABS: Basophils # (A) 0.05 X 10*3/uL (0.00-0.10); Basophils % (A) 0.6 %; Eosinophils # (A) 0.11 X 10*3/uL (0.04-0.35); Eosinophils % (A) 1.4 %; HCT 31.3 % (37.2-46.3); HGB 10.4 g/dL (12.0-15.0); Immature Grans, Automated 3.5 %; Lymphocytes # (A) 1.34 X 10*3/uL (0.90-5.00); Lymphocytes % (A) 17.2 %; MCH 32.4 pg (27.0-32.0); MCHC 33.2 g/dL (32.0-37.0); MCV 97.5 fL (80.0-97.0); Monocytes # (A) 1.01 X 10*3/uL (0.20-1.00); NRBC Per 100 WBC 0 /100 WBCS (0.0-0.0); Neutrophils # (A) 5.01 X 10*3/uL (1.80-7.70); Neutrophils % (A) 64.3 %; Platelet Count 212 X 10*3/uL (140-440); RBC 3.21 X 10*6/uL (4.10-5.20); RDW 15.9 % (11.5-14.5); WBC 7.79 X 10*3/uL (4.50-10.00)
[2022-06-09 10:42] VITALS: PULSE 100
[2022-06-09 10:56] LABS: African American GFR (CKD) 74.5 (60.0-200.0); Anion Gap 9.5 mmol/L (10.00-18.00); BUN/Creat Ratio 14.3 Ratio (12.00-20.00); Blood Urea Nitrogen 11.6 mg/dL (9.0-27.0); Calcium 8.7 mg/dL (8.7-10.3); Carbon Dioxide 22.4 mmol/L (20.0-27.5); Non-African American GFR(CKD) 64.3 (60.0-200.0); Potassium 3.9 mmol/L (3.5-5.5)
[2022-06-09] MEDS: METOPROLOL TARTRATE 50 MG TAB PO SCH (11:10)
[2022-06-09] MEDS: FAMOTIDINE 20 MG TAB PO SCH (11:10)
[2022-06-09] MEDS: CHOLESTYRAMINE (WITH SUGAR) 4 GM PACKET PO SCH (11:10)
[2022-06-09] MEDS: VANCOMYCIN 125 MG CAPSULE PO SCH (11:10)
[2022-06-09 12:17] LABS: INR 1.78 (0.90-1.11)
[2022-06-09 12:21] VITALS: RESP 14
[2022-06-09 13:01] VITALS: BMI 21.7
--- NOTE | 2022-06-09 13:21 | P.PN ---
Subjective Progress Note Date: 06/09/22 CHIEF COMPLAINT: C. diff colitis HISTORY OF PRESENT ILLNESS: Patient reports having a formed bowel movement this morning. Denies abdominal pain. Denies any nausea vomiting. Tolerating diet. WBC 7.79 potassium 3.9 Patient seen and examined with Dr. Fried PHYSICAL EXAM: VITAL SIGNS: Reviewed. GENERAL: Well-developed in no acute distress. HEENT: No sclera icterus. Extraocular movements grossly intact. Moist buccal mucosa. Head is atraumatic, normocephalic. ABDOMEN: Soft. Nondistended. Nontender. NEUROLOGIC: Alert and oriented. Cranial nerves II through XII grossly intact. ASSESSMENT: 1. C. diff colitis 2. Hypokalemia improved PLAN: -Continue oral vancomycin for C. diff colitis -Continue supportive care -No surgical intervention planned -Patient is stable for discharge from surgical standpoint Physician Fashion Artist note has been reviewed by physician. Signing provider agrees with the documented findings, assessment, and plan of care. Objective - Vital Signs Vital signs: Vital Signs Temp 98.6 F 06/09/22 08:00 Pulse 100 06/09/22 10:42 Resp 14 06/09/22 08:17 BP 156/90 06/09/22 08:00 Pulse Ox 97 06/09/22 08:00 FiO2 Intake & Output 06/08/22 06/09/22 06/09/22 18:59 06:59 18:59 Weight 52.163 kg Other: Voiding Method Toilet Toilet Toilet # Voids 9 4 # Bowel Movements 4 1 - Labs CBC & Chem 7: 06/09/22 06:31 06/09/22 06:31 Labs: Abnormal Lab Results - Last 24 Hours (Table) 06/09/22 06/09/22 06/09/22 Range/Units 06:31 06:31 06:31 RBC 3.21 L (4.10-5.20) X 10*6/uL Hgb 10.4 L (12.0-15.0) g/dL Hct 31.3 L (37.2-46.3) % MCV 97.5 H (80.0-97.0) fL MCH 32.4 H (27.0-32.0) pg RDW 15.9 H (11.5-14.5) % Immature Gran # 0.27 H (0.00-0.04) X 10*3/uL Monocytes # 1.01 H (0.20-1.00) X 10*3/uL PT 19.0 H (9.9-11.9) sec INR 1.78 H (0.90-1.11) Sodium 134 L (135-145) mmol/L Anion Gap 9.50 L (10.00-18.00) mmol/L Microbiology - Last 24 Hours (Table) 06/03/22 01:15 Stool Culture - Final Stool
[2022-06-09] MEDS ORDERED: WARFARIN 5 MG TAB PO ONE (18:00)
== END 2022-06-09 13:39 | disposition home health service (06) | DRG 372 ==
LOC: EC 17:13 → 3SCARD 19:24 → 4SSUR 06-07 12:50
PROVIDERS: ADMIT Internal Medicine; ATTEND Internal Medicine
DX: A04.72 Enterocolitis due to Clostridium difficile, not specified as recurrent (principal); I48.20 Chronic atrial fibrillation, unspecified; N39.0 Urinary tract infection, site not specified; E86.0 Dehydration; E87.6 Hypokalemia; E03.9 Hypothyroidism, unspecified; Z20.822 Contact with and (suspected) exposure to COVID-19; I10 Essential (primary) hypertension; I35.1 Nonrheumatic aortic (valve) insufficiency; J45.909 Unspecified asthma, uncomplicated; M19.90 Unspecified osteoarthritis, unspecified site; Z79.899 Other long term (current) drug therapy; Z79.890 Hormone replacement therapy; Z79.01 Long term (current) use of anticoagulants; Z96.652 Presence of left artificial knee joint
CPT/HCPCS: 36415; 71045; 80048; 80076; 81001; 83605; 83630; 83735; 83993; 84132; 85025; 85027; 85610; 87045; 87046; 87077; 87086; 87186; 87324; 87635; 93005; 96360; 96361; 99285

== ENCOUNTER 2022-06-17 08:21 | Observation (INO) | payer MEDICARE ==
[2022-06-17] MEDS ORDERED: SODIUM CHLORIDE 0.9% 1,000 ML IV STA (08:37)
[2022-06-17] MEDS ORDERED: DIPH,PERTUS(ACELL)TETVAC-LF 0.5 ML VIAL IM ONE (08:38)
[2022-06-17] MEDS ORDERED: LIDOCAINE 1% INJ 10MG/ML (20 ML MDV) SQ ONE (08:39)
[2022-06-17] MEDS ORDERED: METOPROLOL TARTRATE 50 MG TAB PO STA (09:10)
--- NOTE | 2022-06-17 09:16 | ED ---
General Adult HPI - General Chief complaint: Wound/Laceration Stated complaint: Syncope, Fall Time Seen by Provider: 06/17/22 08:30 Source: patient, family Mode of arrival: wheelchair Limitations: no limitations - History of Present Illness Initial comments: Patient is an 87-year-old female presenting with chief complaint of syncope. Patient states that this morning she passed out after an episode of diarrhea. Patient is currently on warfarin, did fall to the floor and likely hit her head. She lives alone, no one else was there to witness fall. She has a laceration to the right forearm. Patient was recently treated here for C. diff. Patient s tates that her diarrhea had improved until yesterday. She denies any fever, chills, abdominal pain, chest pain, difficulty breathing, neck pain, headache, vision or hearing changes, dizziness, limb pain. - Related Data Home Medications Medication Instructions Recorded Confirmed Levothyroxine Sodium [Synthroid] 50 mcg PO DAILY 03/06/14 06/17/22 Metoprolol Tartrate [Lopressor] 50 mg PO BID 06/17/16 06/17/22 Losartan/Hydrochlorothiazide 1 tab PO DAILY 06/19/16 06/17/22 [Losartan-Hctz 100-25 mg Tab] Warfarin [Coumadin] 5 mg PO SUMOTUTHFRSA@2100 06/19/16 06/17/22 Metoprolol Tartrate 25 mg PO DAILY@1200 11/08/21 06/17/22 Warfarin [Coumadin] 7.5 mg PO WE@2100 06/03/22 06/17/22 Allergies Allergy/AdvReac Type Severity Reaction Status Date / Time No Known Allergies Allergy Verified 06/17/22 08:25 Review of Systems ROS Statement: Those systems with pertinent positive or pertinent negative responses have been documented in the HPI. ROS Other: All systems not noted in ROS Statement are negative. Past Medical History Past Medical History: Atrial Fibrillation, Asthma, Hypertension, Osteoarthritis (OA), Thyroid Disorder Additional Past Medical History / Comment(s): Aortic regurgitation, hypothyroid, DJD History of Any Multi-Drug Resistant Organisms: C-DIFF Date of last positivie culture/infection: 11/16/2014 MDRO Source:: stool Past Surgical History: Hysterectomy, Joint Replacement, Orthopedic Surgery Additional Past Surgical History / Comment(s): BILATERAL CATARACTS (2013) TOTAL LEFT KNEE REPLACEMENT, R hip IT nailing, colonoscopy, bronchoscopy Past Anesthesia/Blood Transfusion Reactions: No Reported Reaction Past Psychological History: No Psychological Hx Reported Smoking Status: Never smoker Past Alcohol Use History: Rare Past Drug Use History: None Reported - Past Family History Father Family Medical History: Cancer Additional Family Medical History / Comment(s): unsure. "Possibly bone cancer," per patient. Sister(s) Family Medical History: Cancer Additional Family Medical History / Comment(s): Lymphoma Brother(s) Family Medical History: Cancer Additional Family Medical History / Comment(s): Melanoma General Exam Limitations: no limitations General appearance: alert, in no apparent distress Head exam: Present: atraumatic, normocephalic, normal inspection Eye exam: Present: normal appearance, PERRL, EOMI. Absent: scleral icterus, conjunctival injection, periorbital swelling Neck exam: Present: normal inspection Respiratory exam: Present: normal lung sounds bilaterally. Absent: respiratory distress, wheezes, rales, rhonchi, stridor Cardiovascular Exam: Present: regular rate, normal rhythm, normal heart sounds. Absent: systolic murmur, diastolic murmur, rubs, gallop, clicks Neurological exam: Present: alert, oriented X3, CN II-XII intact Expanded Patient oriented to: Present: person, place, time Speech: Present: fluid speech Cranial nerves: EOM's Intact: Normal, Facial Sensation: Normal Sensory exam: Upper Extremity Light Touch: Normal, Lower Extremity Light Touch: Normal Motor strength exam: RUE: 5, LUE: 5, RLE: 5, LLE: 5 Eye Response: (4) open spontaneously Motor Response: (6) obeys commands Verbal Response: (5) oriented Randolph Total: 15 Psychiatric exam: Present: normal affect, normal mood Skin exam: Present: warm, dry, normal color. Absent: rash Expanded Type of lesion: Present: laceration Course Vital Signs 06/17/22 06/17/22 06/17/22 08:25 11:00 14:32 Temperature 98.2 F 97.4 F L Pulse Rate 105 H 89 Pulse Rate [ 87 Left Pulse Oximetery] Respiratory 16 18 18 Rate Blood Pressure 153/75 149/79 Blood Pressure 167/86 [Left Arm] O2 Sat by Pulse 96 95 95 Oximetry EKG Findings - EKG Comments: EKG Findings:: Atrial fibrillation with rapid ventricular response rate of 107. QRS duration 104. QT/QTC 320/383. No ST deviation. No acute changes when compared to previous EKG. Procedures - Laceration Laceration #1 Consent Obtained: verbal consent Indication: laceration Site: upper extremity (Right forearm) Size (cm): 5 Description: linear Depth: simple, single layer Anesthetic Used: lidocaine 1%, without epi Anesthesia Technique: local infiltration Amount (mls): 4 Pre-repair: wound explored, irrigated extensively Type of Sutures: nylon Size of Sutures: 4-0 Technique: simple, interrupted Patient Tolerated Procedure: well Laceration #2 Consent Obtained: verbal consent Indication: laceration Site: upper extremity (Right forearm) Size (cm): 4 Description: linear, avulsion Depth: simple, single layer Anesthetic Used: lidocaine 1%, without epi Anesthesia Technique: local infiltration Amount (mls): 4 Pre-repair: wound explored, irrigated extensively Type of Sutures: nylon Size of Sutures: 4-0 Technique: simple, interrupted Patient Tolerated Procedure: well Medical Decision Making - Medical Decision Making Patient is an 87-year-old female who was recently treated at our hospital for C. diff presenting with chief complaint of syncope. Patient states syncope occurred after a large bout of diarrhea this morning. Patient states her diarrhea had been improving, that today she began experiencing severe diarrhea again. No chest pain, shortness of breath, dizziness. On examination there are 2 lacerations to the patient's right forearm. Patient did hit her head and is on warfarin. Physical examination shows no focal neurological deficits. CBC shows no leukocytosis or anemia. Coags are consistent with her anticoagulation. Patient appears dehydrated, BUN of 27. CT of the brain and cervical spine and chest x-ray show no acute process. I spoke with Dr. Maldonado who accepted admission. Patient is agreeable with this plan, she is fearful of going home and symptoms worsening. I discussed this case my attending Dr. Blackman. - Lab Data Result diagrams: 06/17/22 09:10 06/17/22 09:09 Lab Results 06/17/22 06/17/22 06/17/22 Range/Units 09:09 09:10 09:10 WBC 9.5 (3.8-10.6) k/uL RBC 3.83 (3.80-5.40) m/uL Hgb 12.4 (11.4-16.0) gm/dL Hct 37.1 (34.0-46.0) % MCV 96.9 (80.0-100.0) fL MCH 32.4 (25.0-35.0) pg MCHC 33.4 (31.0-37.0) g/dL RDW 14.6 (11.5-15.5) % Plt Count 271 (150-450) k/uL MPV 7.7 Neutrophils % 90 % Lymphocytes % 5 % Monocytes % 3 % Eosinophils % 0 % Basophils % 0 % Neutrophils # 8.6 H (1.3-7.7) k/uL Lymphocytes # 0.5 L (1.0-4.8) k/uL Monocytes # 0.3 (0-1.0) k/uL Eosinophils # 0.0 (0-0.7) k/uL Basophils # 0.0 (0-0.2) k/uL PT 27.1 H (9.0-12.0) sec INR 2.7 H (<1.2) APTT 34.8 H (22.0-30.0) sec Sodium 138 (137-145) mmol/L Potassium 3.7 (3.5-5.1) mmol/L Chloride 99 (98-107) mmol/L Carbon Dioxide 25 (22-30) mmol/L Anion Gap 14 mmol/L BUN 27 H (7-17) mg/dL Creatinine 0.88 (0.52-1.04) mg/dL Est GFR (CKD-EPI)AfAm 68 (>60 ml/min/1.73 sqM) Est GFR (CKD-EPI)NonAf 59 (>60 ml/min/1.73 sqM) Glucose 120 H (74-99) mg/dL POC Glucose (mg/dL) (70-110) mg/dL POC Glu Accounting Instructor ID Calcium 9.4 (8.4-10.2) mg/dL Magnesium 1.6 (1.6-2.3) mg/dL Total Bilirubin 0.7 (0.2-1.3) mg/dL AST 37 H (14-36) U/L ALT 22 (4-34) U/L Alkaline Phosphatase 91 (38-126) U/L Total Protein 7.6 (6.3-8.2) g/dL Albumin 4.3 (3.5-5.0) g/dL Urine Color Urine Appearance (Clear) Urine pH (5.0-8.0) Ur Specific Osgood (1.001-1.035) Urine Protein (Negative) Urine Glucose (UA) (Negative) Urine Ketones (Negative) Urine Blood (Negative) Urine Nitrite (Negative) Urine Bilirubin (Negative) Urine Urobilinogen (<2.0) mg/dL Ur Leukocyte Esterase (Negative) Urine RBC (0-5) /hpf Urine WBC (0-5) /hpf Ur Squamous Epith Cells (0-4) /hpf Urine Mucus (None) /hpf 06/17/22 06/17/22 Range/Units 09:10 09:25 WBC (3.8-10.6) k/uL RBC (3.80-5.40) m/uL Hgb (11.4-16.0) gm/dL Hct (34.0-46.0) % MCV (80.0-100.0) fL MCH (25.0-35.0) pg MCHC (31.0-37.0) g/dL RDW (11.5-15.5) % Plt Count (150-450) k/uL MPV Neutrophils % % Lymphocytes % % Monocytes % % Eosinophils % % Basophils % % Neutrophils # (1.3-7.7) k/uL Lymphocytes # (1.0-4.8) k/uL Monocytes # (0-1.0) k/uL Eosinophils # (0-0.7) k/uL Basophils # (0-0.2) k/uL PT (9.0-12.0) sec INR (<1.2) APTT (22.0-30.0) sec Sodium (137-145) mmol/L Potassium (3.5-5.1) mmol/L Chloride (98-107) mmol/L Carbon Dioxide (22-30) mmol/L Anion Gap mmol/L BUN (7-17) mg/dL Creatinine (0.52-1.04) mg/dL Est GFR (CKD-EPI)AfAm (>60 ml/min/1.73 sqM) Est GFR (CKD-EPI)NonAf (>60 ml/min/1.73 sqM) Glucose (74-99) mg/dL POC Glucose (mg/dL) 106 (70-110) mg/dL POC Glu Accounting Instructor ID Nelia Monteiro Calcium (8.4-10.2) mg/dL Magnesium (1.6-2.3) mg/dL Total Bilirubin (0.2-1.3) mg/dL AST (14-36) U/L ALT (4-34) U/L Alkaline Phosphatase (38-126) U/L Total Protein (6.3-8.2) g/dL Albumin (3.5-5.0) g/dL Urine Color Yellow Urine Appearance Clear (Clear) Urine pH 6.5 (5.0-8.0) Ur Specific Osgood 1.015 (1.001-1.035) Urine Protein Trace H (Negative) Urine Glucose (UA) Negative (Negative) Urine Ketones Negative (Negative) Urine Blood Negative (Negative) Urine Nitrite Negative (Negative) Urine Bilirubin Negative (Negative) Urine Urobilinogen <2.0 (<2.0) mg/dL Ur Leukocyte Esterase Moderate H (Negative) Urine RBC 1 (0-5) /hpf Urine WBC 4 (0-5) /hpf Ur Squamous Epith Cells 4 (0-4) /hpf Urine Mucus Rare H (None) /hpf Disposition Clinical Impression: Syncope, Dehydration Disposition: ADMITTED IP TO THIS [facility] Condition: Fair Time of Disposition: 11:43 Decision to Admit Reason: Admit from EC Decision Date: 06/17/22 Decision Time: 11:43
[2022-06-17 09:28] LABS: Glucose,Whole Blood 106 mg/dL (70-110)
[2022-06-17 09:30] LABS: INR 2.7 (<1.2); Partial Thromboplastin Time 34.8 sec (22.0-30.0); Prothrombin Time 27.1 sec (9.0-12.0)
[2022-06-17 09:31] LABS: Basophils % (A) 0 %; Eosinophils % (A) 0 %; HCT 37.1 % (34.0-46.0); HGB 12.4 gm/dL (11.4-16.0); Lymphocytes # (A) 0.5 k/uL (1.0-4.8); Lymphocytes % (A) 5 %; MCH 32.4 pg (25.0-35.0); MCHC 33.4 g/dL (31.0-37.0); MCV 96.9 fL (80.0-100.0); Mean Platelet Volume 7.7; Monocytes # (A) 0.3 k/uL (0-1.0); Monocytes % (A) 3 %; Neutrophils # (A) 8.6 k/uL (1.3-7.7); Neutrophils % (A) 90 %; Platelet Count 271 k/uL (150-450); RBC 3.83 m/uL (3.80-5.40); RDW 14.6 % (11.5-15.5); WBC 9.5 k/uL (3.8-10.6)
[2022-06-17 09:38] LABS: Albumin 4.3 g/dL (3.5-5.0); Calcium 9.4 mg/dL (8.4-10.2); Magnesium 1.6 mg/dL (1.6-2.3); Potassium 3.7 mmol/L (3.5-5.1); Total Bilirubin 0.7 mg/dL (0.2-1.3); Total Protein 7.6 g/dL (6.3-8.2)
[2022-06-17 10:08] LABS: Appearance,Urine Clear (Clear); Bilirubin,Urine Negative (Negative); Blood,Urine Negative (Negative); Color,Urine Yellow; Glucose,Urine (UA) Negative (Negative); Ketones,Urine Negative (Negative); Leukocyte Esterase,Urine Moderate (Negative); Mucus,Urine Rare /hpf; Nitrite,Urine Negative (Negative); PH, Urine 6.5 (5.0-8.0); Protein,Urine Trace (Negative); RBC,Urine 1 /hpf (0-5); Specific Gravity,Urine 1.015 (1.001-1.035); Squamous Epithelial Cell,Urine 4 /hpf (0-4); Urobilinogen,Urine <2.0 mg/dL (<2.0); WBC,Urine 4 /hpf (0-5)
--- NOTE | 2022-06-17 10:43 | CT ---
EXAMINATION TYPE: CT brain shon sandoval con DATE OF EXAM: 06/17/2022 COMPARISON: NONE HISTORY: Syncopal episode with bowel movement. Fall on thinners with neck pain. CT DLP: 1245.5 mGycm. Automated Exposure Control for Dose Reduction was Utilized. TECHNIQUE: CT scan of the head and cervical spine are performed without contrast. FINDINGS: There is no acute intracranial hemorrhage or midline shift identified. Mild ventricular a nd sulcal prominence. Moderate to severe low-attenuation in the deep and periventricular white matte r. The calvarium is intact. Scleral calculation bilateral globes. Visualized paranasal sinuses are cl ear. Patchy cerumen bilateral extra auditory canals. Cervical spine is visualized in its entirety from C1 through upper thoracic levels and shows severe g rade 1 retrolisthesis C3 on C4 without acute fracture. Prevertebral soft tissue appears within starr l limits. The C1-C2 articulation is within normal limits on the coronal images. There is additional grade 1 anterolisthesis C4 on C5 and of C6 on C7 and grade 1 retrolisthesis C5 on C6. Severe disc sp anna narrowing C3-C4 level is present. Moderate to severe disc space narrowing C5-C6 and C6-C7 levels is seen. Effacement of the anterior thecal sac at C5 level due to posterior position C5 vertebra is n oted. Axial images show multilevel uncovertebral and facet degenerative changes. Thyroid gland is maciel ewhat small in size. Lung apices show no pneumothorax. Ectasia of the visualized aortic arch. Mild al so 5 plaque bilateral carotid bulb level. IMPRESSION: 1. There is no acute fracture or dislocation evident in the cervical spine. Multilevel spondylolisthe sis and degenerative changes present. 2. No acute intracranial hemorrhage or midline shift is seen. Mild diffuse cerebral atrophy and moder ate to advanced chronic small vessel ischemic changes are noted.
--- NOTE | 2022-06-17 10:44 | XR ---
EXAMINATION TYPE: XR chest 2V DATE OF EXAM: 06/17/2022 COMPARISON: Chest x-ray 13 days ago. HISTORY: Syncope and weakness. Fall injury. TECHNIQUE: Frontal and lateral views of the chest are obtained. FINDINGS: There is chronic parenchymal change without suspicious new focal air space opacity, pleura l effusion, or pneumothorax seen. Cardiomegaly is redemonstrated with atherosclerotic thoracic aorta. The osseous structures are intact. IMPRESSION: Cardiomegaly without acute pulmonary process. No significant change from prior.
[2022-06-17] MEDS ORDERED: GELATIN SPONGE,ABSORB (SMALL) 1 EACH SPONGE TOPICAL STA (10:58)
[2022-06-17] MEDS ORDERED: NALOXONE 0.4 MG/ML 1 ML VIAL IV PRN (11:41)
[2022-06-17] MEDS: SODIUM CHLORIDE 0.9% 1,000 ML IV SCH (11:54)
--- NOTE | 2022-06-17 19:05 | US ---
EXAMINATION TYPE: US carotid duplex BILAT DATE OF EXAM: 06/17/2022 COMPARISON: NONE CLINICAL HISTORY: stroke. pt has c-diff and fainted this am, no h/o stroke TECHNIQUE: Carotid duplex ultrasound examination. Indirect Doppler criteria was utilized. FINDINGS: EXAM MEASUREMENTS: RIGHT: Peak Systolic Velocity (PSV) cm/sec ----- Right CCA: 70.0 ----- Right ICA: 94.6 ----- Right ECA: 93.0 ICA/CCA ratio: 1.3 RIGHT: End Diastole cm/sec ----- Right CCA: 0.0 ----- Right ICA: 21.1 ----- Right ECA: 10.3 LEFT: Peak Systolic Velocity (PSV) cm/sec ----- Left CCA: 66.3 ----- Left ICA: 75.0 ----- Left ECA: 58.8 ICA/CCA ratio: 1.1 LEFT: End Diastole cm/sec ----- Left CCA: 53.9 ----- Left ICA: 11.1 ----- Left ECA: 9.4 VERTEBRALS (direction of flow): Right Vertebral: Antegrade Left Vertebral: Antegrade Rhythm: Arrhythmia SCRAPER HAND NOTES: mild homogeneous plaque with no significant stenosis IMPRESSION: There is antegrade flow in the vertebral arteries. The images and measurements suggest less than 25% stenosis in both internal carotid arteries. Criteria for Assigning % of Stenosis / Diameter reduction (Estimation based on the indirect measurements of the internal carotid artery velocities (ICA PSV). 1. Normal (no stenosis)=ICA PSV < 125 cm/s: ratio < 2.0: ICA EDV<40 cm/s. 2. Less than 50% stenosis=ICA PSV < 125 cm/s: ratio < 2.0: ICA EDV<40 cm/s. 3. 50 to 69% stenosis=ICA PSV of 125 to 230 cm/s: ration 2.0 ? 4.0: ICA EDV 40-100 cm/s. 4. Greater than 70% stenosis to near occlusion= ICA PSV > 230 cm/s: ratio > 4.0: ICA EDV > 100 cm/s. 5. Near occlusion= ICA PSV velocities may be low or undetectable: variable ratio and ICA EDV. 6. Total occlusion=unable to detect flow.
[2022-06-17 19:22] LABS: INR 3.1 (<1.2); Prothrombin Time 30.5 sec (9.0-12.0)
[2022-06-17] MEDS: METOPROLOL TARTRATE 50 MG TAB PO SCH (20:39)
[2022-06-17] MEDS ORDERED: WARFARIN 5 MG TAB PO SCH (21:00)
[2022-06-18] MEDS: LEVOTHYROXINE 50 MCG TAB PO SCH (05:45)
[2022-06-18 07:40] LABS: INR 3.3 (<1.2); Prothrombin Time 33.1 sec (9.0-12.0)
[2022-06-18] MEDS: METOPROLOL TARTRATE 50 MG TAB PO SCH ×2 (07:44→20:29)
[2022-06-18] MEDS: SODIUM CHLORIDE 0.9% 1,000 ML IV SCH (07:45)
[2022-06-18] MEDS: LOSARTAN-HCTZ 50-12.5 MG 1 EACH TAB PO SCH (07:45)
[2022-06-18 11:33] LABS: Basophils # (A) 0.03 X 10*3/uL (0.00-0.10); Basophils % (A) 0.5 %; Eosinophils # (A) 0.08 X 10*3/uL (0.04-0.35); Eosinophils % (A) 1.4 %; HCT 31.1 % (37.2-46.3); HGB 10.2 g/dL (12.0-15.0); Immature Grans, Automated 0.7 %; Lymphocytes # (A) 1.17 X 10*3/uL (0.90-5.00); Lymphocytes % (A) 20.6 %; MCH 32.2 pg (27.0-32.0); MCHC 32.8 g/dL (32.0-37.0); MCV 98.1 fL (80.0-97.0); Mean Platelet Volume 9.8 fL (9.5-12.2); Monocytes # (A) 0.58 X 10*3/uL (0.20-1.00); Monocytes % (A) 10.2 %; NRBC Per 100 WBC 0 /100 WBCS (0.0-0.0); Neutrophils # (A) 3.78 X 10*3/uL (1.80-7.70); Neutrophils % (A) 66.6 %; Platelet Count 262 X 10*3/uL (140-440); RBC 3.17 X 10*6/uL (4.10-5.20); RDW 15.6 % (11.5-14.5); WBC 5.68 X 10*3/uL (4.50-10.00)
[2022-06-18 11:55] LABS: Albumin 3.8 g/dL (3.8-4.9); Albumin/Globulin Ratio 1.27 (1.60-3.17); Anion Gap 13.9 mmol/L (10.00-18.00); BUN/Creat Ratio 19.57 Ratio (12.00-20.00); Blood Urea Nitrogen 13.7 mg/dL (9.0-27.0); Calcium 8.5 mg/dL (8.7-10.3); Carbon Dioxide 20.1 mmol/L (20.0-27.5); Non-African American GFR(CKD) 76.8 (60.0-200.0); Potassium 3.1 mmol/L (3.5-5.5); Total Bilirubin 0.4 mg/dL (0.30-1.20); Total Protein 6.8 g/dL (6.2-8.2)
[2022-06-18] MEDS ORDERED: ACETAMINOPHEN TAB 325 MG TAB PO PRN (11:55)
[2022-06-18] MEDS ORDERED: METOPROLOL TARTRATE 25 MG TAB PO SCH (12:00)
[2022-06-18] MEDS ORDERED: Potassium Replacement Protocol 1 EACH MISC MISCELLANE PRN (12:09)
[2022-06-18] MEDS: POTASSIUM CHLORIDE ER 20 MEQ TAB.ER PO SCH ×4 (12:22→21:39)
[2022-06-18] MEDS: CHOLESTYRAMINE (WITH SUGAR) 4 GM PACKET PO SCH ×2 (14:16→17:19)
[2022-06-18] MEDS ORDERED: WARFARIN 2.5 MG TAB PO ONE (18:00)
[2022-06-18] MEDS: VANCOMYCIN 125 MG CAPSULE PO SCH (21:39)
--- NOTE | 2022-06-18 22:19 | P.CONS ---
History of Present Illness - Reason for Consult Consult date: 06/18/22 - History of Present Illness Patient is a 87-year old female apparently was recently admitted to the hospital with an episode of diarrhea and concern for possible C. difficile however I do not see the documentation, patient is now presenting back to the hospital complaining of a syncopal episode mention patient did passed out the morning of presentation to the hospital while having an episode of diarrhea patient really complaining of increasing episode of diarrhea for the last few days, patient mention she did have multiple episodes of loose stools per day patient denies any blood or mucus in the stool. Denies having any abdominal pain no nausea no vomiting no fever no chills and no recent antibiotic exposure patient on presentation to the hospital was afebrile he did have low-grade fever of 99.1 F last evening, patient did have a normal white count with a left shift creatinine has been normal BUN was slightly elevated liver enzymes are normal urine has been negative patient did have a CT of [place] came back negative patient did have a chest x-ray cardiomegaly without acute cardiopulmonary proces s patient was started on Questran infectious disease was consulted for further management of antibiotic therapy and concern for C. difficile colitis Past Medical History Past Medical History: Atrial Fibrillation, Asthma, Hypertension, Osteoarthritis (OA), Thyroid Disorder Additional Past Medical History / Comment(s): Aortic regurgitation, hypothyroid, DJD History of Any Multi-Drug Resistant Organisms: C-DIFF Year Discovered:: 11/16/2014 MDRO Source:: stool Past Surgical History: Hysterectomy, Joint Replacement, Orthopedic Surgery Additional Past Surgical History / Comment(s): BILATERAL CATARACTS (2013) TOTAL LEFT KNEE REPLACEMENT, R hip IT nailing, colonoscopy, bronchoscopy Past Anesthesia/Blood Transfusion Reactions: No Reported Reaction Past Psychological History: No Psychological Hx Reported Smoking Status: Never smoker Past Alcohol Use History: Rare Past Drug Use History: None Reported - Past Family History Father Family Medical History: Cancer Additional Family Medical History / Comment(s): unsure. "Possibly bone cancer," per patient. Sister(s) Family Medical History: Cancer Additional Family Medical History / Comment(s): Lymphoma Brother(s) Family Medical History: Cancer Additional Family Medical History / Comment(s): Melanoma Medications and Allergies Home Medications Medication Instructions Recorded Confirmed Type Levothyroxine Sodium [Synthroid] 50 mcg PO DAILY 03/06/14 06/17/22 History Metoprolol Tartrate [Lopressor] 50 mg PO BID 06/17/16 06/17/22 History Losartan/Hydrochlorothiazide 1 tab PO DAILY 06/19/16 06/17/22 History [Losartan-Hctz 100-25 mg Tab] Warfarin [Coumadin] 5 mg PO SITATBRITTNEY@2100 06/19/16 06/17/22 History Metoprolol Tartrate 25 mg PO DAILY@1200 11/08/21 06/17/22 History Warfarin [Coumadin] 7.5 mg PO WE@2100 06/03/22 06/17/22 History Allergies Allergy/AdvReac Type Severity Reaction Status Date / Time No Known Allergies Allergy Verified 06/17/22 08:25 Physical Exam Vitals: Vital Signs Temp Pulse Resp BP BP BP BP 06/18/22 14:25 97.9 F 92 18 130/79 06/18/22 08:00 97.7 F 110 H 18 163/79 06/18/22 02:14 98.2 F 92 17 143/83 06/17/22 19:42 99.1 F 99 18 137/79 06/17/22 17:16 162/107 161/94 172/93 Pulse Ox 06/18/22 14:25 99 06/18/22 08:00 98 06/18/22 02:14 93 L 06/17/22 19:42 99 06/17/22 17:16 Intake and Output 06/17/22 06/18/22 06/18/22 22:59 06:59 14:59 Other: Voiding Method Toilet # Voids 1 2 1 Results CBC & Chem 7: 06/18/22 07:20 06/18/22 18:29 Labs: Abnormal Lab Results - Last 24 Hours (Table) 06/17/22 06/18/22 06/18/22 Range/Units 17:24 07:20 07:20 RBC 3.17 L (4.10-5.20) X 10*6/uL Hgb 10.2 L (12.0-15.0) g/dL Hct 31.1 L (37.2-46.3) % MCV 98.1 H (80.0-97.0) fL MCH 32.2 H (27.0-32.0) pg RDW 15.6 H (11.5-14.5) % PT 30.5 H (9.0-12.0) sec INR 3.1 H (<1.2) Potassium 3.1 L (3.5-5.5) mmol/L Calcium 8.5 L (8.7-10.3) mg/dL Albumin/Globulin Ratio 1.27 L (1.60-3.17) g/dL 06/18/22 Range/Units 07:20 RBC (4.10-5.20) X 10*6/uL Hgb (12.0-15.0) g/dL Hct (37.2-46.3) % MCV (80.0-97.0) fL MCH (27.0-32.0) pg RDW (11.5-14.5) % PT 33.1 H (9.0-12.0) sec INR 3.3 H (<1.2) Potassium (3.5-5.5) mmol/L Calcium (8.7-10.3) mg/dL Albumin/Globulin Ratio (1.60-3.17) g/dL Assessment and Plan Plan: 1patient presented to hospital with intractable diarrhea in this patient with a questionable recent history of C. difficile colitis concerning for possible recurrence or relapse of C. difficile colitis however stool C. difficile came back negative on admission. 2we will check C. difficile PCR and also check stool culture. 3we will oral add oral vancomycin if stool for C. difficile PCR came back po sitive 4patient has been started to increase her probiotic and yogurt intake We will follow on clinical condition and cultures to further adjust medication if needed Thank you for this consultation will follow this patient along with you Time with Patient: Greater than 30
--- NOTE | 2022-06-19 00:19 | HP ---
HISTORY AND PHYSICAL CHIEF COMPLAINT: Syncope and fall. HISTORY OF PRESENT ILLNESS: This 87-year-old woman with a past medical history of multiple medical problems, recently admitted with acute C. difficile colitis. The patient improved significantly, but the patient had episode of diarrhea. The patient had a syncopal episode and fell to the floor, and the patient was taken to [facility] and was admitted for further evaluation and treatment. There is no history of any fever, rigors, or chills at this time. The patient is mildly dehydrated. PAST MEDICAL HISTORY: Recent C. difficile colitis, atrial fibrillation. The rest of the history reviewed. Rest of the chart also reviewed. HOME MEDICATIONS: Reviewed and include Coumadin. Doses and rest of medications reviewed. ALLERGIES: None. FAMILY HISTORY: History of cancer. SOCIAL HISTORY: No history of smoking. REVIEW OF SYSTEMS: A 14-point review of systems is negative except as mentioned earlier. PHYSICAL EXAMINATION: VITAL SIGNS: Pulse 87, blood pressure 169/80, respirations 18. HEENT: Conjunctivae normal. Oral mucosa dry. NECK: No JVD. CARDIOVASCULAR: S1, S2 muffled. RESPIRATIONS: Breath sounds diminished at the bases. No rhonchi. No crackles. ABDOMEN: Soft, obese, nontender. No mass palpable. LEGS: No edema. No swelling. NERVOUS SYSTEM: No focal deficits. SKIN: ntd JOINTS: No active LABORATORY DATA: INR 2.7. ASSESSMENT: 1. Acute Clostridium difficile colitis. 2. Syncope, possibly secondary to dehydration. 3. Atrial fibrillation. 4. Multiple medical issues. RECOMMENDATIONS AND DISCUSSION: In this 87-year-old woman, who presented with multiple complex medical issues, we will monitor the patient closely. I would recommend repeat C. difficile testing and we will initiate vancomycin. Otherwise, I would also recommend Infectious Disease evaluation as well Cardiology evaluation also to complete the workup. The basic evaluation including CAT scan of the brain, which I reviewed, which were within normal limits at this time. MMODL / IJN: [id number] / MTDD
--- NOTE | 2022-06-19 01:19 | CONS ---
CONSULTATION CHIEF COMPLAINT: Syncope. HISTORY OF PRESENT ILLNESS: This is an 87-year-old lady, who presented to hospital having had an episode of syncope. She has history of atrial fibrillation and hypertension. She has had multiple episodes of diarrhea following which she had a syncopal event, probably related to the diarrhea and intravascular volume depletion and hypotension. Cardiology had been consulted for the same. At the time of my evaluation this morning, she appears comfortable at rest and is free of symptoms. Her INR is elevated at 3.3. She is currently on 2.5 mg of Coumadin. Please monitor her INRs carefully. She remains in atrial fibrillation with somewhat of a poorly controlled ventricular rate this morning. PAST MEDICAL HISTORY: Significant for persistent atrial fibrillation and hypertension along with hypothyroidism. MEDICATIONS: Include: 1. Coumadin. 2. Lopressor. 3. Metoprolol. 4. Losartan-hydrochlorothiazide. 5. Levothyroxine. ALLERGIES: No known drug allergies. FAMILY HISTORY: Negative for premature coronary artery disease. SOCIAL HISTORY: Negative for current smoking, EtOH abuse, or drug abuse. REVIEW OF SYSTEMS: review of systems has been performed. Pertinent are as documented. PHYSICAL EXAMINATION: GENERAL: Comfortable at rest. VITAL SIGNS: Stable. CHEST: Chest exam reveals good air entry bilaterally. HEART EXAM: Reveals first and second heart sounds, irregular rhythm and a systolic murmur at the apex. ABDOMEN: Soft. EXTREMITIES: Did not reveal any edema. Peripheral pulses are felt. LABORATORIES: Labs show a hemoglobin of 10.2, BUN is 13, creatinine is 0.7. Potassium is low at 3.1. UA is positive. ASSESSMENT AND PLAN: 1. Syncope, probably vasovagal related to the diarrhea. 2. Persistent atrial fibrillation with poorly controlled ventricular rate. PLAN: I will continue the beta jess. Follow the INR and adjust the Coumadin dose as needed. Obtain a 2D echo on her tomorrow morning. Patient had a carotid duplex study that did not reveal significant carotid stenosis. MMODL / IJN: [id number] /
[2022-06-19] MEDS: POTASSIUM CHLORIDE ER 20 MEQ TAB.ER PO SCH ×2 (01:39→01:40)
[2022-06-19] MEDS: VANCOMYCIN 125 MG CAPSULE PO SCH ×5 (03:08→21:45)
[2022-06-19 04:39] LABS: INR 2.8 (<1.2); Prothrombin Time 27.8 sec (9.0-12.0)
[2022-06-19] MEDS: SODIUM CHLORIDE 0.9% 1,000 ML IV SCH (05:08)
--- NOTE | 2022-06-19 05:49 | PN ---
PROGRESS NOTE DATE OF SERVICE: 06/18/2022 SUBJECTIVE: This 87-year-old woman, who is admitted with syncope and fall. Also had an episode of diarrhea apparently. The patient closely monitored the patient recently had treated for C diff, but currently the C diff is negative. No chest pain. No palpitations. PAST MEDICAL HISTORY: Reviewed. PHYSICAL EXAMINATION: VITAL SIGNS: Pulse is 92, blood pressure 130/70, respirations 18. HEENT: Conjunctivae normal. CARDIOVASCULAR: S1, S2. RESPIRATIONS: A few scattered rhonchi. ABDOMEN: Soft. NERVOUS SYSTEM: Diffusely weak. LABORATORY DATA: WBC noted, hemoglobin 10.2. The rest of the labs are noted. ASSESSMENT: 1. Syncope for evaluation, possibly hypovolemic. 2. Recent Clostridium difficile. 3. Continued diarrhea. 4. Multiple medical issues. RECOMMENDATION: This 87-year-old woman, who presented with multiple complex medical issues. We will monitor the patient closely. Continue the current medication. Add Questran to the current regimen. Otherwise, Dr. Kenney, is being consulted. 2D echo and carotid Doppler was also requested. Guarded prognosis. Further recommendation to follow. MMODL / IJN: [id number] /
[2022-06-19] MEDS: LEVOTHYROXINE 50 MCG TAB PO SCH (06:53)
[2022-06-19] MEDS: CHOLESTYRAMINE (WITH SUGAR) 4 GM PACKET PO SCH ×3 (09:01→17:45)
[2022-06-19] MEDS: METOPROLOL TARTRATE 25 MG TAB PO SCH ×2 (09:03→21:45)
--- NOTE | 2022-06-19 10:26 | P.PN ---
Subjective Progress Note Date: 06/19/22 HISTORY OF PRESENT ILLNESS: this the patient was admitted to the hospital secondary to diarrhea and syncope. Patient was found to be positive for C. diff. Patient denies any chest pain or pressure. She denies any shortness of breath. Blood pressures are running on the higher side this morning. She remains on Coumadin. INR is therapeutic. PHYSICAL EXAM: VITAL SIGNS: Reviewed. GENERAL: Well-developed in no acute distress. NECK: Supple. No JVD or thyromegaly LUNGS: Respirations even and unlabored. Lungs essentially clear to auscultation bilaterally. HEART: Tachycardic. Irregular rate and rhythm. S1 and S2 heard. EXTREMITIES: Normal range of motion. No clubbing or cyanosis. Peripheral pulses intact. No lower extremity edema ASSESSMENT: Syncope, possible vasovagal Persistent atrial fibrillation with RVR Diarrhea Acute C. diff infection PLAN: Continue Coumadin. Monitor INR. 2D echo ordered. Await results. Initiate telemetry monitoring secondary to syncopal episode at home Increase metoprolol tartrate to 75 mg twice a day Continue to monitor blood pressure Orthostatic BP checked and unremarkable Further recommendations pending patient course Nurse practitioner note has been reviewed by physician. Signing provider agrees with the documented findings, assessment, and plan of care. Objective - Vital Signs Vital signs: Vital Signs Temp 98.2 F 06/19/22 08:00 Pulse 126 H 06/19/22 08:00 Resp 16 06/19/22 08:00 BP 170/84 06/19/22 08:00 Pulse Ox 94 L 06/19/22 08:00 FiO2 Intake & Output 06/18/22 06/19/22 06/19/22 18:59 06:59 18:59 Other: # Voids 1 4 - Labs CBC & Chem 7: 06/18/22 07:20 06/19/22 03:41 Labs: Abnormal Lab Results - Last 24 Hours (Table) 06/18/22 06/18/22 06/18/22 Range/Units 07:20 07:20 18:29 RBC 3.17 L (4.10-5.20) X 10*6/uL Hgb 10.2 L (12.0-15.0) g/dL Hct 31.1 L (37.2-46.3) % MCV 98.1 H (80.0-97.0) fL MCH 32.2 H (27.0-32.0) pg RDW 15.6 H (11.5-14.5) % PT (9.0-12.0) sec INR (<1.2) Potassium 3.1 L 3.4 L (3.5-5.5) mmol/L Calcium 8.5 L (8.7-10.3) mg/dL Albumin/Globulin Ratio 1.27 L (1.60-3.17) g/dL 06/18/22 06/19/22 Range/Units 22:50 03:41 RBC (4.10-5.20) X 10*6/uL Hgb (12.0-15.0) g/dL Hct (37.2-46.3) % MCV (80.0-97.0) fL MCH (27.0-32.0) pg RDW (11.5-14.5) % PT 27.8 H (9.0-12.0) sec INR 2.8 H (<1.2) Potassium 3.2 L (3.5-5.5) mmol/L Calcium (8.7-10.3) mg/dL Albumin/Globulin Ratio (1.60-3.17) g/dL Microbiology - Last 24 Hours (Table) 06/18/22 17:18 Stool Culture - Preliminary Stool
[2022-06-19] MEDS: LOSARTAN-HCTZ 50-12.5 MG 1 EACH TAB PO SCH (10:53)
[2022-06-19 13:18] VITALS: BMI 18.8
[2022-06-19 14:38] LABS: Basophils % (A) 1 %; Eosinophils # (A) 0.1 k/uL (0-0.7); Eosinophils % (A) 1 %; HCT 34.6 % (34.0-46.0); HGB 11.3 gm/dL (11.4-16.0); Hypochromasia Moderate; Lymphocytes # (A) 1.3 k/uL (1.0-4.8); Lymphocytes % (A) 23 %; MCH 32.9 pg (25.0-35.0); MCHC 32.5 g/dL (31.0-37.0); MCV 101.2 fL (80.0-100.0); Macrocytosis Slight; Mean Platelet Volume 8.3; Monocytes # (A) 0.6 k/uL (0-1.0); Monocytes % (A) 11 %; Neutrophils # (A) 3.3 k/uL (1.3-7.7); Neutrophils % (A) 60 %; Platelet Count 250 k/uL (150-450); RBC 3.42 m/uL (3.80-5.40); WBC 5.5 k/uL (3.8-10.6)
[2022-06-19 14:48] LABS: African American GFR (CKD) >90 (>60 ml/min/1.73 sqM); Anion Gap 13 mmol/L; Blood Urea Nitrogen 12 mg/dL (7-17); Calcium 8.7 mg/dL (8.4-10.2); Carbon Dioxide 19 mmol/L (22-30); Chloride 103 mmol/L (98-107); Glucose 128 mg/dL (74-99); Non-African American GFR(CKD) 79 (>60 ml/min/1.73 sqM); Potassium 3.7 mmol/L (3.5-5.1); Sodium 135 mmol/L (137-145)
[2022-06-19] MEDS ORDERED: Potassium Replacement Protocol 1 EACH MISC MISCELLANE PRN (14:54)
[2022-06-19] MEDS ORDERED: POTASSIUM CHLORIDE ER 20 MEQ TAB.ER PO SCH (15:00)
[2022-06-19] MEDS: amLODIPine 10 MG TAB PO SCH (15:23)
[2022-06-19] MEDS ORDERED: WARFARIN 5 MG TAB PO ONE (18:00)
[2022-06-20] MEDS: LEVOTHYROXINE 50 MCG TAB PO SCH (05:49)
--- NOTE | 2022-06-20 06:03 | PN ---
PROGRESS NOTE DATE OF SERVICE: 06/19/2022 SUBJECTIVE: This is an 87-year-old woman who was admitted with acute C. difficile colitis, also had syncope. The patient had recurrent C diff. Dr. Kenney is following the patient closely. No chest pain. No palpitation. PHYSICAL EXAMINATION: VITAL SIGNS: Pulse is 126, blood pressure 170/80, respirations 16. CHEST: Clear to auscultation CARDIOVASCULAR: S1, S2. ABDOMEN: Soft, nontender. NERVOUS SYSTEM: No focal deficits. LABS: INR 2.8. ASSESSMENT: 1. Acute Clostridium difficile colitis. 2. Recurrent Clostridium difficile colitis. 3. Syncope possibly secondary to dehydration. 4. Atrial fibrillation. 5. Multiple medical issues. RECOMMENDATIONS: Recommend to continue current management and symptomatic treatment. Increase the dose of vancomycin. Closely follow with Infectious Disease. Prognosis guarded. If the patient has recurrent infections, stool transplantation is an option. See orders for further details. MMODL / IJN: [id number] /
[2022-06-20 08:08] LABS: INR 3.3 (<1.2); Prothrombin Time 32.4 sec (9.0-12.0)
[2022-06-20] MEDS: METOPROLOL TARTRATE 25 MG TAB PO SCH ×2 (08:39→20:02)
[2022-06-20] MEDS: CHOLESTYRAMINE (WITH SUGAR) 4 GM PACKET PO SCH ×3 (08:39→18:15)
[2022-06-20] MEDS: VANCOMYCIN 125 MG CAPSULE PO SCH ×4 (08:39→20:02)
[2022-06-20] MEDS: amLODIPine 10 MG TAB PO SCH (08:39)
[2022-06-20 11:17] LABS: Basophils # (A) 0.04 X 10*3/uL (0.00-0.10); Basophils % (A) 0.8 %; HCT 34.8 % (37.2-46.3); HGB 10.8 g/dL (12.0-15.0); Immature Grans, Automated 0.6 %; Lymphocytes # (A) 1.37 X 10*3/uL (0.90-5.00); MCH 31.7 pg (27.0-32.0); MCV 102.1 fL (80.0-97.0); Mean Platelet Volume 10.2 fL (9.5-12.2); Monocytes # (A) 0.81 X 10*3/uL (0.20-1.00); NRBC Per 100 WBC 0 /100 WBCS (0.0-0.0); Neutrophils # (A) 2.72 X 10*3/uL (1.80-7.70); Neutrophils % (A) 53.6 %; Platelet Count 263 X 10*3/uL (140-440); RBC 3.41 X 10*6/uL (4.10-5.20); RDW 15.9 % (11.5-14.5); WBC 5.07 X 10*3/uL (4.50-10.00)
--- NOTE | 2022-06-20 11:22 | P.PN ---
Subjective Progress Note Date: 06/20/22 HISTORY OF PRESENT ILLNESS: this the patient was admitted to the hospital secondary to diarrhea and syncope. Patient was found to be positive for C. diff. Patient denies any chest pain or pressure. She denies any shortness of breath. Blood pressures are running on the higher side this morning. She remains on Coumadin. INR is therapeutic. 06/20/2022 Patient examined this morning the bedside. Patient denies chest pain or pressure. She denies shortness of breath. Heart rate is better controlled today. Vital signs are stable. PHYSICAL EXAM: VITAL SIGNS: Reviewed. GENERAL: Well-developed in no acute distress. NECK: Supple. No JVD or thyromegaly LUNGS: Respirations even and unlabored. Lungs essentially clear to auscultation bilaterally. HEART: Tachycardic. Irregular rate and rhythm. S1 and S2 heard. EXTREMITIES: Normal range of motion. No clubbing or cyanosis. Peripheral pulses intact. No lower extremity edema ASSESSMENT: Syncope, possible vasovagal Persistent atrial fibrillation with RVR Diarrhea Acute C. diff infection PLAN: Continue current cardiac medications Patient is stable from a cardiac standpoint We will sign off. Please reconsult if needed. Nurse practitioner note has been reviewed by physician. Signing provider agrees with the documented findings, assessment, and plan of care. Objective - Vital Signs Vital signs: Vital Signs Temp 97.4 F L 06/20/22 07:39 Pulse 87 06/20/22 07:39 Resp 17 06/20/22 07:39 BP 144/80 06/20/22 07:39 Pulse Ox 97 06/20/22 07:39 FiO2 Intake & Output 06/19/22 06/20/22 06/20/22 18:59 06:59 18:59 Intake Total 600 980 Balance 600 980 Weight 45.359 kg Intake: Intake, IV Titration 600 500 Amount Sodium Chloride 0.9% 1, 600 500 000 ml @ 50 mls/hr IV . Q20H REED Rx#:[id number] Oral 480 Other: Voiding Method Toilet # Voids 6 2 # Bowel Movements 2 - Labs CBC & Chem 7: 06/20/22 07:30 06/19/22 14:03 Labs: Abnormal Lab Results - Last 24 Hours (Table) 06/18/22 06/19/22 06/19/22 Range/Units 17:18 14:03 14:03 RBC 3.42 L (3.80-5.40) m/uL Hgb 11.3 L (11.4-16.0) gm/dL Hct (37.2-46.3) % MCV 101.2 H (80.0-100.0) fL MCHC (32.0-37.0) g/dL RDW (11.5-14.5) % PT (9.0-12.0) sec INR (<1.2) Sodium 135 L (137-145) mmol/L Carbon Dioxide 19 L (22-30) mmol/L Glucose 128 H (74-99) mg/dL Stool Lactoferrin POSITIVE A (NEGATIVE) 06/20/22 06/20/22 Range/Units 07:30 07:30 RBC 3.41 L (3.80-5.40) m/uL Hgb 10.8 L (11.4-16.0) gm/dL Hct 34.8 L (37.2-46.3) % MCV 102.1 H (80.0-100.0) fL MCHC 31.0 L (32.0-37.0) g/dL RDW 15.9 H (11.5-14.5) % PT 32.4 H (9.0-12.0) sec INR 3.3 H (<1.2) Sodium (137-145) mmol/L Carbon Dioxide (22-30) mmol/L Glucose (74-99) mg/dL Stool Lactoferrin (NEGATIVE) Microbiology - Last 24 Hours (Table) 06/18/22 17:18 Stool Culture - Preliminary Stool
[2022-06-20 11:27] LABS: African American GFR (CKD) 90.1 (60.0-200.0); Albumin/Globulin Ratio 1.17 (1.60-3.17); Anion Gap 13.4 mmol/L (10.00-18.00); BUN/Creat Ratio 13.15 Ratio (12.00-20.00); Blood Urea Nitrogen 8.9 mg/dL (9.0-27.0); Calcium 8.9 mg/dL (8.7-10.3); Carbon Dioxide 20.8 mmol/L (20.0-27.5); Globulin 3.4 g/dL (1.6-3.3); Non-African American GFR(CKD) 77.7 (60.0-200.0); Potassium 3.6 mmol/L (3.5-5.5); Total Bilirubin 0.5 mg/dL (0.30-1.20); Total Protein 7.4 g/dL (6.2-8.2)
--- NOTE | 2022-06-20 16:12 | CA ---
Transthoracic Echo Report Name: Fadumo Lindsey Age: 87 Gender: F : [id number] Exam Date: 06/20/2022 08:42 Exam Location: [facility] Ht (in): 60 Wt (lb): 100 Ordering Physician: Danika Bray Attending/Referring Phys: Slip Laster Bertha Feliciano, LUDWIG Procedure CPT: Indications: Syncope Cardiac Hx: Technical Quality: Good Contrast 1: Total Dose (mL): Contrast 2: Total Dose (mL): MEASUREMENTS (Male / Female) Normal Values 2D ECHO LV Diastolic Diameter PLAX 3.5 cm 4.2 - 5.9 / 3.9 - 5.3 cm LV Systolic Diameter PLAX 2.6 cm IVS Diastolic Thickness 1.1 cm 0.6 - 1.0 / 0.6 - 0.9 cm LVPW Diastolic Thickness 1.4 cm 0.6 - 1.0 / 0.6 - 0.9 cm LV Relative Wall Thickness 0.7 RV Internal Dim ED PLAX 2.7 cm LA Systolic Diameter LX 5.0 cm 3.0 - 4.0 / 2.7 - 3.8 cm LA Volume 125.1 cm??? 18 - 58 / 22 - 52 cm??? M-MODE Aortic Root Diameter MM 3.1 cm LA Systolic Diameter MM 4.4 cm LA Ao Ratio MM 1.4 AV Cusp Separation MM 1.7 cm DOPPLER TR Peak Velocity 369.4 cm/s TR Peak Gradient 54.6 mmHg Right Ventricular Systolic Press 59.6 mmHg FINDINGS Left Ventricle Left ventricular ejection fraction is estimated at 55%. Right Ventricle Normal right ventricular size and function.moderate pulmonary hypertension. Right Atrium Moderate right atrial dilatation. Left Atrium Severely increased left atrial diameter. Severely increased left atrial volume. Moderately increased left atrial area. Mitral Valve Structurally normal mitral valve. Moderate mitral regurgitation. Aortic Valve Trileaflet aortic valve. Mild aortic regurgitation. Tricuspid Valve Structurally normal tricuspid valve. Moderate tricuspid regurgitation. Pulmonic Valve Structurally normal pulmonic valve. Pericardium Normal pericardium. Aorta Normal size aortic root and proximal ascending aorta. CONCLUSIONS Preserved LV systolic function Biatrial enlargement Patient with atrial fibrillation Previewed by: Dr. Vlad Hernandez MD (Electronically Signed) Final Date: 20 June 2022 16:11
[2022-06-20] MEDS ORDERED: WARFARIN 1 MG TAB PO ONE (18:00)
[2022-06-21] MEDS: LEVOTHYROXINE 50 MCG TAB PO SCH (05:41)
[2022-06-21 06:04] LABS: INR 3.2 (<1.2); Prothrombin Time 32.3 sec (9.0-12.0)
[2022-06-21 07:21] VITALS: BP 139/72; PULSE 86; RESP 16; TEMP 98.2
[2022-06-21] MEDS: METOPROLOL TARTRATE 25 MG TAB PO SCH (09:15)
[2022-06-21] MEDS: VANCOMYCIN 125 MG CAPSULE PO SCH ×2 (09:15→12:52)
[2022-06-21] MEDS: CHOLESTYRAMINE (WITH SUGAR) 4 GM PACKET PO SCH (09:16)
[2022-06-21] MEDS: amLODIPine 10 MG TAB PO SCH (09:16)
--- NOTE | 2022-06-21 12:37 | P.PN ---
Subjective Progress Note Date: 06/19/22 Principal diagnosis: C diff colitis Patient is a 87-year old female presenting to the hospital with intractable diarrhea, patient did have a positive stool for C. difficile and was started on oral vancomycin. On today's evaluation that is 06/19/2022, the patient denies having any fever or any chills, the patient is still complaining of diarrhea no blood or mucus in t he stool no nausea no vomiting no chest pain shortness of breath or cough Objective - Vital Signs Vital signs: Vital Signs Temp 98.2 F 06/19/22 08:00 Pulse 126 H 06/19/22 08:00 Resp 16 06/19/22 08:00 BP 170/84 06/19/22 08:00 Pulse Ox 94 L 06/19/22 08:00 FiO2 Intake & Output 06/18/22 06/19/22 06/19/22 18:59 06:59 18:59 Other: # Voids 1 4 - Exam GENERAL DESCRIPTION: Elderly female lying in bed, no distress. No tachypnea or accessory muscle of respiration use. LUNGS: Unlabored breathing. Decreased breath sound at the base HEART: S1, S2, regular rate and rhythm. No loud murmur ABDOMEN: Soft, no tenderness , guarding or rigidity, no organomegaly EXTREMITIES: No edema of feet. - Labs CBC & Chem 7: 06/20/22 07:30 06/20/22 07:30 Labs: Abnormal Lab Results - Last 24 Hours (Table) 06/18/22 06/18/22 06/18/22 Range/Units 07:20 17:18 18:29 PT (9.0-12.0) sec INR (<1.2) Potassium 3.1 L 3.4 L (3.5-5.5) mmol/L Calcium 8.5 L (8.7-10.3) mg/dL Albumin/Globulin Ratio 1.27 L (1.60-3.17) g/dL Stool Lactoferrin POSITIVE A (NEGATIVE) 06/18/22 06/19/22 Range/Units 22:50 03:41 PT 27.8 H (9.0-12.0) sec INR 2.8 H (<1.2) Potassium 3.2 L (3.5-5.5) mmol/L Calcium (8.7-10.3) mg/dL Albumin/Globulin Ratio (1.60-3.17) g/dL Stool Lactoferrin (NEGATIVE) Microbiology - Last 24 Hours (Table) 06/18/22 17:18 Stool Culture - Preliminary Stool Assessment and Plan (1) C. difficile diarrhea Current Visit: No Status: Acute Code(s): A04.72 - ENTEROCOLITIS D/T CLOSTRIDIUM DIFFICILE, NOT SPCF RECUR SNOMED Code(s): 7525941617759 Plan: 1patient presented to hospital with intractable diarrhea in this patient with a questionable recent history of C. difficile colitis concerning for possible rec urrence or relapse of C. difficile colitis however stool C. difficile came back negative on admission. 2Stool for C. difficile PCR came back positive. 3patient to continue with oral vancomycin and continue the Questran has been advised increase her probiotic intake if any persistent diarrhea by tomorrow to switch her to Dificid Time with Patient: Less than 30
--- NOTE | 2022-06-21 12:38 | P.PN ---
Subjective Progress Note Date: 06/20/22 Principal diagnosis: C diff colitis Patient is a 87-year old female presenting to the hospital with intractable diarrhea, patient did have a positive stool for C. difficile and was started on oral vancomycin. On today's evaluation that is 06/20/2022 the patient remains to be afebrile, the patient is feeling better today the patient diarrhea has slowed down and is for [place] up denies any blood or mucus in the stool no abdominal pain no nausea vomiting no chest pain shortness of breath or cough Objective - Vital Signs Vital signs: Vital Signs Temp 97.9 F 06/20/22 14:00 Pulse 84 06/20/22 14:00 Resp 15 06/20/22 14:00 BP 112/69 06/20/22 14:00 Pulse Ox 92 L 06/20/22 14:00 FiO2 Intake & Output 06/19/22 06/20/22 06/20/22 18:59 06:59 18:59 Intake Total 600 980 Balance 600 980 Weight 45.359 kg Intake: Intake, IV Titration 600 500 Amount Sodium Chloride 0.9% 1, 600 500 000 ml @ 50 mls/hr IV . Q20H [facility] Rx#:[id number] Oral 480 Other: Voiding Method Toilet # Voids 6 2 1 # Bowel Movements 2 - Exam GENERAL DESCRIPTION: Elderly female lying in bed, no distress. No tachypnea or accessory muscle of respiration use. LUNGS: Unlabored breathing. Decreased breath sound at the base HEART: S1, S2, regular rate and rhythm. No loud murmur ABDOMEN: Soft, no tenderness , guarding or rigidity, no organomegaly EXTREMITIES: No edema of feet. - Labs CBC & Chem 7: 06/20/22 07:30 06/20/22 07:30 Labs: Abnormal Lab Results - Last 24 Hours (Table) 06/20/22 06/20/22 06/20/22 Range/Units 07:30 07:30 07:30 RBC 3.41 L (4.10-5.20) X 10*6/uL Hgb 10.8 L (12.0-15.0) g/dL Hct 34.8 L (37.2-46.3) % MCV 102.1 H (80.0-97.0) fL MCHC 31.0 L (32.0-37.0) g/dL RDW 15.9 H (11.5-14.5) % PT 32.4 H (9.0-12.0) sec INR 3.3 H (<1.2) Sodium 134 L (135-145) mmol/L BUN 8.9 L (9.0-27.0) mg/dL Globulin 3.4 H (1.6-3.3) g/dL Albumin/Globulin Ratio 1.17 L (1.60-3.17) g/dL Assessment and Plan (1) C. difficile diarrhea Current Visit: No Status: Acute Code(s): A04.72 - ENTEROCOLITIS D/T CLOSTRIDIUM DIFFICILE, NOT SPCF RECUR SNOMED Code(s): 2189940941822 Plan: 1patient presented to hospital with intractable diarrhea in this patient with a questionable recent history of C. difficile colitis concerning for possible recurrence or relapse of C. difficile colitis however stool C. difficile came back negative on admission. 2Stool for C. difficile PCR came back positive. 3Patient has shown clinical improvement over the last 24 hours we will continue the patient on vancomycin and Questran avoid antimotility agents and monitor clinical course closely Time with Patient: Less than 30
--- NOTE | 2022-06-21 12:39 | P.PN ---
Subjective Progress Note Date: 06/21/22 Principal diagnosis: C diff colitis Patient is a 87-year old female presenting to the hospital with intractable diarrhea, patient did have a positive stool for C. difficile and was started on oral vancomycin. On today's evaluation that is 06/21/2022 the patient denies having any fever or any chills, the patient continue to feel better mention the diarrhea has resolve d and did have a soft bowel movement today but denies any blood or mucus in the stool no abdominal pain no nausea no pain no chest pain shortness of breath or cough feeling better wants to go home Objective - Vital Signs Vital signs: Vital Signs Temp 98.2 F 06/21/22 07:20 Pulse 86 06/21/22 07:20 Resp 16 06/21/22 07:20 BP 139/72 06/21/22 07:20 Pulse Ox 97 06/21/22 07:20 FiO2 Intake & Output 06/20/22 06/21/22 06/21/22 18:59 06:59 18:59 Other: Voiding Method Toilet # Voids 1 4 - Exam GENERAL DESCRIPTION: Elderly female lying in bed, no distress. No tachypnea or accessory muscle of respiration use. LUNGS: Unlabored breathing. Decreased breath sound at the base HEART: S1, S2, regular rate and rhythm. No loud murmur ABDOMEN: Soft, no tenderness , guarding or rigidity, no organomegaly EXTREMITIES: No edema of feet. - Labs CBC & Chem 7: 06/20/22 07:30 06/20/22 07:30 Labs: Abnormal Lab Results - Last 24 Hours (Table) 06/21/22 Range/Units 05:36 PT 32.3 H (9.0-12.0) sec INR 3.2 H (<1.2) Microbiology - Last 24 Hours (Table) 06/18/22 17:18 Stool Culture - Preliminary Stool Assessment and Plan (1) C. difficile diarrhea Current Visit: No Status: Acute Code(s): A04.72 - ENTEROCOLITIS D/T CLOSTRIDIUM DIFFICILE, NOT SPCF RECUR SNOMED Code(s): 5125494197550 Plan: 1patient presented to hospital with intractable diarrhea in this patient with a questionable recent history of C. difficile colitis concerning for possible recurrence or relapse of C. difficile colitis however stool C. difficile came back negative on admission. 2Stool for C. difficile PCR came back positive. 3Patient has shown clinical improvement , She will finish therapy with oral vancomycin x10 days advised to increase her probiotic and yogurt intake and close outpatient follow-up Time with Patient: Less than 30
[2022-06-21] MEDS ORDERED: WARFARIN 1 MG TAB PO ONE (18:00)
[2022-06-21] MEDS ORDERED: WARFARIN 7.5 MG TAB PO SCH (21:00)
== END 2022-06-21 17:21 | disposition home health service (06) ==
LOC: EC 08:21 → 6NMEDSUR 12:29 → 4SSUR 12:44
PROVIDERS: ADMIT Internal Medicine; ATTEND Internal Medicine
DX: R55 Syncope and collapse (principal); A04.72 Enterocolitis due to Clostridium difficile, not specified as recurrent; E86.0 Dehydration; S51.811A Laceration without foreign body of right forearm, initial encounter; J45.909 Unspecified asthma, uncomplicated; E03.9 Hypothyroidism, unspecified; I35.1 Nonrheumatic aortic (valve) insufficiency; M43.12 Spondylolisthesis, cervical region; I11.9 Hypertensive heart disease without heart failure; I70.0 Atherosclerosis of aorta; I65.23 Occlusion and stenosis of bilateral carotid arteries; I48.19 Other persistent atrial fibrillation; Z79.01 Long term (current) use of anticoagulants; Z79.890 Hormone replacement therapy; Z79.899 Other long term (current) drug therapy; Z90.710 Acquired absence of both cervix and uterus; Z96.652 Presence of left artificial knee joint; Z98.42 Cataract extraction status, left eye; Z98.41 Cataract extraction status, right eye; Z80.7 Family history of other malignant neoplasms of lymphoid, hematopoietic and related tissues; Z23 Encounter for immunization; Z80.8 Family history of malignant neoplasm of other organs or systems
CPT/HCPCS: 90471; 96360; 96361; 99285; 36415; 93005 ×2; 93306; 80053 ×3; 80048; 83735; 84132 ×2; 85025 ×4; 85610 ×5; 85730; 81001; 87324; 87493; 87045; 83630; 87046; 71046; 93880; 72125; 70450; 90715; 12004; G0378 ×5; J2001

== ENCOUNTER 2022-07-14 22:10 | Emergency (ER) | payer MEDICARE ==
[2022-07-14 22:29] VITALS: BP 149/90; PULSE 107; RESP 20; TEMP 97.9
[2022-07-15] MEDS ORDERED: SODIUM CHLORIDE 0.9% 1,000 ML IV STA (00:08)
--- NOTE | 2022-07-15 00:13 | ED ---
Nausea/Vomiting/Diarrhea HPI - General Chief complaint: Nausea/Vomiting/Diarrhea Stated complaint: Diarrhea Time Seen by Provider: 07/14/22 23:59 Source: patient, RN notes reviewed Mode of arrival: ambulatory Limitations: no limitations - History of Present Illness Initial comments: This is a pleasant 87-year-old female presents to emergency department complaining of ongoing diarrhea. Patient states in late May she was admitted here for extreme differential colitis. Patient at that time also had electrolyte abnormality. Patient was kept for 6 days and eventually was sent home on vancomycin. Patient states she finished the antibiotic but continues to have 3 or 4 episodes of loose stools per day. Patient states she tested positive for C. diff colitis. Patient believes she still has this. Patient denying any pain or vomiting. No hematochezia or melena. No fever or chills. No headache, no fever or chills, no changes in vision or hearing, no sore throat or difficulty with speech, no neck pain, no chest pain or shortness of breath, no abdominal pain, no nausea or vomiting, no changes in urination, no numbness or tingling, no extremity pain, no skin rashes or lesions. Past medical, surgical, social, and family history reviewed. - Related Data Home Medications Medication Instructions Recorded Confirmed Levothyroxine Sodium [Synthroid] 50 mcg PO DAILY 03/06/14 06/17/22 Metoprolol Tartrate [Lopressor] 50 mg PO BID 06/17/16 06/17/22 Warfarin [Coumadin] 5 mg PO SUMOTUTHFRSA@2100 06/19/16 06/17/22 Metoprolol Tartrate 25 mg PO DAILY@1200 11/08/21 06/17/22 Warfarin [Coumadin] 7.5 mg PO WE@2100 06/03/22 06/17/22 Previous Rx's Medication Instructions Recorded Cholestyramine (with Sugar) 4 gm PO BID #20 packet 06/21/22 [Questran] Losartan [Cozaar] 50 mg PO DAILY #30 tab 06/21/22 Vancomycin Oral Solution 250 mg PO Q6HR #200 ml 06/21/22 Allergies Allergy/AdvReac Type Severity Reaction Status Date / Time No Known Allergies Allergy Verified 07/14/22 22:29 Review of Systems ROS Statement: Those systems with pertinent positive or pertinent negative responses have been documented in the HPI. ROS Other: All systems not noted in ROS Statement are negative. Past Medical History Past Medical History: Atrial Fibrillation, Asthma, Hypertension, Osteoarthritis (OA), Thyroid Disorder Additional Past Medical History / Comment(s): Aortic regurgitation, hypothyroid, DJD History of Any Multi-Drug Resistant Organisms: C-DIFF Date of last positivie culture/infection: 11/16/2014 MDRO Source:: stool Past Surgical History: Hysterectomy, Joint Replacement, Orthopedic Surgery Additional Past Surgical History / Comment(s): BILATERAL CATARACTS (2013) TOTAL LEFT KNEE REPLACEMENT, R hip IT nailing, colonoscopy, bronchoscopy Past Anesthesia/Blood Transfusion Reactions: No Reported Reaction Past Psychological History: No Psychological Hx Reported Smoking Status: Never smoker Past Alcohol Use History: Rare Past Drug Use History: None Reported - Past Family History Father Family Medical History: Cancer Additional Family Medical History / Comment(s): unsure. "Possibly bone cancer," per patient. Sister(s) Family Medical History: Cancer Additional Family Medical History / Comment(s): Lymphoma Brother(s) Family Medical History: Cancer Additional Family Medical History / Comment(s): Melanoma General Exam - General Exam Comments Initial Comments: Patient does not appear to be ill or toxic. Vital signs are reviewed. Patient shows no evidence of systemic illness. Capillary refill less than 2 seconds. No mottling. Limitations: no limitations General appearance: alert, in no apparent distress Head exam: Present: atraumatic, normocephalic, normal inspection Eye exam: Present: normal appearance, PERRL, EOMI. Absent: scleral icterus, conjunctival injection, periorbital swelling ENT exam: Present: normal exam, normal oropharynx, mucous membranes moist, normal external ear exam Neck exam: Present: normal inspection, full ROM. Absent: tenderness, meningismus, lymphadenopathy Respiratory exam: Present: normal lung sounds bilaterally. Absent: respiratory distress, wheezes, rales, rhonchi, stridor Cardiovascular Exam: Present: regular rate, normal rhythm, normal heart sounds. Absent: systolic murmur, diastolic murmur, rubs, gallop, clicks GI/Abdominal exam: Present: soft, normal bowel sounds. Absent: distended, tenderness, guarding, rebound, rigid Extremities exam: Present: normal inspection, full ROM, normal capillary refill. Absent: tenderness, pedal edema, joint swelling, calf tenderness Back exam: Present: normal inspection Neurological exam: Present: alert, oriented X3, CN II-XII intact Psychiatric exam: Present: normal affect, normal mood Skin exam: Present: warm, dry, intact, normal color. Absent: rash Course Vital Signs 07/14/22 22:27 Temperature 97.9 F Pulse Rate 107 H Respiratory 20 Rate Blood Pressure 149/90 O2 Sat by Pulse 96 Oximetry Medical Decision Making - Medical Decision Making We'll attempt to get a repeat stool sample for culture, white blood cells, C. diff toxin, and analysis. Otherwise the patient is in no distress and is complaining of no pain. Patient states she is sick of having the stools. Patient eating and drinking normally. Patient was reevaluated and was in no acute distress. Patient denying any pain. Patient's laboratory secretions reveal a therapeutic INR, sodium minimally low at 130, monoxide is 20, BUNs minimally elevated at 36. Creatinine is normal. Was 1:30. AST minor elevation at 40. Note the patient's anion gap was normal. CBC showed percents otherwise normal. Patient reevaluated prior to discharge and is in no distress. Patient able to actively without difficulty. I discussed all findings and treatment plan with the patient. Suggested that we write an outpatient prescription to get stool studies done to include C. diff toxin. Both the son and the patient ended up agreeing with this treatment plan. Patient was first stating that she needed to be treated for C. diff colitis. Patient has only been having 3 or 4 loose stools per day. After long discussion I did offer empiric treatment to the p atient which she actually deferred. The case was discussed in detail with ED attending physician. Presentation, findings, treatment plan discussed in detail. Architecture Faculty Member Dr. Candelario - Lab Data Result diagrams: 07/15/22 00:28 07/15/22 00:28 Lab Results 07/15/22 07/15/22 07/15/22 Range/Units 00:28 00:28 00:28 WBC 8.4 (3.8-10.6) k/uL RBC 3.68 L (3.80-5.40) m/uL Hgb 11.8 (11.4-16.0) gm/dL Hct 35.5 (34.0-46.0) % MCV 96.3 (80.0-100.0) fL MCH 32.0 (25.0-35.0) pg MCHC 33.2 (31.0-37.0) g/dL RDW 14.9 (11.5-15.5) % Plt Count 250 (150-450) k/uL MPV 7.9 Neutrophils % 83 % Lymphocytes % 8 % Monocytes % 6 % Eosinophils % 1 % Basophils % 0 % Neutrophils # 7.0 (1.3-7.7) k/uL Lymphocytes # 0.7 L (1.0-4.8) k/uL Monocytes # 0.5 (0-1.0) k/uL Eosinophils # 0.1 (0-0.7) k/uL Basophils # 0.0 (0-0.2) k/uL PT 27.7 H (9.0-12.0) sec INR 2.8 H (<1.2) Sodium 134 L (137-145) mmol/L Potassium 3.6 (3.5-5.1) mmol/L Chloride 102 (98-107) mmol/L Carbon Dioxide 20 L (22-30) mmol/L Anion Gap 12 mmol/L BUN 36 H (7-17) mg/dL Creatinine 0.87 (0.52-1.04) mg/dL Est GFR (CKD-EPI)AfAm 68 (>60 ml/min/1.73 sqM) Est GFR (CKD-EPI)NonAf 59 (>60 ml/min/1.73 sqM) Glucose 130 H (74-99) mg/dL Calcium 9.7 (8.4-10.2) mg/dL Phosphorus 3.6 (2.5-4.5) mg/dL Magnesium 1.9 (1.6-2.3) mg/dL Total Bilirubin 0.4 (0.2-1.3) mg/dL AST 40 H (14-36) U/L ALT 20 (4-34) U/L Alkaline Phosphatase 95 (38-126) U/L Total Protein 8.1 (6.3-8.2) g/dL Albumin 4.5 (3.5-5.0) g/dL Disposition Clinical Impression: Acute diarrhea, History of Clostridioides difficile colitis, Hyponatremia Disposition: HOME SELF-CARE Condition: Good Instructions (If sedation given, give patient instructions): Acute Diarrhea (ED), Hyponatremia (ED) Additional Instructions: Return to the outpatient laboratory with a stool sample. Make sure you maintain hydration. Follow-up with your regular doctor. Follow-up with your regular physician as directed. Return to the ER immediately if any symptoms worsen, new symptoms arise, or any other problems develop. Is patient prescribed a controlled substance at d/c from ED?: No Referrals: Ander Wolff MD [Primary Care Provider] - 1-2 days Time of Disposition: 02:15
[2022-07-15 00:43] LABS: Basophils % (A) 0 %; Eosinophils # (A) 0.1 k/uL (0-0.7); Eosinophils % (A) 1 %; HCT 35.5 % (34.0-46.0); HGB 11.8 gm/dL (11.4-16.0); Lymphocytes # (A) 0.7 k/uL (1.0-4.8); Lymphocytes % (A) 8 %; MCHC 33.2 g/dL (31.0-37.0); MCV 96.3 fL (80.0-100.0); Mean Platelet Volume 7.9; Monocytes # (A) 0.5 k/uL (0-1.0); Monocytes % (A) 6 %; Neutrophils % (A) 83 %; Platelet Count 250 k/uL (150-450); RBC 3.68 m/uL (3.80-5.40); RDW 14.9 % (11.5-15.5); WBC 8.4 k/uL (3.8-10.6)
[2022-07-15 00:49] LABS: INR 2.8 (<1.2); Prothrombin Time 27.7 sec (9.0-12.0)
[2022-07-15 00:53] LABS: Albumin 4.5 g/dL (3.5-5.0); Calcium 9.7 mg/dL (8.4-10.2); Magnesium 1.9 mg/dL (1.6-2.3); Phosphorus 3.6 mg/dL (2.5-4.5); Potassium 3.6 mmol/L (3.5-5.1); Total Bilirubin 0.4 mg/dL (0.2-1.3); Total Protein 8.1 g/dL (6.3-8.2)
== END 2022-07-15 02:30 | disposition home or self-care (01) ==
LOC: EC 22:10
DX: R19.7 Diarrhea, unspecified (principal); E87.1 Hypo-osmolality and hyponatremia; I48.91 Unspecified atrial fibrillation; I10 Essential (primary) hypertension; M19.90 Unspecified osteoarthritis, unspecified site; E07.9 Disorder of thyroid, unspecified; J45.909 Unspecified asthma, uncomplicated; E03.9 Hypothyroidism, unspecified; Z86.19 Personal history of other infectious and parasitic diseases; Z79.899 Other long term (current) drug therapy
CPT/HCPCS: 36415; 80053; 83735; 84100; 85025; 85610; 96360; 96361; 99284